=== PATIENT | female | born 1980 | race Caucasian/White ===

== ENCOUNTER 2020-10-29 11:16 | Inpatient (IN) | payer OTHER ==
[2020-10-29] MEDS ORDERED: NALOXONE 0.4 MG/ML 1 ML VIAL IV STA (11:35)
[2020-10-29] MEDS ORDERED: SODIUM CHLORIDE 0.9% 1,000 ML IV STA ×2 (11:35→11:36)
[2020-10-29 11:40] LABS: Glucose,Whole Blood 102 mg/dL (75-99)
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
[2020-10-29 12:02] LABS: Basophils % (A) 0 %; Eosinophils # (A) 0.2 k/uL (0-0.7); Eosinophils % (A) 2 %; HCT 47.3 % (34.0-46.0); HGB 16.2 gm/dL (11.4-16.0); Lymphocytes # (A) 1.9 k/uL (1.0-4.8); Lymphocytes % (A) 27 %; MCH 33.7 pg (25.0-35.0); MCHC 34.2 g/dL (31.0-37.0); MCV 98.6 fL (80.0-100.0); Mean Platelet Volume 8.4; Monocytes # (A) 0.3 k/uL (0-1.0); Monocytes % (A) 4 %; Neutrophils # (A) 4.8 k/uL (1.3-7.7); Neutrophils % (A) 66 %; Platelet Count 134 k/uL (150-450); RBC 4.79 m/uL (3.80-5.40); RDW 12.9 % (11.5-15.5); WBC 7.2 k/uL (3.8-10.6)
[2020-10-29 12:10] LABS: Amorphous Sediment,Urine Rare /hpf; Appearance,Urine Cloudy (Clear); Bacteria,Urine Few /hpf; Bilirubin,Urine Negative (Negative); Blood,Urine Negative (Negative); Color,Urine Yellow; Glucose,Urine (UA) Negative (Negative); Ketones,Urine Negative (Negative); Leukocyte Esterase,Urine Negative (Negative); Mucus,Urine Rare /hpf; Nitrite,Urine Negative (Negative); Protein,Urine Negative (Negative); Specific Gravity,Urine 1.017 (1.001-1.035); Squamous Epithelial Cell,Urine 5 /hpf (0-4); Urobilinogen,Urine <2.0 mg/dL (<2.0); WBC,Urine <1 /hpf (0-5)
[2020-10-29 12:14] LABS: ALT 16 U/L (4-34); AST 20 U/L (14-36); Acetaminophen <10.0 ug/mL; African American GFR (CKD) 59 (>60 ml/min/1.73 sqM); Albumin 4.2 g/dL (3.5-5.0); Alcohol <10 mg/dL; Alkaline Phosphatase 58 U/L (38-126); Anion Gap 7 mmol/L; Blood Urea Nitrogen 17 mg/dL (7-17); Calcium 9.3 mg/dL (8.4-10.2); Carbon Dioxide 23 mmol/L (22-30); Chloride 107 mmol/L (98-107); Creatine Kinase 42 U/L (30-135); Glucose 107 mg/dL (74-99); Lipase 240 U/L (23-300); Magnesium 2.1 mg/dL (1.6-2.3); Non-African American GFR(CKD) 51 (>60 ml/min/1.73 sqM); Potassium 4.3 mmol/L (3.5-5.1); Salicylate <1.0 mg/dL; Sodium 137 mmol/L (137-145); Total Bilirubin 0.6 mg/dL (0.2-1.3); Total Protein 7.2 g/dL (6.3-8.2)
[2020-10-29 12:16] LABS: Amphetamine Screen,Urine Detected (NotDetected); Barbiturate Screen,Urine Not Detected (NotDetected); Benzodiazepines Screen,Urine Detected (NotDetected); Cocaine Screen,Urine Not Detected (NotDetected); Methadone Screen, Urine Not Detected (NotDetected); Opiate Screen,Urine Not Detected (NotDetected); Oxycodone Screen, Urine Not Detected (NotDetected); Phencyclidine Screen,Urine Not Detected (NotDetected); Tricyclic Antidepressant,Urine Not Detected (NotDetected); Urn Cannabinoid Scrn Detected (NotDetected)
--- NOTE | 2020-10-29 12:45 | XR ---
EXAMINATION TYPE: XR chest 1V portable DATE OF EXAM: 10/29/2020 COMPARISON: Chest x-ray 07/17/2011 HISTORY: Altered mental status, unresponsive, drug overdose TECHNIQUE: Single frontal view of the chest is obtained. FINDINGS: There is no focal air space opacity, pleural effusion, or pneumothorax seen. The cardiac silhouette size is within normal limits. The osseous structures are intact. IMPRESSION: No acute process.
--- NOTE | 2020-10-29 13:08 | CT ---
EXAMINATION TYPE: CT brain an[place] wo con DATE OF EXAM: 10/29/2020 COMPARISON: CT 12/11/2009 HISTORY: overdose, altered mental status CT DLP: 1233.6 mGycm Automated exposure control for dose reduction was used. TECHNIQUE: CT scan of the head and cervical spine are performed without contrast. FINDINGS: There is no acute intracranial hemorrhage, mass effect, or midline shift identified. The ventricles and sulci are within normal limits in size. The globes are intact and the visualized sin uses are clear. Left frontal scalp shows some mild increased attenuation, correlate for ecchymosis, c ontusion Cervical spine is visualized in its entirety from C1 through upper thoracic levels and demonstrates s atisfactory alignment without evidence of acute fracture or dislocation. Prevertebral soft tissue ap pears within normal limits. The C1-C2 articulation is unremarkable. Air within the innominate vein, left jugular vein was likely introduced during intravenous administration IMPRESSION: 1. There is no acute fracture or dislocation evident in the cervical spine. 2. No acute intracranial hemorrhage, mass effect, or midline shift is seen.
[2020-10-29] MEDS ORDERED: NALOXONE 0.4 MG/ML 1 ML VIAL IV PRN (14:14)
--- NOTE | 2020-10-29 14:19 | ED ---
Medical Decision Making - Medical Decision Making The patient apparently is a patient Dr. Chen patient will be admitted to [facility] Dr. cohen - Lab Data Result diagrams: 10/29/20 11:53 10/29/20 11:53 Lab Results 10/29/20 10/29/20 10/29/20 Range/Units 11:39 11:53 11:53 WBC 7.2 (3.8-10.6) k/uL RBC 4.79 (3.80-5.40) m/uL Hgb 16.2 H (11.4-16.0) gm/dL Hct 47.3 H (34.0-46.0) % MCV 98.6 (80.0-100.0) fL MCH 33.7 (25.0-35.0) pg MCHC 34.2 (31.0-37.0) g/dL RDW 12.9 (11.5-15.5) % Plt Count 134 L (150-450) k/uL MPV 8.4 Neutrophils % 66 % Lymphocytes % 27 % Monocytes % 4 % Eosinophils % 2 % Basophils % 0 % Neutrophils # 4.8 (1.3-7.7) k/uL Lymphocytes # 1.9 (1.0-4.8) k/uL Monocytes # 0.3 (0-1.0) k/uL Eosinophils # 0.2 (0-0.7) k/uL Basophils # 0.0 (0-0.2) k/uL Sodium (137-145) mmol/L Potassium (3.5-5.1) mmol/L Chloride (98-107) mmol/L Carbon Dioxide (22-30) mmol/L Anion Gap mmol/L BUN (7-17) mg/dL Creatinine (0.52-1.04) mg/dL Est GFR (CKD-EPI)AfAm (>60 ml/min/1.73 sqM) Est GFR (CKD-EPI)NonAf (>60 ml/min/1.73 sqM) Glucose (74-99) mg/dL POC Glucose (mg/dL) 102 H (75-99) mg/dL POC Glu Boat Oar Maker ID Paul Goldstein Osmolality (280-301) mosm/kg Plasma Lactic Acid Boby (0.7-2.0) mmol/L Calcium (8.4-10.2) mg/dL Magnesium (1.6-2.3) mg/dL Total Bilirubin (0.2-1.3) mg/dL AST (14-36) U/L ALT (4-34) U/L Alkaline Phosphatase (38-126) U/L Creatine Kinase (30-135) U/L Troponin I (0.000-0.034) ng/mL Total Protein (6.3-8.2) g/dL Albumin (3.5-5.0) g/dL Lipase (23-300) U/L TSH (0.465-4.680) mIU/L Urine Color Yellow Urine Appearance Cloudy H (Clear) Urine pH 7.0 (5.0-8.0) Ur Specific [place] 1.017 (1.001-1.035) Urine Protein Negative (Negative) Urine Glucose (UA) Negative (Negative) Urine Ketones Negative (Negative) Urine Blood Negative (Negative) Urine Nitrite Negative (Negative) Urine Bilirubin Negative (Negative) Urine Urobilinogen <2.0 (<2.0) mg/dL Ur Leukocyte Esterase Negative (Negative) Urine WBC <1 (0-5) /hpf Ur Squamous Epith Cells 5 H (0-4) /hpf Amorphous Sediment Rare H (None) /hpf Urine Bacteria Few H (None) /hpf Urine Mucus Rare H (None) /hpf Urine HCG, Qual (Not Detectd) Salicylates mg/dL Urine Opiates Screen Not Detected (NotDetected) Ur Oxycodone Screen Not Detected (NotDetected) Urine Methadone Screen Not Detected (NotDetected) Ur Propoxyphene Screen Not Detected (NotDetected) Acetaminophen ug/mL Ur Barbiturates Screen Not Detected (NotDetected) U Tricyclic Antidepress Not Detected (NotDetected) Ur Phencyclidine Scrn Not Detected (NotDetected) Ur Amphetamines Screen Detected H (NotDetected) U Methamphetamines Scrn Detected H (NotDetected) U Benzodiazepines Scrn Detected H (NotDetected) Urine Cocaine Screen Not Detected (NotDetected) U Marijuana (THC) Screen Detected H (NotDetected) Serum Alcohol mg/dL Coronavirus (PCR) (Not Detectd) 10/29/20 10/29/20 10/29/20 Range/Units 11:53 11:53 11:53 WBC (3.8-10.6) k/uL RBC (3.80-5.40) m/uL Hgb (11.4-16.0) gm/dL Hct (34.0-46.0) % MCV (80.0-100.0) fL MCH (25.0-35.0) pg MCHC (31.0-37.0) g/dL RDW (11.5-15.5) % Plt Count (150-450) k/uL MPV Neutrophils % % Lymphocytes % % Monocytes % % Eosinophils % % Basophils % % Neutrophils # (1.3-7.7) k/uL Lymphocytes # (1.0-4.8) k/uL Monocytes # (0-1.0) k/uL Eosinophils # (0-0.7) k/uL Basophils # (0-0.2) k/uL Sodium 137 (137-145) mmol/L Potassium 4.3 (3.5-5.1) mmol/L Chloride 107 (98-107) mmol/L Carbon Dioxide 23 (22-30) mmol/L Anion Gap 7 mmol/L BUN 17 (7-17) mg/dL Creatinine 1.30 H (0.52-1.04) mg/dL Est GFR (CKD-EPI)AfAm 59 (>60 ml/min/1.73 sqM) Est GFR (CKD-EPI)NonAf 51 (>60 ml/min/1.73 sqM) Glucose 107 H (74-99) mg/dL POC Glucose (mg/dL) (75-99) mg/dL POC Glu Boat Oar Maker ID Osmolality 289 (280-301) mosm/kg Plasma Lactic Acid Boby 1.1 (0.7-2.0) mmol/L Calcium 9.3 (8.4-10.2) mg/dL Magnesium 2.1 (1.6-2.3) mg/dL Total Bilirubin 0.6 (0.2-1.3) mg/dL AST 20 (14-36) U/L ALT 16 (4-34) U/L Alkaline Phosphatase 58 (38-126) U/L Creatine Kinase 42 (30-135) U/L Troponin I (0.000-0.034) ng/mL Total Protein 7.2 (6.3-8.2) g/dL Albumin 4.2 (3.5-5.0) g/dL Lipase 240 (23-300) U/L TSH 1.270 (0.465-4.680) mIU/L Urine Color Urine Appearance (Clear) Urine pH (5.0-8.0) Ur Specific [place] (1.001-1.035) Urine Protein (Negative) Urine Glucose (UA) (Negative) Urine Ketones (Negative) Urine Blood (Negative) Urine Nitrite (Negative) Urine Bilirubin (Negative) Urine Urobilinogen (<2.0) mg/dL Ur Leukocyte Esterase (Negative) Urine WBC (0-5) /hpf Ur Squamous Epith Cells (0-4) /hpf Amorphous Sediment (None) /hpf Urine Bacteria (None) /hpf Urine Mucus (None) /hpf Urine HCG, Qual Not Detected (Not Detectd) Salicylates <1.0 mg/dL Urine Opiates Screen (NotDetected) Ur Oxycodone Screen (NotDetected) Urine Methadone Screen (NotDetected) Ur Propoxyphene Screen (NotDetected) Acetaminophen <10.0 ug/mL Ur Barbiturates Screen (NotDetected) U Tricyclic Antidepress (NotDetected) Ur Phencyclidine Scrn (NotDetected) Ur Amphetamines Screen (NotDetected) U Methamphetamines Scrn (NotDetected) U Benzodiazepines Scrn (NotDetected) Urine Cocaine Screen (NotDetected) U Marijuana (THC) Screen (NotDetected) Serum Alcohol <10 mg/dL Coronavirus (PCR) (Not Detectd) 10/29/20 10/29/20 Range/Units 11:53 11:56 WBC (3.8-10.6) k/uL RBC (3.80-5.40) m/uL Hgb (11.4-16.0) gm/dL Hct (34.0-46.0) % MCV (80.0-100.0) fL MCH (25.0-35.0) pg MCHC (31.0-37.0) g/dL RDW (11.5-15.5) % Plt Count (150-450) k/uL MPV Neutrophils % % Lymphocytes % % Monocytes % % Eosinophils % % Basophils % % Neutrophils # (1.3-7.7) k/uL Lymphocytes # (1.0-4.8) k/uL Monocytes # (0-1.0) k/uL Eosinophils # (0-0.7) k/uL Basophils # (0-0.2) k/uL Sodium (137-145) mmol/L Potassium (3.5-5.1) mmol/L Chloride (98-107) mmol/L Carbon Dioxide (22-30) mmol/L Anion Gap mmol/L BUN (7-17) mg/dL Creatinine (0.52-1.04) mg/dL Est GFR (CKD-EPI)AfAm (>60 ml/min/1.73 sqM) Est GFR (CKD-EPI)NonAf (>60 ml/min/1.73 sqM) Glucose (74-99) mg/dL POC Glucose (mg/dL) (75-99) mg/dL POC Glu Boat Oar Maker ID Osmolality (280-301) mosm/kg Plasma Lactic Acid Boby (0.7-2.0) mmol/L Calcium (8.4-10.2) mg/dL Magnesium (1.6-2.3) mg/dL Total Bilirubin (0.2-1.3) mg/dL AST (14-36) U/L ALT (4-34) U/L Alkaline Phosphatase (38-126) U/L Creatine Kinase (30-135) U/L Troponin I 0.169 H* (0.000-0.034) ng/mL Total Protein (6.3-8.2) g/dL Albumin (3.5-5.0) g/dL Lipase (23-300) U/L TSH (0.465-4.680) mIU/L Urine Color Urine Appearance (Clear) Urine pH (5.0-8.0) Ur Specific [place] (1.001-1.035) Urine Protein (Negative) Urine Glucose (UA) (Negative) Urine Ketones (Negative) Urine Blood (Negative) Urine Nitrite (Negative) Urine Bilirubin (Negative) Urine Urobilinogen (<2.0) mg/dL Ur Leukocyte Esterase (Negative) Urine WBC (0-5) /hpf Ur Squamous Epith Cells (0-4) /hpf Amorphous Sediment (None) /hpf Urine Bacteria (None) /hpf Urine Mucus (None) /hpf Urine HCG, Qual (Not Detectd) Salicylates mg/dL Urine Opiates Screen (NotDetected) Ur Oxycodone Screen (NotDetected) Urine Methadone Screen (NotDetected) Ur Propoxyphene Screen (NotDetected) Acetaminophen ug/mL Ur Barbiturates Screen (NotDetected) U Tricyclic Antidepress (NotDetected) Ur Phencyclidine Scrn (NotDetected) Ur Amphetamines Screen (NotDetected) U Methamphetamines Scrn (NotDetected) U Benzodiazepines Scrn (NotDetected) Urine Cocaine Screen (NotDetected) U Marijuana (THC) Screen (NotDetected) Serum Alcohol mg/dL Coronavirus (PCR) Detected A (Not Detectd) Disposition Clinical Impression: Drug overdose, Altered mental status, Bradycardia Disposition: ADMITTED IP TO THIS HOSP Condition: Fair Referrals: Dewayne George MD [Primary Care Provider] - 1-2 days
--- NOTE | 2020-10-29 14:47 | ED ---
Medical Decision Making - Lab Data Result diagrams: 10/29/20 11:53 10/29/20 11:53 Lab Results 10/29/20 10/29/20 10/29/20 Range/Units 11:39 11:53 11:53 WBC 7.2 (3.8-10.6) k/uL RBC 4.79 (3.80-5.40) m/uL Hgb 16.2 H (11.4-16.0) gm/dL Hct 47.3 H (34.0-46.0) % MCV 98.6 (80.0-100.0) fL MCH 33.7 (25.0-35.0) pg MCHC 34.2 (31.0-37.0) g/dL RDW 12.9 (11.5-15.5) % Plt Count 134 L (150-450) k/uL MPV 8.4 Neutrophils % 66 % Lymphocytes % 27 % Monocytes % 4 % Eosinophils % 2 % Basophils % 0 % Neutrophils # 4.8 (1.3-7.7) k/uL Lymphocytes # 1.9 (1.0-4.8) k/uL Monocytes # 0.3 (0-1.0) k/uL Eosinophils # 0.2 (0-0.7) k/uL Basophils # 0.0 (0-0.2) k/uL Sodium (137-145) mmol/L Potassium (3.5-5.1) mmol/L Chloride (98-107) mmol/L Carbon Dioxide (22-30) mmol/L Anion Gap mmol/L BUN (7-17) mg/dL Creatinine (0.52-1.04) mg/dL Est GFR (CKD-EPI)AfAm (>60 ml/min/1.73 sqM) Est GFR (CKD-EPI)NonAf (>60 ml/min/1.73 sqM) Glucose (74-99) mg/dL POC Glucose (mg/dL) 102 H (75-99) mg/dL POC Glu Exterior Interior Specialist ID Paul Goldstein Osmolality ([phone]) mosm/kg Plasma Lactic Acid Boby (0.7-2.0) mmol/L Calcium (8.4-10.2) mg/dL Magnesium (1.6-2.3) mg/dL Total Bilirubin (0.2-1.3) mg/dL AST (14-36) U/L ALT (4-34) U/L Alkaline Phosphatase (38-126) U/L Creatine Kinase (30-135) U/L Troponin I (0.000-0.034) ng/mL Total Protein (6.3-8.2) g/dL Albumin (3.5-5.0) g/dL Lipase (23-300) U/L TSH (0.465-4.680) mIU/L Urine Color Yellow Urine Appearance Cloudy H (Clear) Urine pH 7.0 (5.0-8.0) Ur Specific [place] 1.017 (1.001-1.035) Urine Protein Negative (Negative) Urine Glucose (UA) Negative (Negative) Urine Ketones Negative (Negative) Urine Blood Negative (Negative) Urine Nitrite Negative (Negative) Urine Bilirubin Negative (Negative) Urine Urobilinogen <2.0 (<2.0) mg/dL Ur Leukocyte Esterase Negative (Negative) Urine WBC <1 (0-5) /hpf Ur Squamous Epith Cells 5 H (0-4) /hpf Amorphous Sediment Rare H (None) /hpf Urine Bacteria Few H (None) /hpf Urine Mucus Rare H (None) /hpf Urine HCG, Qual (Not Detectd) Salicylates mg/dL Urine Opiates Screen Not Detected (NotDetected) Ur Oxycodone Screen Not Detected (NotDetected) Urine Methadone Screen Not Detected (NotDetected) Ur Propoxyphene Screen Not Detected (NotDetected) Acetaminophen ug/mL Ur Barbiturates Screen Not Detected (NotDetected) U Tricyclic Antidepress Not Detected (NotDetected) Ur Phencyclidine Scrn Not Detected (NotDetected) Ur Amphetamines Screen Detected H (NotDetected) U Methamphetamines Scrn Detected H (NotDetected) U Benzodiazepines Scrn Detected H (NotDetected) Urine Cocaine Screen Not Detected (NotDetected) U Marijuana (THC) Screen Detected H (NotDetected) Serum Alcohol mg/dL Coronavirus (PCR) (Not Detectd) 10/29/20 10/29/20 10/29/20 Range/Units 11:53 11:53 11:53 WBC (3.8-10.6) k/uL RBC (3.80-5.40) m/uL Hgb (11.4-16.0) gm/dL Hct (34.0-46.0) % MCV (80.0-100.0) fL MCH (25.0-35.0) pg MCHC (31.0-37.0) g/dL RDW (11.5-15.5) % Plt Count (150-450) k/uL MPV Neutrophils % % Lymphocytes % % Monocytes % % Eosinophils % % Basophils % % Neutrophils # (1.3-7.7) k/uL Lymphocytes # (1.0-4.8) k/uL Monocytes # (0-1.0) k/uL Eosinophils # (0-0.7) k/uL Basophils # (0-0.2) k/uL Sodium 137 (137-145) mmol/L Potassium 4.3 (3.5-5.1) mmol/L Chloride 107 (98-107) mmol/L Carbon Dioxide 23 (22-30) mmol/L Anion Gap 7 mmol/L BUN 17 (7-17) mg/dL Creatinine 1.30 H (0.52-1.04) mg/dL Est GFR (CKD-EPI)AfAm 59 (>60 ml/min/1.73 sqM) Est GFR (CKD-EPI)NonAf 51 (>60 ml/min/1.73 sqM) Glucose 107 H (74-99) mg/dL POC Glucose (mg/dL) (75-99) mg/dL POC Glu Exterior Interior Specialist ID Osmolality 289 (280-301) mosm/kg Plasma Lactic Acid Boby 1.1 (0.7-2.0) mmol/L Calcium 9.3 (8.4-10.2) mg/dL Magnesium 2.1 (1.6-2.3) mg/dL Total Bilirubin 0.6 (0.2-1.3) mg/dL AST 20 (14-36) U/L ALT 16 (4-34) U/L Alkaline Phosphatase 58 (38-126) U/L Creatine Kinase 42 (30-135) U/L Troponin I (0.000-0.034) ng/mL Total Protein 7.2 (6.3-8.2) g/dL Albumin 4.2 (3.5-5.0) g/dL Lipase 240 (23-300) U/L TSH 1.270 (0.465-4.680) mIU/L Urine Color Urine Appearance (Clear) Urine pH (5.0-8.0) Ur Specific [place] (1.001-1.035) Urine Protein (Negative) Urine Glucose (UA) (Negative) Urine Ketones (Negative) Urine Blood (Negative) Urine Nitrite (Negative) Urine Bilirubin (Negative) Urine Urobilinogen (<2.0) mg/dL Ur Leukocyte Esterase (Negative) Urine WBC (0-5) /hpf Ur Squamous Epith Cells (0-4) /hpf Amorphous Sediment (None) /hpf Urine Bacteria (None) /hpf Urine Mucus (None) /hpf Urine HCG, Qual Not Detected (Not Detectd) Salicylates <1.0 mg/dL Urine Opiates Screen (NotDetected) Ur Oxycodone Screen (NotDetected) Urine Methadone Screen (NotDetected) Ur Propoxyphene Screen (NotDetected) Acetaminophen <10.0 ug/mL Ur Barbiturates Screen (NotDetected) U Tricyclic Antidepress (NotDetected) Ur Phencyclidine Scrn (NotDetected) Ur Amphetamines Screen (NotDetected) U Methamphetamines Scrn (NotDetected) U Benzodiazepines Scrn (NotDetected) Urine Cocaine Screen (NotDetected) U Marijuana (THC) Screen (NotDetected) Serum Alcohol <10 mg/dL Coronavirus (PCR) (Not Detectd) 10/29/20 10/29/20 Range/Units 11:53 11:56 WBC (3.8-10.6) k/uL RBC (3.80-5.40) m/uL Hgb (11.4-16.0) gm/dL Hct (34.0-46.0) % MCV (80.0-100.0) fL MCH (25.0-35.0) pg MCHC (31.0-37.0) g/dL RDW (11.5-15.5) % Plt Count (150-450) k/uL MPV Neutrophils % % Lymphocytes % % Monocytes % % Eosinophils % % Basophils % % Neutrophils # (1.3-7.7) k/uL Lymphocytes # (1.0-4.8) k/uL Monocytes # (0-1.0) k/uL Eosinophils # (0-0.7) k/uL Basophils # (0-0.2) k/uL Sodium (137-145) mmol/L Potassium (3.5-5.1) mmol/L Chloride (98-107) mmol/L Carbon Dioxide (22-30) mmol/L Anion Gap mmol/L BUN (7-17) mg/dL Creatinine (0.52-1.04) mg/dL Est GFR (CKD-EPI)AfAm (>60 ml/min/1.73 sqM) Est GFR (CKD-EPI)NonAf (>60 ml/min/1.73 sqM) Glucose (74-99) mg/dL POC Glucose (mg/dL) (75-99) mg/dL POC Glu Exterior Interior Specialist ID Osmolality (280-301) mosm/kg Plasma Lactic Acid Boby (0.7-2.0) mmol/L Calcium (8.4-10.2) mg/dL Magnesium (1.6-2.3) mg/dL Total Bilirubin (0.2-1.3) mg/dL AST (14-36) U/L ALT (4-34) U/L Alkaline Phosphatase (38-126) U/L Creatine Kinase (30-135) U/L Troponin I 0.169 H* (0.000-0.034) ng/mL Total Protein (6.3-8.2) g/dL Albumin (3.5-5.0) g/dL Lipase (23-300) U/L TSH (0.465-4.680) mIU/L Urine Color Urine Appearance (Clear) Urine pH (5.0-8.0) Ur Specific [place] (1.001-1.035) Urine Protein (Negative) Urine Glucose (UA) (Negative) Urine Ketones (Negative) Urine Blood (Negative) Urine Nitrite (Negative) Urine Bilirubin (Negative) Urine Urobilinogen (<2.0) mg/dL Ur Leukocyte Esterase (Negative) Urine WBC (0-5) /hpf Ur Squamous Epith Cells (0-4) /hpf Amorphous Sediment (None) /hpf Urine Bacteria (None) /hpf Urine Mucus (None) /hpf Urine HCG, Qual (Not Detectd) Salicylates mg/dL Urine Opiates Screen (NotDetected) Ur Oxycodone Screen (NotDetected) Urine Methadone Screen (NotDetected) Ur Propoxyphene Screen (NotDetected) Acetaminophen ug/mL Ur Barbiturates Screen (NotDetected) U Tricyclic Antidepress (NotDetected) Ur Phencyclidine Scrn (NotDetected) Ur Amphetamines Screen (NotDetected) U Methamphetamines Scrn (NotDetected) U Benzodiazepines Scrn (NotDetected) Urine Cocaine Screen (NotDetected) U Marijuana (THC) Screen (NotDetected) Serum Alcohol mg/dL Coronavirus (PCR) Detected A (Not Detectd) Disposition Clinical Impression: Drug overdose, Altered mental status, Bradycardia, Elevated troponin Disposition: ADMITTED IP TO THIS [facility] Condition: Fair Referrals: Dewayne George MD [Primary Care Provider] - 1-2 days
[2020-10-29] MEDS ORDERED: bisacodyL 5 MG TABLET.DR PO PRN (16:07)
--- NOTE | 2020-10-29 16:20 | P.HPIM ---
History of Present Illness 40-year-old female was brought in unresponsive. I'm unable to get any history from the patient and patient probably overdosed on Klonopin and Lexapro. I do not have an EKG available EKG will be ordered. Patient's pupils are reactive and are in mid dilated position. A she has mild elevated troponin of 0.169. Patient's creatinine is 1.3. Baseline creatinine is not available. Is also bradycardic urine drug screen is positive for abdomens benzodiazepines and marijuana. Chest x-ray head and cervical spine CT did not show any significant abnormality. Review of Systems Unable to obtain due to her clinical condition Past Medical History Past Medical History: Unable to Obtain History of Any Multi-Drug Resistant Organisms: Unobtainable Past Surgical History: Unable to Obtain Smoking Status: Unknown if ever smoked Past Alcohol Use History: Unable to Obtain Past Drug Use History: Unable to Obtain Medications and Allergies Home Medications Medication Instructions Recorded Confirmed Type Albuterol Sulfate [Proventil Hfa] 1 puff INHALATION RT-Q4H PRN 10/29/20 10/29/20 History Bisacodyl 5 mg PO DAILY PRN 10/29/20 10/29/20 History Cholecalciferol [Vitamin D3 (25 25 mcg PO DAILY 10/29/20 10/29/20 History Mcg = 1000 Iu)] DULoxetine HCL [Cymbalta] 60 mg PO DAILY 10/29/20 10/29/20 History Fluticasone Propion/Salmeterol 1 puff INHALATION RT-BID 10/29/20 10/29/20 Hist ory [Wixela 100-50 Inhub] Gabapentin 600 mg PO BID 10/29/20 10/29/20 History Levothyroxine Sodium [Synthroid] 75 mcg PO DAILY 10/29/20 10/29/20 History QUEtiapine [SEROquel] 50 mg PO BID PRN 10/29/20 10/29/20 History QUEtiapine [SEROquel] 100 mg PO HS 10/29/20 10/29/20 History Topiramate [Topamax] 200 mg PO BID 10/29/20 10/29/20 History Vitamin B Complex 1 cap PO BID 10/29/20 10/29/20 History cloNIDine HCL [Catapres] 0.2 mg PO HS 10/29/20 10/29/20 History traZODone HCL 50 mg PO HS 10/29/20 10/29/20 History Allergies Allergy/AdvReac Type Severity Reaction Status Date / Time No Known Allergies Allergy Verified 10/29/20 12:22 Physical Exam Vitals: Vital Signs Temp Pulse Resp BP Pulse Ox 10/29/20 15:49 97.8 F 37 L 12 138/96 100 10/29/20 14:39 36 L 12 142/92 100 10/29/20 14:05 36 L 12 141/98 100 10/29/20 12:58 35 L 12 137/91 100 10/29/20 11:59 14 10/29/20 11:54 97.7 F 35 L 12 153/99 100 10/29/20 11:34 32 L 14 106/80 100 10/29/20 11:19 38 L 14 135/92 100 Intake and Output 10/29/20 10/29/20 10/29/20 06:59 14:59 22:59 Output Total 1000 Balance -1000 Output: Urine 1000 Other: Weight 54.431 kg PHYSICAL EXAMINATION: GENERAL: She does have a gag reflex patient can protect her airway but the nonresponsive events to the painful stimuli. HEENT: Pupils are round and equally reacting to light. EOMI. No scleral icterus. No conjunctival pallor. Normocephalic, atraumatic. No pharyngeal erythema. No thyromegaly. CARDIOVASCULAR: S1 and S2 present. No murmurs, rubs, or gallops. PULMONARY: Chest is clear to auscultation, no wheezing or crackles. ABDOMEN: Soft, nontender, nondistended, normoactive bowel sounds. No palpable organomegaly. MUSCULOSKELETAL: No joint swelling or deformity. EXTREMITIES: No cyanosis, clubbing, or pedal edema. NEUROLOGICAL: Unable to assess SKIN: No rashes. Results CBC & Chem 7: 10/29/20 11:53 10/29/20 11:53 Labs: Abnormal Lab Results - Last 24 Hours (Table) 10/29/20 10/29/20 10/29/20 Range/Units 11:39 11:53 11:53 Hgb 16.2 H (11.4-16.0) gm/dL Hct 47.3 H (34.0-46.0) % Plt Count 134 L (150-450) k/uL Creatinine (0.52-1.04) mg/dL Glucose (74-99) mg/dL POC Glucose (mg/dL) 102 H (75-99) mg/dL Troponin I (0.000-0.034) ng/mL Urine Appearance Cloudy H (Clear) Ur Squamous Epith Cells 5 H (0-4) /hpf Amorphous Sediment Rare H (None) /hpf Urine Bacteria Few H (None) /hpf Urine Mucus Rare H (None) /hpf Ur Amphetamines Screen Detected H (NotDetected) U Methamphetamines Scrn Detected H (NotDetected) U Benzodiazepines Scrn Detected H (NotDetected) U Marijuana (THC) Screen Detected H (NotDetected) Coronavirus (PCR) (Not Detectd) 10/29/20 10/29/20 10/29/20 Range/Units 11:53 11:53 11:56 Hgb (11.4-16.0) gm/dL Hct (34.0-46.0) % Plt Count (150-450) k/uL Creatinine 1.30 H (0.52-1.04) mg/dL Glucose 107 H (74-99) mg/dL POC Glucose (mg/dL) (75-99) mg/dL Troponin I 0.169 H* (0.000-0.034) ng/mL Urine Appearance (Clear) Ur Squamous Epith Cells (0-4) /hpf Amorphous Sediment (None) /hpf Urine Bacteria (None) /hpf Urine Mucus (None) /hpf Ur Amphetamines Screen (NotDetected) U Methamphetamines Scrn (NotDetected) U Benzodiazepines Scrn (NotDetected) U Marijuana (THC) Screen (NotDetected) Coronavirus (PCR) Detected A (Not Detectd) Assessment and Plan Plan: Toxic encephalopathy from overdose on medications possibly Klonopin and SSRI. We'll obtain EKG. Patient will be monitored on telemetry. And patient did urin e drug screen is positive for amphetamines benzodiazepines and marijuana as well. Patient can you done IV fluids hold off for antipsychotics and antidepressants temporarily. -Sinus bradycardia: Clinically appears to be sinus bradycardia will obtain EKG. -Mildly elevated troponin secondary to renal failure. We'll repeat 2 more sets of troponins -Mild acute renal failure secondary to renal azotemia from dehydration probably because of recent amphetamine use it repeat basic metabolic profile tomorrow continue with IV fluids -DVT prophylaxis with subcutaneous heparin GI prophylaxis Protonix IV
[2020-10-29] MEDS: SODIUM CHLORIDE 0.9% 1,000 ML IV SCH (18:13)
[2020-10-29] MEDS: PANTOPRAZOLE 40 MG/10 ML VIAL IVP SCH (18:13)
[2020-10-29] MEDS ORDERED: QUEtiapine 100 MG TAB PO SCH (21:00)
[2020-10-29] MEDS: SYMBICORT 80-4.5 MCG INHALER INHALATION SCH (21:40)
[2020-10-29] MEDS: MAGNESIUM SULFATE-D5W PMX 1 GM in DEXTROSE/WATER 1 100ML.BAG IVPB SCH (23:46)
[2020-10-29] MEDS: TOPIRAMATE 100 MG TAB PO SCH (23:47)
[2020-10-30 00:23] LABS: Basophils % (A) 0 %; Eosinophils # (A) 0.1 k/uL (0-0.7); Eosinophils % (A) 2 %; HCT 44.6 % (34.0-46.0); Lymphocytes # (A) 2.1 k/uL (1.0-4.8); Lymphocytes % (A) 31 %; MCH 33.3 pg (25.0-35.0); MCHC 33.6 g/dL (31.0-37.0); MCV 99.3 fL (80.0-100.0); Mean Platelet Volume 9.1; Monocytes # (A) 0.4 k/uL (0-1.0); Monocytes % (A) 5 %; Neutrophils # (A) 4.2 k/uL (1.3-7.7); Neutrophils % (A) 61 %; RBC 4.49 m/uL (3.80-5.40); WBC 6.8 k/uL (3.8-10.6)
[2020-10-30 00:46] LABS: Albumin 2.9 g/dL (3.5-5.0); Calcium 7.9 mg/dL (8.4-10.2); Potassium 4.4 mmol/L (3.5-5.1); Total Bilirubin 0.7 mg/dL (0.2-1.3); Total Protein 5.8 g/dL (6.3-8.2)
[2020-10-30] MEDS: MAGNESIUM SULFATE-D5W PMX 1 GM in DEXTROSE/WATER 1 100ML.BAG IVPB SCH (01:38)
[2020-10-30] MEDS: HEPARIN SODIUM,PORCINE/PF 5,000 UNIT/0.5 ML SYRINGE SQ SCH ×3 (01:39→18:12)
[2020-10-30 01:59] LABS: Platelet Count 86 k/uL (150-450)
[2020-10-30] MEDS: LEVOTHYROXINE 75 MCG TAB PO SCH (07:29)
[2020-10-30] MEDS: SYMBICORT 80-4.5 MCG INHALER INHALATION SCH ×2 (08:32→21:00)
[2020-10-30] MEDS ORDERED: DULoxetine HCL 60 MG CAPSULE.DR PO SCH (09:00)
[2020-10-30] MEDS: PANTOPRAZOLE 40 MG/10 ML VIAL IVP SCH (09:09)
[2020-10-30] MEDS: SODIUM CHLORIDE 0.9% 1,000 ML IV SCH ×2 (09:10→13:21)
[2020-10-30 09:16] LABS: Glucose,Whole Blood 71 mg/dL (75-99)
[2020-10-30] MEDS: CHOLECALCIFEROL 25 MCG (1000 IU) TABLET PO SCH (09:23)
[2020-10-30] MEDS: TOPIRAMATE 100 MG TAB PO SCH ×2 (09:23→20:49)
[2020-10-30 14:57] LABS: Glucose,Whole Blood 72 mg/dL (75-99)
--- NOTE | 2020-10-30 22:59 | P.PN ---
Subjective Progress Note Date: 10/30/20 She remains lethargic today, denies any chest pain, shortness of breath, headache, chills. Pt maintaining 100% SpO2 on RA. Objective - Vital Signs Vital signs: Vital Signs Temp 97.7 F 10/30/20 07:37 Pulse 45 L 10/30/20 20:00 Resp 16 10/30/20 20:00 BP 105/71 10/30/20 20:00 Pulse Ox 100 10/30/20 20:00 - Exam General: well nourished, well developed, NAD. Vitals reviewed Lungs: normal respiratory effort, no wheezes or rales CV: Regular rate and rhythm, no murmur. Peripheral pulses 2+ Abdomen: soft, nondistended, no organomegaly Skin: warm and dry. - Labs CBC & Chem 7: 10/30/20 00:10 10/30/20 00:10 Labs: Abnormal Lab Results - Last 24 Hours (Table) 10/30/20 10/30/20 10/30/20 Range/Units 00:10 00:10 00:10 Plt Count 86 L (150-450) k/uL Chloride 112 H (98-107) mmol/L Carbon Dioxide 18 L (22-30) mmol/L Creatinine 1.06 H (0.52-1.04) mg/dL POC Glucose (mg/dL) (75-99) mg/dL Calcium 7.9 L (8.4-10.2) mg/dL Troponin I 0.081 H* (0.000-0.034) ng/mL Total Protein 5.8 L (6.3-8.2) g/dL Albumin 2.9 L (3.5-5.0) g/dL 10/30/20 10/30/20 Range/Units 09:15 14:55 Plt Count (150-450) k/uL Chloride (98-107) mmol/L Carbon Dioxide (22-30) mmol/L Creatinine (0.52-1.04) mg/dL POC Glucose (mg/dL) 71 L 72 L (75-99) mg/dL Calcium (8.4-10.2) mg/dL Troponin I (0.000-0.034) ng/mL Total Protein (6.3-8.2) g/dL Albumin (3.5-5.0) g/dL Assessment and Plan Plan: Continue with IV fluids, cont topamax. Continue with heparin. Closely monitor
[2020-10-31] MEDS: SODIUM CHLORIDE 0.9% 1,000 ML IV SCH ×3 (00:31→22:49)
[2020-10-31] MEDS: HEPARIN SODIUM,PORCINE/PF 5,000 UNIT/0.5 ML SYRINGE SQ SCH ×4 (00:31→23:39)
[2020-10-31 04:07] LABS: Glucose,Whole Blood 63 mg/dL (75-99)
[2020-10-31 04:31] LABS: Glucose,Whole Blood 73 mg/dL (75-99)
[2020-10-31] MEDS: ALBUTEROL HFA INHALER INHALATION PRN ×2 (07:14→16:34)
[2020-10-31] MEDS: SYMBICORT 80-4.5 MCG INHALER INHALATION SCH ×2 (07:14→20:13)
[2020-10-31 08:42] LABS: Glucose,Whole Blood 84 mg/dL (75-99)
[2020-10-31] MEDS: PANTOPRAZOLE 40 MG/10 ML VIAL IVP SCH (09:15)
[2020-10-31] MEDS: CHOLECALCIFEROL 25 MCG (1000 IU) TABLET PO SCH (09:15)
[2020-10-31] MEDS: ZINC SULFATE 220 MG CAP PO SCH (10:56)
[2020-10-31] MEDS: TOPIRAMATE 100 MG TAB PO SCH ×2 (10:56→22:48)
[2020-10-31] MEDS: ASCORBIC ACID 500 MG TAB PO SCH ×2 (10:56→22:48)
[2020-10-31] MEDS: LEVOTHYROXINE 75 MCG TAB PO SCH (10:56)
[2020-10-31 10:59] VITALS: BMI 18.2
[2020-10-31 12:22] LABS: Glucose,Whole Blood 135 mg/dL (75-99)
--- NOTE | 2020-10-31 13:13 | P.CN ---
Psychiatric Consult - . Consult date: 10/31/20 Consult:: 10/31/20 12:54 IDENTIFYING DATA: This patient is a 40-year-old female who currently lives with her boyfriend in a house. REASON FOR REFERRAL: Psychiatry was consulted for the suicide attempt, overdose HISTORY OF PRESENT ILLNESS: The patient presented to the hospital on 10/29 after an overdose on her Klonopin and Lexapro. According to ER report patient was apparently found by family members and was unresponsive. Patient has been bradycardic since being in the hospital. She was noted to have a burn kamari on her shirt upon arrival to the ER. Patient's urinalysis was negative. Her UDS was positive for marijuana, and the diazepam to methamphetamine. Patient had an elevation in her troponins. Patient had cervical spine CT which was negative for any acute changes. Movie Star spoke with patient's nurse who claims that patient's blood pressure has been running fairly low however she has been fairly lethargic however has been eating. Nurse also claims that patient has been alert and oriented 3. Patient was seen at the bedside and due to patient testing positive for COVID, she was given a mask by mortgage or loan underwriter however patient appeared to be confused and had a difficult time putting on the mask. She was fairly concrete and appeared to be lethargic. She was alert and oriented 2 today and did not know what today's date is. She spoke vaguely about why she came to the hospital and states that she is homeless now and feels that she is "out of it". She was not able to respond to many questions and fell back asleep. She claims that she was having suicidal thoughts however no intent or plan. At this time patient denies any homical ideations, intent or plan. Patient denies any auditory, visual hallucinations and denies any paranoia or delusions. PAST PSYCHIATRIC HISTORY: Patient has a a history of psychiatric illness however has no documented diagnosis. Patient was previously on Cymbalta, Seroquel and trazodone. [Patient denies any previous psychiatric hospitalizations.] Patient was unable to give further psychiatric history due to her mental status. PAST MEDICAL HISTORY: Thyroid disorder, COPD ALLERGIES: as per EMR. CHEMICAL DEPENDENCY HISTORY: as per HPI. FAMILY PSYCHIATRIC/SUBSTANCE USE HISTORY: Unable to obtain SOCIAL HISTORY: Unable to obtain MENTAL STATUS EXAM: General Appearance: Patient appears to be stated age is lethargic, laying in bed, difficult to redirect. Patient appears to have poor hygiene and grooming wearing hospital gown with [poor] eye contact. Behavior: [Patient is calmly lying in bed without any agitated behavior.] Lethargic. Speech: mumbles, soft tone Mood/Affect: Patient reports their mood is "[depressed]", affect is congruent and constricted Suicidality/Homicidality: Patient denies having any homicidal ideation intent or plan. She admits to suicidal ideations, no intent or plan. Perceptions: Patient denies any visual hallucinations [and denies any auditory hallucinations] Though content/process: [place], poverty of content, vague/guarded Memory and concentration: AOX2, does not know what today's date is. Poor attention span. Judgment and insight: [poor] IMPRESSIONS: Delirium secondary to medications (overdose) Depressive disorder unspecified, rule out adjustment disorder vs. bipolar depression vs. major depressive disorder Methamphetamine abuse Cannabis use disorder Nicotine dependence. PLAN: -Delirium precautions recommended with patient including - avoiding use of narcotics and DIRECTOR OF SPEECH PATHOLOGY sedatives, limit anticholinergic medications when possible, frequent re-orientation, minimize use of restraints, open window shades during the day and close them at night -Would recommend the following medication changes/additions: Will hold off on psych meds at this time as patient is still fairly delirious and lethargic. -1:1 sitter for safety, I informed nurse that this should be started right away -Cannot leave AMA at this time. Patient will need a petition and certification if attempting to leave AMA. -Communicated plan to patient's nurse -Will continue to follow along, patient will likely need to be transferred to [facility] once she is medically stabilized. -Please contact with any questions.
--- NOTE | 2020-10-31 15:12 | P.PN ---
Subjective Progress Note Date: 10/31/20 This is a 40-year-old female admitted with drug overdose, suicidal and multiple other medical issues. More alert today, fatigued, reporting she recently became homeless, intentionally overdosed on Lexapro and Klonopin. Patient tested positive for coronavirus, asymptomatic. Denies cough, denies shortness of breath. Denies chest pain, palpitations or shortness of breath. Denies nausea, vomiting or diarrhea. Denies abdominal pain Objective - Vital Signs Vital signs: Vital Signs Temp 99 F 10/31/20 08:00 Pulse 57 L 10/31/20 08:00 Resp 15 10/31/20 08:00 BP 86/55 10/31/20 08:00 Pulse Ox 99 10/31/20 08:00 - Exam - Exam General: well nourished, alert and oriented 2 ,more alert today,fatigued, well developed, NAD. Vitals reviewed Lungs: normal respiratory effort, no wheezes or rales CV: Regular rate and rhythm, no murmur. Peripheral pulses 2+ Abdomen: soft, nondistended, no organomegaly Skin: warm and dry. - Labs CBC & Chem 7: 10/30/20 00:10 10/30/20 00:10 Labs: Abnormal Lab Results - Last 24 Hours (Table) 10/30/20 10/31/20 10/31/20 Range/Units 14:55 04:05 04:29 POC Glucose (mg/dL) 72 L 63 L 73 L (75-99) mg/dL Assessment and Plan Assessment: Toxic encephalopathy secondary to reported intentional overdose of Klonopin and Lexapro. Polysubstance abuse with Drug screen positive for amphetamines, methamphetamine, benzos ,THC. Sinus bradycardia secondary to the above Mild acute renal failure secondary to prerenal azotemia related to dehydration Mildly elevated troponins secondary to the above Depression Positive Covid-19, asymptomatic Nicotine dependence Plan: Continue on current medication regime ,monitoring and symptomatic treatment. Maintain continuous telemetry monitoring, suicide precautions with loss prevention/safety district manager. Psychiatry consulted as patient this morning reports intentional overdose. Currently denies being suicidal/homicidal-has no plan at this time. Continues on IV fluid hydration, Topamax, anticoagulated on heparin. Echo pending.Social work consulted as patient reports recently became homeless.Prognosis guarded given multiple complex medical issues. The impression and plan of care has been dictated as directed. : I performed a history and examination of this patient, discussed the same with the dictator. I agree with the dictator's note ,documented as a scribe. Any additional findings or plans will be noted.
[2020-10-31 16:41] LABS: Glucose,Whole Blood 98 mg/dL (75-99)
[2020-10-31 23:49] LABS: Glucose,Whole Blood 157 mg/dL (75-99)
[2020-11-01] MEDS: LEVOTHYROXINE 75 MCG TAB PO SCH (05:24)
[2020-11-01] MEDS: SODIUM CHLORIDE 0.9% 1,000 ML IV SCH ×2 (05:43→14:42)
[2020-11-01 07:09] LABS: African American GFR (CKD) 80 (>60 ml/min/1.73 sqM); Anion Gap 1 mmol/L; Blood Urea Nitrogen 18 mg/dL (7-17); Calcium 7.6 mg/dL (8.4-10.2); Carbon Dioxide 23 mmol/L (22-30); Chloride 114 mmol/L (98-107); Glucose 86 mg/dL (74-99); Non-African American GFR(CKD) 69 (>60 ml/min/1.73 sqM); Potassium 4.1 mmol/L (3.5-5.1); Sodium 138 mmol/L (137-145)
[2020-11-01 07:11] LABS: Glucose,Whole Blood 94 mg/dL (75-99)
[2020-11-01] MEDS: SYMBICORT 80-4.5 MCG INHALER INHALATION SCH ×2 (07:34→20:44)
[2020-11-01] MEDS: ZINC SULFATE 220 MG CAP PO SCH (08:09)
[2020-11-01] MEDS: ASCORBIC ACID 500 MG TAB PO SCH ×2 (08:09→19:48)
[2020-11-01] MEDS: PANTOPRAZOLE 40 MG TABLET PO SCH (08:09)
[2020-11-01] MEDS: CHOLECALCIFEROL 25 MCG (1000 IU) TABLET PO SCH (08:09)
[2020-11-01] MEDS: HEPARIN SODIUM,PORCINE/PF 5,000 UNIT/0.5 ML SYRINGE SQ SCH ×3 (08:09→23:14)
[2020-11-01] MEDS: TOPIRAMATE 100 MG TAB PO SCH ×2 (08:09→19:48)
[2020-11-01 11:20] LABS: Glucose,Whole Blood 98 mg/dL (75-99)
[2020-11-01 12:55] LABS: Basophils # (A) 0.02 X 10*3/uL (0.00-0.10); Basophils % (A) 0.5 %; Eosinophils # (A) 0.02 X 10*3/uL (0.04-0.35); Eosinophils % (A) 0.5 %; HCT 35.6 % (37.2-46.3); HGB 11.8 g/dL (12.0-15.0); Lymphocytes # (A) 1.98 X 10*3/uL (0.90-5.00); Lymphocytes % (A) 50.8 %; MCH 33.4 pg (27.0-32.0); MCHC 33.1 g/dL (32.0-37.0); MCV 100.8 fL (80.0-97.0); Mean Platelet Volume 11.8 fL (9.5-12.2); Monocytes % (A) 5.1 %; Neutrophils # (A) 1.68 X 10*3/uL (1.80-7.70); Neutrophils % (A) 43.1 %; Platelet Count 66 X 10*3/uL (140-440); RBC 3.53 X 10*6/uL (4.10-5.20); RDW 13.1 % (11.5-14.5)
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
[2020-11-01] MEDS: DULoxetine HCL 30 MG CAPSULE.DR PO SCH (14:41)
[2020-11-01 17:12] LABS: Glucose,Whole Blood 77 mg/dL (75-99)
--- NOTE | 2020-11-01 17:45 | P.PN ---
Subjective Progress Note Date: 11/01/20 This is a 40-year-old female admitted with drug overdose, suicidal and multiple other medical issues. More alert today, fatigued, reporting she recently became homeless, intentionally overdosed on Lexapro and Klonopin. Patient tested positive for coronavirus, asymptomatic. Denies cough, denies shortness of breath. Denies chest pain, palpitations or shortness of breath. Denies nausea, vomiting or diarrhea. Denies abdominal pain 11/01/2020, remains in suicide precautions with sitter at bedside. Denies chest pain, palpitations or shortness of breath. Hypotensive, blood pressures in the 80s, complains some mild "woozy" feelings. Remains on Cymbalta. Maintained on IV fluid hydration. Evaluated by psychiatry with recommendations noted and appreciated. Objective - Vital Signs Vital signs: Vital Signs Temp 97.9 F 11/01/20 14:00 Pulse 73 11/01/20 14:00 Resp 16 11/01/20 14:00 BP 103/63 11/01/20 14:00 Pulse Ox 99 11/01/20 14:00 Intake & Output 10/31/20 11/01/20 11/01/20 18:59 06:59 18:59 Output Total 1600 1500 Balance -1600 -1500 Weight 54.431 kg Output: Urine 1600 1500 Other: Voiding Method Indwelling Catheter Indwelling Catheter - Exam - Exam General: well nourished, alert and oriented 3 ,more alert today,NAD. Vitals reviewed Lungs: normal respiratory effort, no wheezes or rales CV: Regular rate and rhythm, no murmur. Peripheral pulses 2+ Abdomen: soft, nondistended, no organomegaly Skin: warm and dry. - Labs CBC & Chem 7: 11/01/20 06:34 11/01/20 06:34 Labs: Abnormal Lab Results - Last 24 Hours (Table) 10/31/20 11/01/20 11/01/20 Range/Units 23:44 06:34 06:34 WBC 3.90 L (4.50-10.00) X 10*3/uL RBC 3.53 L (4.10-5.20) X 10*6/uL Hgb 11.8 L (12.0-15.0) g/dL Hct 35.6 L (37.2-46.3) % MCV 100.8 H (80.0-97.0) fL MCH 33.4 H (27.0-32.0) pg Plt Count 66 L (140-440) X 10*3/uL Plt Count Comment DECREASED A Neutrophils # 1.68 L (1.80-7.70) X 10*3/uL Eosinophils # 0.02 L (0.04-0.35) X 10*3/uL Chloride 114 H (98-107) mmol/L BUN 18 H (7-17) mg/dL POC Glucose (mg/dL) 157 H (75-99) mg/dL Calcium 7.6 L (8.4-10.2) mg/dL Assessment and Plan Assessment: Toxic encephalopathy secondary to reported intentional overdose of Klonopin and Lexapro. Polysubstance abuse with Drug screen positive for amphetamines, methamphetamine, benzos ,THC. Sinus bradycardia secondary to the above Mild acute renal failure secondary to prerenal azotemia related to dehydration Mildly elevated troponins secondary to the above Depression Positive Covid-19, asymptomatic Nicotine dependence Plan: Continue on current medication regime ,monitoring and symptomatic treatment. IV fluid hydration .Maintain continuous telemetry monitoring, suicide precautions with water safety teacher. Currently denies being suicidal/homicidal-has no plan at this time. Echo completed, results pending.Discharge planning for a.m. to mental health unit .Prognosis guarded given multiple complex medical issues. The impression and plan of care has been dictated as directed. : I performed a history and examination of this patient, discussed the same with the dictator. I agree with the dictator's note ,documented as a scribe. Any additional findings or plans will be noted.
[2020-11-01] MEDS: ACETAMINOPHEN TAB 325 MG TAB PO PRN (19:48)
[2020-11-01] MEDS: MELATONIN 5 MG TABLET PO SCH (19:48)
[2020-11-01 20:29] LABS: Glucose,Whole Blood 111 mg/dL (75-99)
[2020-11-01] MEDS: IBUPROFEN 600 MG TAB PO PRN (22:06)
[2020-11-02 02:04] LABS: Glucose,Whole Blood 114 mg/dL (75-99)
[2020-11-02] MEDS: SODIUM CHLORIDE 0.9% 1,000 ML IV SCH ×3 (02:29→21:03)
[2020-11-02] MEDS: LEVOTHYROXINE 75 MCG TAB PO SCH (05:48)
[2020-11-02 07:23] LABS: Glucose,Whole Blood 109 mg/dL (75-99)
[2020-11-02] MEDS: CHOLECALCIFEROL 25 MCG (1000 IU) TABLET PO SCH (07:29)
[2020-11-02] MEDS: TOPIRAMATE 100 MG TAB PO SCH ×2 (07:29→21:09)
[2020-11-02] MEDS: PANTOPRAZOLE 40 MG TABLET PO SCH (07:29)
[2020-11-02] MEDS: DULoxetine HCL 30 MG CAPSULE.DR PO SCH (07:29)
[2020-11-02] MEDS: ASCORBIC ACID 500 MG TAB PO SCH ×2 (07:29→21:09)
[2020-11-02] MEDS: HEPARIN SODIUM,PORCINE/PF 5,000 UNIT/0.5 ML SYRINGE SQ SCH ×4 (07:29→21:13)
[2020-11-02] MEDS: NICOTINE 14MG/24HR PATCH TRANSDERM SCH ×2 (07:29→21:10)
[2020-11-02] MEDS: ZINC SULFATE 220 MG CAP PO SCH (07:29)
[2020-11-02] MEDS: SYMBICORT 80-4.5 MCG INHALER INHALATION SCH ×2 (09:14→20:22)
[2020-11-02] MEDS: ALBUTEROL HFA INHALER INHALATION PRN (09:14)
[2020-11-02 09:57] LABS: Amorphous Sediment,Urine Rare /hpf; Appearance,Urine Cloudy (Clear); Bacteria,Urine Many /hpf; Bilirubin,Urine Negative (Negative); Blood,Urine Negative (Negative); Color,Urine Light Yellow; Glucose,Urine (UA) Negative (Negative); Ketones,Urine Negative (Negative); Leukocyte Esterase,Urine Negative (Negative); Mucus,Urine Rare /hpf; Nitrite,Urine Negative (Negative); PH, Urine 7.5 (5.0-8.0); Protein,Urine Negative (Negative); RBC,Urine 1 /hpf (0-5); Specific Gravity,Urine 1.009 (1.001-1.035); Squamous Epithelial Cell,Urine 3 /hpf (0-4); Urobilinogen,Urine <2.0 mg/dL (<2.0); WBC,Urine 3 /hpf (0-5)
--- NOTE | 2020-11-02 10:07 | P.DS ---
<Shantelle Gould - Last Filed: 11/02/20 10:03> Providers Expected date of discharge: 11/02/20 Hospital Course: Final Diagnoses: Toxic encephalopathy secondary to reported intentional overdose of Klonopin and Lexapro. Polysubstance abuse with Drug screen positive for amphetamines, methamphetamine, benzos ,THC. Sinus bradycardia secondary to the above, resolved Mild acute renal failure secondary to prerenal azotemia related to dehydration Mildly elevated troponins secondary to the above Depression Positive Covid-19, asymptomatic Nicotine dependence Ruling out chlamydia, gonorrhea, labs pending Hospital course:This is a 40-year-old female admitted with drug overdose, suicidal and multiple other medical issues. More alert today, fatigued, reporting she recently became homeless, intentionally overdosed on Lexapro and Klonopin. Patient tested positive for coronavirus, asymptomatic. Denies cough, denies shortness of breath. Denies chest pain, palpitations or shortness of breath. Denies nausea, vomiting or diarrhea. Denies abdominal pain 11/01/2020, remains in suicide precautions with sitter at bedside. Denies chest pain, palpitations or shortness of breath. Hypotensive, blood pressures in the 80s, complains some mild "woozy" feelings. Remains on Cymbalta. Maintained on IV fluid hydration. Evaluated by psychiatry with recommendations noted and appreciated. Significant clinical improvement. Denies lightheadedness dizziness or focal deficits. Denies chest pain, palpitations or shortness of breath.Denies cough, denies sore throat . Reports positive sense of smell .Suicide precautions maintained.Patient will be discharged to inpatient mental health unit today as recommended per psychiatry. The impression and plan of care has been dictated as directed. : I performed a history and examination of this patient, discussed the same with the dictator. I agree with the dictator's note ,documented as a scribe. Any additional findings or plans will be noted. Patient Condition at Discharge: Stable Plan - Discharge Summary Discharge Rx Participant: No New Discharge Prescriptions: New DULoxetine HCL [Cymbalta] 30 mg PO DAILY capsule. Nicotine 14Mg/24Hr Patch [Habitrol] 1 patch TRANSDERM DAILY patch Melatonin 5 mg PO HS tablet Zinc Sulfate [Orazinc] 220 mg PO DAILY cap Pantoprazole [Protonix] 40 mg PO AC-BRKFST tablet. Ascorbic Acid [Vitamin C] 500 mg PO BID tab Cholecalciferol [Vitamin D3 (25 Mcg = 1000 Iu)] 50 mcg PO DAILY tablet Acetaminophen Tab [Tylenol] 650 mg PO Q4HR PRN tab PRN Reason: Fever And/ Or Pain Continue Topiramate [Topamax] 200 mg PO BID Albuterol Sulfate [Proventil Hfa] 1 puff INHALATION RT-Q4H PRN PRN Reason: Shortness Of Breath Bisacodyl 5 mg PO DAILY PRN PRN Reason: Constipation Fluticasone Propion/Salmeterol [Wixela 100-50 Inhub] 1 puff INHALATION RT-BID Levothyroxine Sodium [Synthroid] 75 mcg PO DAILY Discontinued cloNIDine HCL [Catapres] 0.2 mg PO HS QUEtiapine [SEROquel] 100 mg PO HS traZODone HCL 50 mg PO HS Cholecalciferol [Vitamin D3 (25 Mcg = 1000 Iu)] 25 mcg PO DAILY DULoxetine HCL [Cymbalta] 60 mg PO DAILY Gabapentin 600 mg PO BID QUEtiapine [SEROquel] 50 mg PO BID PRN PRN Reason: Agitation Vitamin B Complex 1 cap PO BID Discharge Medication List Albuterol Sulfate [Proventil Hfa] 1 puff INHALATION RT-Q4H PRN 10/29/20 [History] Bisacodyl 5 mg PO DAILY PRN 10/29/20 [History] Fluticasone Propion/Salmeterol [Wixela 100-50 Inhub] 1 puff INHALATION RT-BID 10/29/20 [History] Levothyroxine Sodium [Synthroid] 75 mcg PO DAILY 10/29/20 [History] Topiramate [Topamax] 200 mg PO BID 10/29/20 [History] Acetaminophen Tab [Tylenol] 650 mg PO Q4HR PRN tab 11/02/20 [Rx] Ascorbic Acid [Vitamin C] 500 mg PO BID tab 11/02/20 [Rx] Cholecalciferol [Vitamin D3 (25 Mcg = 1000 Iu)] 50 mcg PO DAILY tablet 11/02/20 [Rx] DULoxetine HCL [Cymbalta] 30 mg PO DAILY capsule. 11/02/20 [Rx] Melatonin 5 mg PO HS tablet 11/02/20 [Rx] Nicotine 14Mg/24Hr Patch [Habitrol] 1 patch TRANSDERM DAILY patch 11/02/20 [Rx] Pantoprazole [Protonix] 40 mg PO AC-BRKFST tablet. 11/02/20 [Rx] Zinc Sulfate [Orazinc] 220 mg PO DAILY cap 11/02/20 [Rx] Follow up Appointment(s)/Referral(s): Saqib Gutierrez MD [Medical Doctor] - 1-2 Days Dewayne George MD [Primary Care Provider] - 1 Week (After DC from [facility]) Activity/Diet/Wound Care/Special Instructions: Discharged to mental health unit Discharge Disposition: TRANSFER TO PSYCH HOSP/UNIT <Dewayne George - Last Filed: 11/02/20 15:17> Providers Date of admission: 10/29/20 14:14 Attending physician: Dewayne George MD Consults: 10/31/20 09:20 Consult Physician Routine Consulting Provider: Saqib Gutierrez Consult Reason/Comments: suicidal, OD Do you want consulting provider notified?: Yes Primary care physician: Dewayne George MD Hospital Course: Her repeat COVID test is negative and she is stable for transfer to MHU without quarantine. She is not considered contagious.
--- NOTE | 2020-11-02 11:02 | ECHOF ---
Referral Reason:LV fx MEASUREMENTS -------- HEIGHT: 172.7 cm WEIGHT: 54.4 kg BP: 88/52 RVIDd: 3.0 cm (< 3.3) IVSd: 1.0 cm (0.6 - 1.1) LVIDd: 3.6 cm (3.9 - 5.3) LVPWd: 1.1 cm (0.6 - 1.1) IVSs: 1.2 cm LVIDs: 2.7 cm LVPWs: 1.4 cm LAESV Index (A-L): 22.18 ml/m Ao Diam: 2.6 cm (2.0 - 3.7) AV Cusp: 1.4 cm (1.5 - 2.6) LA Diam: 2.4 cm (2.7 - 3.8) MV EXCURSION: 17.658 mm (> 18.000) MV EF SLOPE: 63 mm/s (70 - 150) EPSS: 0.2 cm MV E Beau: 1.07 m/s MV DecT: 187 ms MV A Beau: 0.57 m/s MV E/A Ratio: 1.88 RAP: 5.00 mmHg RVSP: 22.46 mmHg FINDINGS -------- Resting bradycardia (HR<60bpm). This was a technically adequate study. The left ventricular size is normal. There is borderline concentric left ventricular hypertrophy. Overall left ventricular systolic function is low-normal with, an EF between 50 - 55 %. The diasto lic filling pattern is normal for the age of the patient 11.03. The right ventricle is normal in size. Normal LA size by volume 22+/-6 ml/m2. The right atrial size is normal. Interatrial and interventricular septum intact. The aortic valve is trileaflet and appears structurally normal. There is no evidence of aortic regu rgitation. There is no evidence of aortic stenosis. There is trace mitral regurgitation. Mild tricuspid regurgitation present. There is no evidence of pulmonary hypertension. The right v entricular systolic pressure, as measured by Doppler, is 22.46mmHg. There is no pulmonic regurgitation present. The aortic root size is normal. Normal inferior vena cava with normal inspiratory collapse consistent with estimated right atrial pre ssure of 5 mmHg. There is no pericardial effusion. CONCLUSIONS -------- 1. The left ventricular size is normal. 2. There is borderline concentric left ventricular hypertrophy. 3. Overall left ventricular systolic function is low-normal with, an EF between 50 - 55 %. 4. The diastolic filling pattern is normal for the age of the patient 11.03 5. There is trace mitral regurgitation. 6. Mild tricuspid regurgitation present. [facility] SPECIALIST: Adia Terry RDCS
[2020-11-02 11:24] LABS: Glucose,Whole Blood 105 mg/dL (75-99)
[2020-11-02 16:36] LABS: Glucose,Whole Blood 88 mg/dL (75-99)
[2020-11-02] MEDS: GABAPENTIN 300 MG CAP PO SCH (21:09)
[2020-11-02] MEDS: IBUPROFEN 600 MG TAB PO PRN (21:10)
[2020-11-02] MEDS: MELATONIN 5 MG TABLET PO SCH (21:10)
[2020-11-03] MEDS: SODIUM CHLORIDE 0.9% 1,000 ML IV SCH ×2 (05:45→20:13)
[2020-11-03] MEDS: LEVOTHYROXINE 75 MCG TAB PO SCH (06:13)
[2020-11-03] MEDS: IBUPROFEN 600 MG TAB PO PRN ×2 (06:25→21:19)
[2020-11-03] MEDS: SYMBICORT 80-4.5 MCG INHALER INHALATION SCH ×2 (08:00→20:54)
[2020-11-03] MEDS: GABAPENTIN 300 MG CAP PO SCH ×2 (09:15→21:15)
[2020-11-03] MEDS: TOPIRAMATE 100 MG TAB PO SCH ×2 (09:15→21:15)
[2020-11-03] MEDS: DULoxetine HCL 30 MG CAPSULE.DR PO SCH (09:16)
[2020-11-03] MEDS: HEPARIN SODIUM,PORCINE/PF 5,000 UNIT/0.5 ML SYRINGE SQ SCH ×3 (09:16→21:59)
[2020-11-03] MEDS: CHOLECALCIFEROL 25 MCG (1000 IU) TABLET PO SCH (09:16)
[2020-11-03] MEDS: PANTOPRAZOLE 40 MG TABLET PO SCH (09:16)
[2020-11-03] MEDS: ZINC SULFATE 220 MG CAP PO SCH (09:16)
[2020-11-03] MEDS: ASCORBIC ACID 500 MG TAB PO SCH ×2 (09:16→21:15)
--- NOTE | 2020-11-03 15:49 | XR ---
EXAMINATION TYPE: XR chest 1V portable DATE OF EXAM: 11/03/2020 COMPARISON: NONE HISTORY: Short of breath TECHNIQUE: Single view FINDINGS: Heart and mediastinum are normal. Lungs are clear. Diaphragm is normal. Bony thorax is inta ct. IMPRESSION: Normal chest. Normal heart.
--- NOTE | 2020-11-03 15:55 | PN ---
PROGRESS NOTE DATE OF SERVICE: 11/03/2020 I am covering for Dr. George. This 40-year-old woman was admitted with overdose, is being scheduled to go to inpatient psych at this time but currently the COVID-19 test was positive on 10/29/2020. The initial test was positive the and patient had multiple contacts apparently COVID-19 positive also . The COVID-19 test was done yesterday, was found to be negative. No chest pain. No palpitations. No fever. No shortness of breath. No cough. PHYSICAL EXAMINATION: Alert and oriented x3. Pulse 76, blood pressure 111/75, respiration 18, temperature 98.4, pulse ox 97% on room air. HEENT: Conjunctivae normal. Oral mucosa moist. NECK: No jugular venous distention. No lymph node enlargement. CARDIOVASCULAR: S1, S2, muffled. No S3, no S4, RESPIRATORY: Diminished breath sounds at the bases. No rhonchi, no crackles. ABDOMEN: Soft. NERVOUS SYSTEM: No focal deficits. LABS: WBC 2.8, hemoglobin 11.8, platelets 66. Sodium 130, potassium 4.1. ASSESSMENT: 1. Status post overdose and acute metabolic toxic encephalopathy, status post overdose of Klonopin and Lexapro. 2. Polysubstance abuse with drug screen positive for amphetamine, methamphetamine and THC. 3. Sinus tachycardia. 4. Mild acute renal failure with prerenal azotemia and dehydration. 5. Mild elevated troponin secondary to above. 6. Depression. 7. COVID-19 positive, asymptomatic, currently test negative. 8. History of nicotine dependence. 9. Chlamydia and gonorrhea pending. RECOMMENDATIONS: In this 40-year-old woman who presented with multiple complex medical issues, at this time I recommend to continue current management and symptomatic treatment. As mentioned earlier, most recent COVID-19 is negative. At this time ( ) Psychiatry according to the followup protocol. Otherwise, I would recommend continue the current medications. DVT prophylaxis. I would also recommend repeat labs. Further recommendations to follow. MMODL / IJN: [id number] /
--- NOTE | 2020-11-03 16:24 | P.PN ---
Progress Note - Text Progress Note Date: 11/03/20 I met with this patient today on the medical floor. She was admitted to Hospital because of a massive overdose of medication. Her psychiatric consult was done and she was recommended to be on psychiatric unit. She has already been petitioned. Patient is insisting that she leaves the hospital. Patient had a positive for COVID-19 test on October 29 and she has to be in quarantine for 10 days. I tried explaining her however she is not willing to listen. This patient continues to have same risk factors that brought her to the hospital. My recommendation is that she should not to be discharged home and that she needs to be transferred to psychiatric unit. Patient threatened me that she p ersonally knows acute care physician Chevy and will talk to him personally herself.
[2020-11-03] MEDS ORDERED: HALOPERIDOL LACTATE 5 MG/ML 1 ML VIAL IM PRN (18:36)
[2020-11-03] MEDS ORDERED: LORazepam 2 MG/ML INJ IM PRN (18:42)
[2020-11-03] MEDS: LORazepam 1 MG TAB PO PRN (21:15)
[2020-11-03] MEDS: MELATONIN 5 MG TABLET PO SCH (21:15)
[2020-11-03] MEDS: NICOTINE 14MG/24HR PATCH TRANSDERM SCH (21:19)
[2020-11-04] MEDS: PANTOPRAZOLE 40 MG TABLET PO SCH (06:17)
[2020-11-04] MEDS: LEVOTHYROXINE 75 MCG TAB PO SCH (06:17)
[2020-11-04] MEDS: IBUPROFEN 600 MG TAB PO PRN ×2 (06:17→21:29)
[2020-11-04] MEDS: TOPIRAMATE 100 MG TAB PO SCH ×2 (07:28→21:30)
[2020-11-04] MEDS: ZINC SULFATE 220 MG CAP PO SCH (07:28)
[2020-11-04] MEDS: ASCORBIC ACID 500 MG TAB PO SCH ×2 (07:28→21:29)
[2020-11-04] MEDS: GABAPENTIN 300 MG CAP PO SCH ×2 (07:29→21:30)
[2020-11-04] MEDS: HEPARIN SODIUM,PORCINE/PF 5,000 UNIT/0.5 ML SYRINGE SQ SCH ×3 (07:29→22:29)
[2020-11-04] MEDS: CHOLECALCIFEROL 25 MCG (1000 IU) TABLET PO SCH (07:29)
[2020-11-04] MEDS: DULoxetine HCL 30 MG CAPSULE.DR PO SCH (07:29)
[2020-11-04] MEDS: ACETAMINOPHEN TAB 325 MG TAB PO PRN (07:35)
[2020-11-04] MEDS: SYMBICORT 80-4.5 MCG INHALER INHALATION SCH ×2 (08:30→21:08)
--- NOTE | 2020-11-04 11:59 | P.PN ---
Progress Note - Text Progress Note Date: 11/04/20 This patient was a again seen in her room today. This patient came to Hospital with a massive overdose of Klonopin and Lexapro. She does have severe symptoms of PTSD. She was in a usp in [place] for possession of cocaine and was incarcerated for 5 years. She has no insight into her problems. A petition was filed and a clinical certification was completed. She will be transferred to psychiatric unit whenever she is medically cleared. I have ordered Haldol and Ativan on a when necessary basis for agitation in the meantime.
[2020-11-04] MEDS: LORazepam 1 MG TAB PO PRN (12:33)
[2020-11-04 12:42] LABS: African American GFR (CKD) 80.5 (60.0-200.0); Anion Gap 5.6 mmol/L (4.00-12.00); Calcium 8.3 mg/dL (8.7-10.3); Carbon Dioxide 22.4 mmol/L (21.6-31.8); Non-African American GFR(CKD) 69.4 (60.0-200.0); Potassium 3.9 mmol/L (3.5-5.5)
[2020-11-04 13:31] LABS: Basophils # (A) 0.01 X 10*3/uL (0.00-0.10); Basophils % (A) 0.2 %; Eosinophils % (A) 2.4 %; HCT 40.3 % (37.2-46.3); HGB 12.8 g/dL (12.0-15.0); Lymphocytes # (A) 1.79 X 10*3/uL (0.90-5.00); Lymphocytes % (A) 42.1 %; MCH 32.5 pg (27.0-32.0); MCHC 31.8 g/dL (32.0-37.0); MCV 102.3 fL (80.0-97.0); Mean Platelet Volume 11.9 fL (9.5-12.2); Monocytes # (A) 0.36 X 10*3/uL (0.20-1.00); Monocytes % (A) 8.5 %; Neutrophils # (A) 1.99 X 10*3/uL (1.80-7.70); Neutrophils % (A) 46.8 %; Platelet Count 91 X 10*3/uL (140-440); RBC 3.94 X 10*6/uL (4.10-5.20); RDW 13.3 % (11.5-14.5); WBC 4.25 X 10*3/uL (4.50-10.00)
[2020-11-04] MEDS ORDERED: FLUCONAZOLE 150 MG TAB PO STA (14:18)
--- NOTE | 2020-11-04 18:49 | PN ---
PROGRESS NOTE DATE OF SERVICE: 11/04/2020 I am covering for Dr. George. This 40-year-old woman who was admitted after overdose and acute metabolic encephalopathy, also had COVID-19 testing positive on October 29. Apparently sick at least 10 days of quarantine. No chest pain. No palpitations. No fever. PHYSICAL EXAMINATION: Alert and oriented times three. Pulse 96, blood pressure 115/76, respiration 18, temperature 98.2, pulse ox 98 percent on room air. HEENT: Conjunctivae normal. NECK: No JVD. CARDIOVASCULAR: S1, S2. RESPIRATORY: Breath sounds diminished in the bases. No rhonchi. No crackles. ABDOMEN: Soft. Nervous system: No focal deficits. LABS: WBC 2.9, hemoglobin 7.8. The chest x-ray is normal. ASSESSMENT: 1. Acute metabolic toxic encephalopathy, status post overdose of Klonopin, Lexapro. 2. Polysubstance abuse with drug screen positive for amphetamine, methamphetamine and THC. 3. Sinus tachycardia. 4. Mild acute renal failure with prerenal azotemia and dehydration. 5. Mild elevated troponin secondary to above. 6. Depression. 7. Covid 19 positive, asymptomatic, currently test negative. 8. History of nicotine dependence. 9. Chlamydia gonorrhea testing pending. RECOMMENDATIONS AND DISCUSSION: Recommend to continue current medications, management and symptomatic treatment. Otherwise closely monitor. Once the psych accepts the patient, transfer the patient to psych floor for further treatment. Further recommendations to follow. MMODL / IJN: [id number] /
[2020-11-04] MEDS: NICOTINE 14MG/24HR PATCH TRANSDERM SCH (21:29)
[2020-11-04] MEDS: MELATONIN 5 MG TABLET PO SCH (21:30)
[2020-11-05] MEDS: LEVOTHYROXINE 75 MCG TAB PO SCH (07:31)
[2020-11-05] MEDS: ASCORBIC ACID 500 MG TAB PO SCH ×2 (07:31→20:41)
[2020-11-05] MEDS: ZINC SULFATE 220 MG CAP PO SCH (07:31)
[2020-11-05] MEDS: CHOLECALCIFEROL 25 MCG (1000 IU) TABLET PO SCH (07:32)
[2020-11-05] MEDS: PANTOPRAZOLE 40 MG TABLET PO SCH (07:32)
[2020-11-05] MEDS: TOPIRAMATE 100 MG TAB PO SCH ×2 (07:32→20:41)
[2020-11-05] MEDS: HEPARIN SODIUM,PORCINE/PF 5,000 UNIT/0.5 ML SYRINGE SQ SCH ×3 (07:32→22:31)
[2020-11-05] MEDS: GABAPENTIN 300 MG CAP PO SCH ×2 (07:32→22:31)
[2020-11-05] MEDS ORDERED: DULoxetine HCL 60 MG CAPSULE.DR PO SCH (09:00)
[2020-11-05] MEDS: SYMBICORT 80-4.5 MCG INHALER INHALATION SCH ×2 (09:43→20:53)
[2020-11-05] MEDS: LORATADINE 10 MG TAB PO SCH (13:00)
--- NOTE | 2020-11-05 13:52 | P.PN ---
Subjective Progress Note Date: 11/05/20 This is a 40-year-old female admitted with drug overdose, suicidal and multiple other medical issues. More alert today, fatigued, reporting she recently became homeless, intentionally overdosed on Lexapro and Klonopin. Patient tested positive for coronavirus, asymptomatic. Denies cough, denies shortness of breath. Denies chest pain, palpitations or shortness of breath. Denies nausea, vomiting or diarrhea. Denies abdominal pain 11/01/2020, remains in suicide precautions with sitter at bedside. Denies chest pain, palpitations or shortness of breath. Hypotensive, blood pressures in the 80s, complains some mild "woozy" feelings. Remains on Cymbalta. Maintained on IV fluid hydration. Evaluated by psychiatry with recommendations noted and appreciated. 11/15/2020 repeat covid test negative, asymptomatic. Denies chest pain, palpitations or shortness of breath. Complains of some mild right ear pressure. VSS, afebrile. Agitated. Suicide precautions maintained .Petitioned by psychiatry, completing quarantine with discharge planning in progress for Thursday. Objective - Vital Signs Vital signs: Vital Signs Temp 98.2 F 11/05/20 07:15 Pulse 76 11/05/20 07:15 Resp 16 11/05/20 07:40 BP 101/65 11/05/20 07:15 Pulse Ox 99 11/05/20 07:15 Intake & Output 11/04/20 11/05/20 11/05/20 18:59 06:59 18:59 Other: Voiding Method Indwelling Catheter Toilet # Voids 2 2 - Exam - Exam General: well nourished, alert and oriented 3 , no acute distress, agitated Lungs: normal respiratory effort, no wheezes or rales CV: Regular rate and rhythm, no murmur. Peripheral pulses 2+ Abdomen: soft, nondistended, no organomegaly Skin: warm and dry. - Labs CBC & Chem 7: 11/04/20 06:14 11/04/20 06:14 Labs: Abnormal Lab Results - Last 24 Hours (Table) 11/04/20 Range/Units 06:14 WBC 4.25 L (4.50-10.00) X 10*3/uL RBC 3.94 L (4.10-5.20) X 10*6/uL MCV 102.3 H (80.0-97.0) fL MCH 32.5 H (27.0-32.0) pg MCHC 31.8 L (32.0-37.0) g/dL Plt Count 91 L (140-440) X 10*3/uL Assessment and Plan Assessment: Acute Toxic, metabolic encephalopathy secondary to reported intentional overdose of Klonopin and Lexapro. Polysubstance abuse with Drug screen positive for amphetamines, methamphetamine, benzos ,THC. Sinus bradycardia secondary to the above, resolved. Mild acute renal failure secondary to prerenal azotemia related to dehydration, resolved Mildly elevated troponins secondary to the above Depression Positive Covid-19, asymptomatic, repeat COVID test negative. Nicotine dependence Chlamydia, gonorrhea testing pending. Plan: Continue on current medication regime ,monitoring and symptomatic treatment. Maintain suicide precautions with manager environmental health and safety. Zyrtec added to med regime. Patient is medically cleared for discharge to mental health unit .Discharge delayed till Thursday, pending completion of quarantine, to mental health unit .Prognosis guarded given multiple complex medical issues. The impression and plan of care has been dictated as directed. : I performed a history and examination of this patient, discussed the same with the dictator. I agree with the dictator's note ,documented as a scribe. Any additional findings or plans will be noted.
[2020-11-05 14:29] LABS: C. trachomatis,PCR Negative (Neg,Equiv); Chlamydia trachomatis Source Urine; N. gonorrhoeae,PCR Negative (Neg,Equiv); Neisseria Source Urine
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
[2020-11-05] MEDS: LORazepam 1 MG TAB PO PRN (18:24)
[2020-11-05] MEDS: MELATONIN 5 MG TABLET PO SCH (20:41)
[2020-11-05] MEDS: IBUPROFEN 600 MG TAB PO PRN (20:41)
[2020-11-05] MEDS: NICOTINE 14MG/24HR PATCH TRANSDERM SCH (20:43)
[2020-11-05] MEDS ORDERED: QUEtiapine 50 MG TAB PO ONE (22:00)
[2020-11-06] MEDS: LEVOTHYROXINE 75 MCG TAB PO SCH (06:24)
[2020-11-06] MEDS ORDERED: DULoxetine HCL 30 MG CAPSULE.DR PO SCH (09:00)
[2020-11-06] MEDS: SYMBICORT 80-4.5 MCG INHALER INHALATION SCH (09:11)
[2020-11-06] MEDS: CHOLECALCIFEROL 25 MCG (1000 IU) TABLET PO SCH (09:16)
[2020-11-06] MEDS: ZINC SULFATE 220 MG CAP PO SCH (09:16)
[2020-11-06] MEDS: TOPIRAMATE 100 MG TAB PO SCH (09:16)
[2020-11-06] MEDS: PANTOPRAZOLE 40 MG TABLET PO SCH (09:16)
[2020-11-06] MEDS: LORATADINE 10 MG TAB PO SCH (09:16)
[2020-11-06] MEDS: GABAPENTIN 300 MG CAP PO SCH (09:16)
[2020-11-06] MEDS: ASCORBIC ACID 500 MG TAB PO SCH (09:16)
[2020-11-06] MEDS: HEPARIN SODIUM,PORCINE/PF 5,000 UNIT/0.5 ML SYRINGE SQ SCH ×2 (09:18→15:18)
--- NOTE | 2020-11-06 14:35 | P.PN ---
Progress Note - Text Progress Note Date: 11/06/20 Interval History: Patient was seen resting in bed and was directable and agreeable to speak with song writer in her room. The patient is currently on one-to-one supervision. She is currently not reporting any suicidal or homicidal ideation, intention, and/or plan. She expresses regret for her overdose. She expressed that she does want to follow-up with an outpatient provider for management of her mental health. The patient is not reporting any issues with sleep or appetite. She is not reporting any racing thoughts, impulsivity, or mood swings. She does express that she is just "bored throughout the day." She does express future orientation and is excited to go home. She denies any access to firearms or other weapons. She has been Peggy the medications and is not reporting any significant side effects at this time. Patient was counseled at length on avoiding all substances including alcohol, marijuana, and methamphetamines. The patient was also informed to get her and with her medications and follow-up with outpatient appointments. Mental Status Exam: General Appearance: Patient appears to be stated age is alert, directable, and cooperative. Patient appears older than stated age. Dressed in a hospital gown. Behavior: Patient is calmly seated without any agitated behavior. Eye contact is appropriate. Speech: Patient's speech is fluent and nonpressured. Mood/Affect: Mood is Feeling okay, affect is Euthymic to bright. Suicidality/Homicidality: Patient denies having any suicidal or homicidal ideation intent or plan. Perceptions: Patient denies any visual hallucinations [and denies any auditory hallucinations Though content/process: There is no evidence of any delusional thought content and thought process is linear and goal-directed. Memory and concentration: AOX3, grossly intact for the purposes of this session Judgment and insight: Fair Vital Signs Temp 98.4 F 11/06/20 08:00 Pulse 66 11/06/20 08:00 Resp 16 11/06/20 08:00 BP 95/58 11/06/20 08:00 Pulse Ox 99 11/06/20 08:00 Intake & Output 11/05/20 11/06/20 11/06/20 18:59 06:59 18:59 Output Total 3 Balance -3 Weight 54.431 kg Output: Urine 3 Other: Voiding Method Toilet Toilet # Voids 1 2 # Bowel Movements 0 0 Assessment Depressive disorder unspecified, rule out adjustment disorder vs. major depressive disorder Methamphetamine abuse Cannabis use disorder Nicotine dependence. Plan: -At this time patient does NOT meet criteria for inpatient psychiatric hospitalization -Delirium precautions recommended with patient including - avoiding use of narcotics and [employer]ICER sedatives, limit anticholinergic medications when possible, frequent re-orientation, minimize use of restraints, open window shades during the day and close them at night -Would recommend the following medication changes/additions: Continue cymbalta 30 mg by mouth daily and 60 mg at bedtime for management of depression Continue melatonin for insomnia -Discontinue one-to-one sitter -Recommend social work to set up aftercare appointments for counseling / psychiatric follow-up. Patient is cleared psychiatrically for discharge.
[2020-11-06 15:36] VITALS: BP 102/63; PULSE 86; RESP 18; TEMP 98.2
[2020-11-06] MEDS ORDERED: DULoxetine HCL 60 MG CAPSULE.DR PO SCH (21:00)
--- NOTE | 2020-11-07 18:04 | P.DS ---
Providers Date of admission: 10/29/20 14:14 Expected date of discharge: 11/06/20 Attending physician: Dewayne George MD Consults: 10/31/20 09:20 Consult Physician Routine Consulting Provider: aSqib Gutierrez Consult Reason/Comments: suicidal, OD Do you want consulting provider notified?: Yes 11/02/20 16:58 Consult Physician Routine Consulting Provider: Saqib Gutierrez Consult Reason/Comments: suicidal patient. known to psych. awaiting bed on mental health. Do you want consulting provider notified?: Already Contacted Primary care physician: Dewayne George MD Hospital Course: Patient cleared for discharge by psychiatry and left AMA before discharge could be completed. The impression and plan of care has been dictated as directed. : I performed a history and examination of this patient, discussed the same with the dictator. I agree with the dictator's note ,documented as a scribe. Any additional findings or plans will be noted. Patient Condition at Discharge: Stable Plan - Discharge Summary Discharge Rx Participant: No New Discharge Prescriptions: New DULoxetine HCL [Cymbalta] 30 mg PO DAILY capsule. Nicotine 14Mg/24Hr Patch [Habitrol] 1 patch TRANSDERM DAILY patch Melatonin 5 mg PO HS tablet Zinc Sulfate [Orazinc] 220 mg PO DAILY cap Pantoprazole [Protonix] 40 mg PO AC-BRKFST tablet. Ascorbic Acid [Vitamin C] 500 mg PO BID tab Cholecalciferol [Vitamin D3 (25 Mcg = 1000 Iu)] 50 mcg PO DAILY tablet Loratadine [Claritin] 10 mg PO DAILY tab Acetaminophen Tab [Tylenol] 650 mg PO Q4HR PRN tab PRN Reason: Fever And/ Or Pain DULoxetine HCL [Cymbalta] 30 mg PO DAILY #5 capsule. DULoxetine HCL [Cymbalta] 60 mg PO HS #5 capsule. Continue Topiramate [Topamax] 200 mg PO BID Albuterol Sulfate [Proventil Hfa] 1 puff INHALATION RT-Q4H PRN PRN Reason: Shortness Of Breath Bisacodyl 5 mg PO DAILY PRN PRN Reason: Constipation Fluticasone Propion/Salmeterol [Wixela 100-50 Inhub] 1 puff INHALATION RT-BID Levothyroxine Sodium [Synthroid] 75 mcg PO DAILY Discontinued cloNIDine HCL [Catapres] 0.2 mg PO HS QUEtiapine [SEROquel] 100 mg PO HS traZODone HCL 50 mg PO HS Cholecalciferol [Vitamin D3 (25 Mcg = 1000 Iu)] 25 mcg PO DAILY DULoxetine HCL [Cymbalta] 60 mg PO DAILY Gabapentin 600 mg PO BID QUEtiapine [SEROquel] 50 mg PO BID PRN PRN Reason: Agitation Vitamin B Complex 1 cap PO BID Discharge Medication List Albuterol Sulfate [Proventil Hfa] 1 puff INHALATION RT-Q4H PRN 10/29/20 [History] Bisacodyl 5 mg PO DAILY PRN 10/29/20 [History] Fluticasone Propion/Salmeterol [Wixela 100-50 Inhub] 1 puff INHALATION RT-BID 10/29/20 [History] Levothyroxine Sodium [Synthroid] 75 mcg PO DAILY 10/29/20 [History] Topiramate [Topamax] 200 mg PO BID 10/29/20 [History] Acetaminophen Tab [Tylenol] 650 mg PO Q4HR PRN tab 11/02/20 [Rx] Ascorbic Acid [Vitamin C] 500 mg PO BID tab 11/02/20 [Rx] Cholecalciferol [Vitamin D3 (25 Mcg = 1000 Iu)] 50 mcg PO DAILY tablet 11/02/20 [Rx] DULoxetine HCL [Cymbalta] 30 mg PO DAILY capsule. 11/02/20 [Rx] Melatonin 5 mg PO HS tablet 11/02/20 [Rx] Nicotine 14Mg/24Hr Patch [Habitrol] 1 patch TRANSDERM DAILY patch 11/02/20 [Rx] Pantoprazole [Protonix] 40 mg PO AC-BRKFST tablet. 11/02/20 [Rx] Zinc Sulfate [Orazinc] 220 mg PO DAILY cap 11/02/20 [Rx] DULoxetine HCL [Cymbalta] 30 mg PO DAILY #5 capsule. 11/06/20 [Rx] DULoxetine HCL [Cymbalta] 60 mg PO HS #5 capsule. 11/06/20 [Rx] Loratadine [Claritin] 10 mg PO DAILY tab 11/06/20 [Rx] Follow up Appointment(s)/Referral(s): [facility], Psychiatry [Other] - 1 Week Dewayne George MD [Primary Care Provider] - 1 Week (After DC from MHU) Activity/Diet/Wound Care/Special Instructions: Patient was cleared by psychiatry for discharge. Before discharge could be completed, patient left AMA. Discharge Disposition: Left Against Medical Advice
== END 2020-11-06 15:55 | disposition left against medical advice (07) | DRG 917 ==
LOC: SUPCPDRO 11:16 → EC 11:16 → 2SICU 14:14 → 3SCARD 10-30 02:41 → 4SSUR 10-31 18:14
PROVIDERS: ADMIT Family Medicine; ATTEND Family Medicine
DX: T42.4X2A Poisoning by benzodiazepines, intentional self-harm, initial encounter (principal); G92 Toxic encephalopathy; N17.9 Acute kidney failure, unspecified; Z20.822 Contact with and (suspected) exposure to COVID-19; F32.9 Major depressive disorder, single episode, unspecified; F17.210 Nicotine dependence, cigarettes, uncomplicated; F15.10 Other stimulant abuse, uncomplicated; E86.0 Dehydration; F12.10 Cannabis abuse, uncomplicated; Z59.0 Homelessness; Z79.890 Hormone replacement therapy; Z79.899 Other long term (current) drug therapy; R00.1 Bradycardia, unspecified; R77.8 Other specified abnormalities of plasma proteins
CPT/HCPCS: 36415; 70450; 71045; 72125; 80048; 80053; 80143; 80179; 80201; 80306; 80320; 81001; 81025; 82550; 83605; 83690; 83735; 83930; 84443; 84484; 85025; 87491; 87591; 87635; 93005; 93306; 94640; 94760; 96361; 96374; 99291

== ENCOUNTER 2020-12-14 16:54 | Emergency (ER) | payer OTHER ==
[2020-12-14] MEDS ORDERED: ACET/COD 300 MG/30 MG STARTER PACK 6 TAB BTL PO STA (17:21)
[2020-12-14] MEDS ORDERED: DIPH,PERTUS(ACELL)TETVAC-LF 0.5 ML VIAL IM ONE (17:21)
[2020-12-14] MEDS ORDERED: LIDOCAINE 1% INJ 10MG/ML (20 ML MDV) SQ ONE (17:22)
[2020-12-14] MEDS ORDERED: BACITRACIN OINT 1 EACH PACKET TOPICAL ONE (17:22)
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
[2020-12-14 18:37] VITALS: RESP 18
[2020-12-14 19:46] VITALS: BP 118/67; PULSE 86; TEMP 98.4
== END 2020-12-14 19:41 | disposition home or self-care (01) ==
LOC: EC 16:54
DX: S01.112A Laceration without foreign body of left eyelid and periocular area, initial encounter (principal); S00.83XA Contusion of other part of head, initial encounter; S50.11XA Contusion of right forearm, initial encounter; S80.01XA Contusion of right knee, initial encounter; S10.91XA Abrasion of unspecified part of neck, initial encounter; S40.211A Abrasion of right shoulder, initial encounter; S20.412A Abrasion of left back wall of thorax, initial encounter; F17.200 Nicotine dependence, unspecified, uncomplicated; G40.909 Epilepsy, unspecified, not intractable, without status epilepticus; E03.9 Hypothyroidism, unspecified; Z86.16 Personal history of COVID-19; Z88.6 Allergy status to analgesic agent; Z88.0 Allergy status to penicillin; Z79.890 Hormone replacement therapy; Z79.899 Other long term (current) drug therapy; Y00.XXXA Assault by blunt object, initial encounter
CPT/HCPCS: 99284; 73090; 72125; 70486; 70450; J2001; 90471

== ENCOUNTER 2021-04-29 15:22 | Inpatient (IN) | payer OTHER ==
[2021-04-29] MEDS ORDERED: NALOXONE 0.4 MG/ML 1 ML VIAL IVP STA (15:43)
[2021-04-29 15:53] LABS: Glucose,Whole Blood 245 mg/dL (75-99)
[2021-04-29] MEDS ORDERED: ATROPINE SULFATE 0.1 MG/ML 10ML SYRINGE IV STA (16:06)
[2021-04-29] MEDS ORDERED: SUCCINYLCHOLINE CHLORIDE VIAL 200 MG/10 ML VIAL IV STA (16:10)
[2021-04-29] MEDS ORDERED: SODIUM CHLORIDE 0.9% 1,000 ML IV STA (16:18)
[2021-04-29] MEDS ORDERED: PROPOFOL 10 MG/ML 20 ML VIAL IV ONE (16:25)
[2021-04-29 16:42] LABS: Basophils % (A) 0 %; Eosinophils # (A) 0.1 k/uL (0-0.7); Eosinophils % (A) 2 %; HCT 52.7 % (34.0-46.0); HGB 17.9 gm/dL (11.4-16.0); Lymphocytes # (A) 1.4 k/uL (1.0-4.8); Lymphocytes % (A) 41 %; MCHC 33.9 g/dL (31.0-37.0); MCV 100.3 fL (80.0-100.0); Monocytes # (A) 0.1 k/uL (0-1.0); Monocytes % (A) 4 %; Neutrophils # (A) 1.8 k/uL (1.3-7.7); Neutrophils % (A) 51 %; Platelet Count 88 k/uL (150-450); RBC 5.25 m/uL (3.80-5.40); RDW 12.5 % (11.5-15.5); WBC 3.5 k/uL (3.8-10.6)
[2021-04-29 16:48] LABS: Partial Thromboplastin Time 27.7 sec (22.0-30.0); Prothrombin Time 10.7 sec (9.0-12.0)
[2021-04-29 16:50] LABS: ALT 12 U/L (4-34); AST 19 U/L (14-36); Acetaminophen <10.0 ug/mL; African American GFR (CKD) 84 (>60 ml/min/1.73 sqM); Albumin 3.6 g/dL (3.5-5.0); Alcohol <10 mg/dL; Alkaline Phosphatase 39 U/L (38-126); Anion Gap 8 mmol/L; Blood Urea Nitrogen 16 mg/dL (7-17); Calcium 8.6 mg/dL (8.4-10.2); Carbon Dioxide 21 mmol/L (22-30); Chloride 104 mmol/L (98-107); Creatine Kinase 36 U/L (30-135); Glucose 262 mg/dL (74-99); Lipase 116 U/L (23-300); Non-African American GFR(CKD) 73 (>60 ml/min/1.73 sqM); Salicylate <1.0 mg/dL; Sodium 133 mmol/L (137-145); Total Bilirubin 0.5 mg/dL (0.2-1.3); Total Protein 6.6 g/dL (6.3-8.2)
[2021-04-29 16:52] LABS: Potassium 3.9 mmol/L (3.5-5.1)
[2021-04-29 16:54] LABS: ABG Base Excess -2.3 mmol/L; ABG HCO3 24 mmol/L (21-25); ABG PCO2 44 mmHg (35-45); ABG PH 7.34 (7.35-7.45); ABG PO2 >400 mmHg (83-108); ABG TCO2 25 mmol/L (19-24); Allen Test Performed? Yes
--- NOTE | 2021-04-29 17:11 | XR ---
EXAMINATION TYPE: XR chest 1V portable DATE OF EXAM: 04/29/2021 COMPARISON: Radiographs 11/03/2020 HISTORY: Intubation TECHNIQUE: Single frontal view of the chest is obtained. FINDINGS: Endotracheal tube tip approximately 8 mm above the mendel. Gastric tube coursing below the diaphragm with the sidehole above the level of the gastroesophageal junction and the distal tip not i francisco. The mediastinal silhouette and pulmonary vasculature are within normal limits. And the opacities at t he right base. No large effusion or pneumothorax. IMPRESSION: 1. Right basilar airspace disease/atelectasis. 2. Lines and tubes as above. Recommend retraction of the endotracheal tube by 2 cm and advancement of gastric tube by 5cm.
[2021-04-29 17:19] LABS: Appearance,Urine Clear (Clear); Bacteria,Urine Moderate /hpf; Bilirubin,Urine Negative (Negative); Blood,Urine Negative (Negative); Color,Urine Yellow; Glucose,Urine (UA) Negative (Negative); Ketones,Urine Negative (Negative); Leukocyte Esterase,Urine Negative (Negative); Mucus,Urine Rare /hpf; Nitrite,Urine Positive (Negative); PH, Urine 6.5 (5.0-8.0); Protein,Urine Negative (Negative); RBC,Urine <1 /hpf (0-5); Specific Gravity,Urine 1.012 (1.001-1.035); Squamous Epithelial Cell,Urine 1 /hpf (0-4); Urobilinogen,Urine <2.0 mg/dL (<2.0); WBC,Urine 1 /hpf (0-5)
[2021-04-29 17:22] LABS: Amphetamine Screen,Urine Detected (NotDetected); Barbiturate Screen,Urine Not Detected (NotDetected); Benzodiazepines Screen,Urine Not Detected (NotDetected); Cocaine Screen,Urine Not Detected (NotDetected); Methadone Screen, Urine Not Detected (NotDetected); Opiate Screen,Urine Not Detected (NotDetected); Oxycodone Screen, Urine Not Detected (NotDetected); Phencyclidine Screen,Urine Not Detected (NotDetected); Tricyclic Antidepressant,Urine Not Detected (NotDetected); Urn Cannabinoid Scrn Detected (NotDetected)
--- NOTE | 2021-04-29 17:24 | ED ---
Overdose HPI - General Chief Complaint: Overdose Stated Complaint: overdose Source: family Mode of arrival: wheelchair Limitations: altered mental status - History of Present Illness Initial Comments: Patient is a 41-year-old female with past history of fibromyalgia, thyroid diso rder, seizure disorder who presents to the emergency department unresponsive. Friend dropped the patient off stating that she overdosed. Patient is brought into the trauma bay. I attempted to arouse the patient. Patient not arousable to verbal stimuli. Painful stimuli attempted for which the patient does open her eyes. I questioned the patient if she took any medication. Her response is "I took Klonopin your f b". Patient then has some incoherent speech and becomes unresponsive again. I did review the patient's chart. She was previously hospitalized earlier this year for drug overdose due to depression. The remainder of the HPI is limited - Related Data Home Medications Medication Instructions Recorded Confirmed Levothyroxine Sodium [Synthroid] 75 mcg PO DAILY 10/29/20 04/29/21 Topiramate [Topamax] 200 mg PO BID 10/29/20 04/29/21 DULoxetine HCL [Cymbalta] 60 mg PO DAILY 04/29/21 04/29/21 Gabapentin [Neurontin] 600 mg PO BID 04/29/21 04/29/21 cloNIDine HCL 0.2 mg PO HS 04/29/21 04/29/21 traZODone HCL [Desyrel] 50 mg PO HS 04/29/21 04/29/21 Allergies Allergy/AdvReac Type Severity Reaction Status Date / Time aspirin Allergy Unknown Verified 04/29/21 15:56 ibuprofen Allergy Unknown Verified 04/29/21 15:56 Penicillins Allergy Unknown Verified 04/29/21 15:56 Review of Systems ROS Statement: Those systems with pertinent positive or pertinent negative responses have been documented in the HPI. ROS Other: All systems not noted in ROS Statement are negative. Past Medical History Past Medical History: Cancer, Fibromyalgia, Osteoarthritis (OA), Seizure Disorder, Thyroid Disorder Additional Past Medical History / Comment(s): Pt tested covid + on 09/21/[address] George's office. Other hx: MIgraines, chronic back pain, last seizure about 6 months ago, occasional edema legs/feet, hypothyroid, cervical cancer with treatment. History of Any Multi-Drug Resistant Organisms: MRSA Date of last positivie culture/infection: 2007 MDRO Source:: L knee Past Surgical History: Adenoidectomy, Section, Tubal Ligation Additional Past Surgical History / Comment(s): Procedure for cervical cancer/pt cannot recall type of procedure, D&C, lumbar epidurals Past Anesthesia/Blood Transfusion Reactions: Postoperative Nausea & Vomiting (PONV) Additional Past Anesthesia/Blood Transfusion Reaction / Comment(s): Occasional PONV Past Psychological History: Anxiety, Depression Smoking Status: Current every day smoker Past Alcohol Use History: None Reported Past Drug Use History: None Reported - Past Family History Father History Unknown: Yes Additional Family Medical History / Comment(s): Father is . Mother Family Medical History: No Reported History Additional Family Medical History / Comment(s): Mother is healthy General Exam Limitations: altered mental status Course Vital Signs 04/29/21 04/29/21 04/29/21 15:26 15:44 15:45 Temperature Pulse Rate 49 L 44 L Respiratory 14 8 L 8 L Rate Blood Pressure 169/99 O2 Sat by Pulse 100 100 Oximetry 04/29/21 04/29/21 04/29/21 15:53 16:00 16:15 Temperature Pulse Rate 47 L 47 L 78 Respiratory 8 L 8 L 18 Rate Blood Pressure 141/109 138/99 169/125 O2 Sat by Pulse 100 100 100 Oximetry 04/29/21 04/29/21 04/29/21 16:30 16:47 17:00 Temperature Pulse Rate 55 L 50 L 51 L Respiratory 14 14 Rate Blood Pressure 158/105 159/124 157/106 O2 Sat by Pulse 100 100 Oximetry 04/29/21 04/29/21 04/29/21 17:15 17:30 18:00 Temperature 96.9 F L Pulse Rate 51 L 48 L 46 L Respiratory 14 14 14 Rate Blood Pressure 149/105 144/102 147/105 O2 Sat by Pulse 100 100 100 Oximetry 04/29/21 04/29/21 04/29/21 18:17 18:45 19:56 Temperature Pulse Rate 46 L 46 L 40 L Respiratory 14 14 14 Rate Blood Pressure 144/100 144/100 142/100 O2 Sat by Pulse 100 100 100 Oximetry 04/29/21 20:45 Temperature Pulse Rate 42 L Respiratory 14 Rate Blood Pressure 143/96 O2 Sat by Pulse 101 H Oximetry Medical Decision Making - Medical Decision Making Upon arrival patient is placed into trauma 3. She is hooked to continuous pulse ox and cardiac monitoring. 12-lead EKG obtained which demonstrates a marked sinus bradycardia. Patient's is minimally responsive. Medication list is reviewed. Patient is on Neurontin, clonidine, Cymbalta and Topamax. Benzodiazepine not listed. I did call and speak with poison control. They do recommend against flumazenil as it is unknown how much the patient abuses b enzodiazepines. The patient is also on gabapentin and has a questionable seizure disorder. I did provide the patient with 0.4 mg of Narcan for which the patient has no improvement in her symptoms. Patient does sustain respirations of 6 to 8. He is extremely difficult to arouse. Patient has no gag reflex. Because of this, patient is intubated for airway protection. She was given 100 mg of succinylcholine and 0.5 mg of atropine for her bradycardia.. I did place an 8 fr et tube which is 24 cm at the lip. X-rays performed which demonstrates that the ET tube is 8 mm from the hilum. Tube was retracted 2 cm. OG tube was advanced 5 cm. Laboratory studies are reviewed which demonstrates that the patient is positive for nitrates in her urine. Amphetamines, methamphetamines and marijuana are detected. I did send the patient over for a CT of her brain which demonstrates no acute process. Patient given a dose of Rocephin due to her nitrate positive urine. Spoke with Dr. Garcia who agreed to admit the patient. I also spoke with Dr. Brown present to the emergency department and evaluates the patient. I will place psychiatry on consult. Patient remained on the vent with propofol sedation stable condition and was transferred to the floor - Lab Data Result diagrams: 04/29/21 16:27 04/29/21 16:27 Lab Results 04/29/21 04/29/21 04/29/21 Range/Units 15:51 16:27 16:27 WBC 3.5 L (3.8-10.6) k/uL RBC 5.25 (3.80-5.40) m/uL Hgb 17.9 H (11.4-16.0) gm/dL Hct 52.7 H (34.0-46.0) % MCV 100.3 H (80.0-100.0) fL MCH 34.0 (25.0-35.0) pg MCHC 33.9 (31.0-37.0) g/dL RDW 12.5 (11.5-15.5) % Plt Count 88 L (150-450) k/uL MPV 8.0 Neutrophils % 51 % Lymphocytes % 41 % Monocytes % 4 % Eosinophils % 2 % Basophils % 0 % Neutrophils # 1.8 (1.3-7.7) k/uL Lymphocytes # 1.4 (1.0-4.8) k/uL Monocytes # 0.1 (0-1.0) k/uL Eosinophils # 0.1 (0-0.7) k/uL Basophils # 0.0 (0-0.2) k/uL PT 10.7 (9.0-12.0) sec INR 1.0 (<1.2) APTT 27.7 (22.0-30.0) sec Sample Site ABG pH (7.35-7.45) ABG pCO2 (35-45) mmHg ABG pO2 (83-108) mmHg ABG HCO3 (21-25) mmol/L ABG Total CO2 (19-24) mmol/L ABG O2 Saturation (94-97) % ABG Base Excess mmol/L Levi Test FiO2 % Sodium (137-145) mmol/L Potassium (3.5-5.1) mmol/L Chloride (98-107) mmol/L Carbon Dioxide (22-30) mmol/L Anion Gap mmol/L BUN (7-17) mg/dL Creatinine (0.52-1.04) mg/dL Est GFR (CKD-EPI)AfAm (>60 ml/min/1.73 sqM) Est GFR (CKD-EPI)NonAf (>60 ml/min/1.73 sqM) Glucose (74-99) mg/dL POC Glucose (mg/dL) 245 H (75-99) mg/dL POC Glu Mapping Supervisor ID Donell Uribe Plasma Lactic Acid Boby (0.7-2.0) mmol/L Calcium (8.4-10.2) mg/dL Total Bilirubin (0.2-1.3) mg/dL AST (14-36) U/L ALT (4-34) U/L Alkaline Phosphatase (38-126) U/L Creatine Kinase (30-135) U/L Troponin I (0.000-0.034) ng/mL Total Protein (6.3-8.2) g/dL Albumin (3.5-5.0) g/dL Lipase (23-300) U/L Urine Color Urine Appearance (Clear) Urine pH (5.0-8.0) Ur Specific [place] (1.001-1.035) Urine Protein (Negative) Urine Glucose (UA) (Negative) Urine Ketones (Negative) Urine Blood (Negative) Urine Nitrite (Negative) Urine Bilirubin (Negative) Urine Urobilinogen (<2.0) mg/dL Ur Leukocyte Esterase (Negative) Urine RBC (0-5) /hpf Urine WBC (0-5) /hpf Ur Squamous Epith Cells (0-4) /hpf Urine Bacteria (None) /hpf Urine Mucus (None) /hpf Urine HCG, Qual (Not Detectd) Salicylates mg/dL Urine Opiates Screen (NotDetected) Ur Oxycodone Screen (NotDetected) Urine Methadone Screen (NotDetected) Ur Propoxyphene Screen (NotDetected) Acetaminophen ug/mL Ur Barbiturates Screen (NotDetected) U Tricyclic Antidepress (NotDetected) Ur Phencyclidine Scrn (NotDetected) Ur Amphetamines Screen (NotDetected) U Methamphetamines Scrn (NotDetected) U Benzodiazepines Scrn (NotDetected) Urine Cocaine Screen (NotDetected) U Marijuana (THC) Screen (NotDetected) Serum Alcohol mg/dL Coronavirus (PCR) (Not Detectd) 04/29/21 04/29/21 04/29/21 Range/Units 16:27 16:27 16:27 WBC (3.8-10.6) k/uL RBC (3.80-5.40) m/uL Hgb (11.4-16.0) gm/dL Hct (34.0-46.0) % MCV (80.0-100.0) fL MCH (25.0-35.0) pg MCHC (31.0-37.0) g/dL RDW (11.5-15.5) % Plt Count (150-450) k/uL MPV Neutrophils % % Lymphocytes % % Monocytes % % Eosinophils % % Basophils % % Neutrophils # (1.3-7.7) k/uL Lymphocytes # (1.0-4.8) k/uL Monocytes # (0-1.0) k/uL Eosinophils # (0-0.7) k/uL Basophils # (0-0.2) k/uL PT (9.0-12.0) sec INR (<1.2) APTT (22.0-30.0) sec Sample Site ABG pH (7.35-7.45) ABG pCO2 (35-45) mmHg ABG pO2 (83-108) mmHg ABG HCO3 (21-25) mmol/L ABG Total CO2 (19-24) mmol/L ABG O2 Saturation (94-97) % ABG Base Excess mmol/L Levi Test FiO2 % Sodium 133 L (137-145) mmol/L Potassium 3.9 (3.5-5.1) mmol/L Chloride 104 (98-107) mmol/L Carbon Dioxide 21 L (22-30) mmol/L Anion Gap 8 mmol/L BUN 16 (7-17) mg/dL Creatinine 0.96 (0.52-1.04) mg/dL Est GFR (CKD-EPI)AfAm 84 (>60 ml/min/1.73 sqM) Est GFR (CKD-EPI)NonAf 73 (>60 ml/min/1.73 sqM) Glucose 262 H (74-99) mg/dL POC Glucose (mg/dL) (75-99) mg/dL POC Glu Mapping Supervisor ID Plasma Lactic Acid Boby 1.4 (0.7-2.0) mmol/L Calcium 8.6 (8.4-10.2) mg/dL Total Bilirubin 0.5 (0.2-1.3) mg/dL AST 19 (14-36) U/L ALT 12 (4-34) U/L Alkaline Phosphatase 39 (38-126) U/L Creatine Kinase 36 (30-135) U/L Troponin I 0.022 (0.000-0.034) ng/mL Total Protein 6.6 (6.3-8.2) g/dL Albumin 3.6 (3.5-5.0) g/dL Lipase 116 (23-300) U/L Urine Color Urine Appearance (Clear) Urine pH (5.0-8.0) Ur Specific [place] (1.001-1.035) Urine Protein (Negative) Urine Glucose (UA) (Negative) Urine Ketones (Negative) Urine Blood (Negative) Urine Nitrite (Negative) Urine Bilirubin (Negative) Urine Urobilinogen (<2.0) mg/dL Ur Leukocyte Esterase (Negative) Urine RBC (0-5) /hpf Urine WBC (0-5) /hpf Ur Squamous Epith Cells (0-4) /hpf Urine Bacteria (None) /hpf Urine Mucus (None) /hpf Urine HCG, Qual (Not Detectd) Salicylates <1.0 mg/dL Urine Opiates Screen (NotDetected) Ur Oxycodone Screen (NotDetected) Urine Methadone Screen (NotDetected) Ur Propoxyphene Screen (NotDetected) Acetaminophen <10.0 ug/mL Ur Barbiturates Screen (NotDetected) U Tricyclic Antidepress (NotDetected) Ur Phencyclidine Scrn (NotDetected) Ur Amphetamines Screen (NotDetected) U Methamphetamines Scrn (NotDetected) U Benzodiazepines Scrn (NotDetected) Urine Cocaine Screen (NotDetected) U Marijuana (THC) Screen (NotDetected) Serum Alcohol <10 mg/dL Coronavirus (PCR) (Not Detectd) 04/29/21 04/29/21 04/29/21 Range/Units 16:50 16:50 16:50 WBC (3.8-10.6) k/uL RBC (3.80-5.40) m/uL Hgb (11.4-16.0) gm/dL Hct (34.0-46.0) % MCV (80.0-100.0) fL MCH (25.0-35.0) pg MCHC (31.0-37.0) g/dL RDW (11.5-15.5) % Plt Count (150-450) k/uL MPV Neutrophils % % Lymphocytes % % Monocytes % % Eosinophils % % Basophils % % Neutrophils # (1.3-7.7) k/uL Lymphocytes # (1.0-4.8) k/uL Monocytes # (0-1.0) k/uL Eosinophils # (0-0.7) k/uL Basophils # (0-0.2) k/uL PT (9.0-12.0) sec INR (<1.2) APTT (22.0-30.0) sec Sample Site ABG pH (7.35-7.45) ABG pCO2 (35-45) mmHg ABG pO2 (83-108) mmHg ABG HCO3 (21-25) mmol/L ABG Total CO2 (19-24) mmol/L ABG O2 Saturation (94-97) % ABG Base Excess mmol/L Levi Test FiO2 % Sodium (137-145) mmol/L Potassium (3.5-5.1) mmol/L Chloride (98-107) mmol/L Carbon Dioxide (22-30) mmol/L Anion Gap mmol/L BUN (7-17) mg/dL Creatinine (0.52-1.04) mg/dL Est GFR (CKD-EPI)AfAm (>60 ml/min/1.73 sqM) Est GFR (CKD-EPI)NonAf (>60 ml/min/1.73 sqM) Glucose (74-99) mg/dL POC Glucose (mg/dL) (75-99) mg/dL POC Glu Mapping Supervisor ID Plasma Lactic Acid Boby (0.7-2.0) mmol/L Calcium (8.4-10.2) mg/dL Total Bilirubin (0.2-1.3) mg/dL AST (14-36) U/L ALT (4-34) U/L Alkaline Phosphatase (38-126) U/L Creatine Kinase (30-135) U/L Troponin I (0.000-0.034) ng/mL Total Protein (6.3-8.2) g/dL Albumin (3.5-5.0) g/dL Lipase (23-300) U/L Urine Color Yellow Urine Appearance Clear (Clear) Urine pH 6.5 (5.0-8.0) Ur Specific [place] 1.012 (1.001-1.035) Urine Protein Negative (Negative) Urine Glucose (UA) Negative (Negative) Urine Ketones Negative (Negative) Urine Blood Negative (Negative) Urine Nitrite Positive H (Negative) Urine Bilirubin Negative (Negative) Urine Urobilinogen <2.0 (<2.0) mg/dL Ur Leukocyte Esterase Negative (Negative) Urine RBC <1 (0-5) /hpf Urine WBC 1 (0-5) /hpf Ur Squamous Epith Cells 1 (0-4) /hpf Urine Bacteria Moderate H (None) /hpf Urine Mucus Rare H (None) /hpf Urine HCG, Qual Not Detected (Not Detectd) Salicylates mg/dL Urine Opiates Screen Not Detected (NotDetected) Ur Oxycodone Screen Not Detected (NotDetected) Urine Methadone Screen Not Detected (NotDetected) Ur Propoxyphene Screen Not Detected (NotDetected) Acetaminophen ug/mL Ur Barbiturates Screen Not Detected (NotDetected) U Tricyclic Antidepress Not Detected (NotDetected) Ur Phencyclidine Scrn Not Detected (NotDetected) Ur Amphetamines Screen Detected H (NotDetected) U Methamphetamines Scrn Detected H (NotDetected) U Benzodiazepines Scrn Not Detected (NotDetected) Urine Cocaine Screen Not Detected (NotDetected) U Marijuana (THC) Screen Detected H (NotDetected) Serum Alcohol mg/dL Coronavirus (PCR) (Not Detectd) 04/29/21 04/29/21 Range/Units 16:51 18:03 WBC (3.8-10.6) k/uL RBC (3.80-5.40) m/uL Hgb (11.4-16.0) gm/dL Hct (34.0-46.0) % MCV (80.0-100.0) fL MCH (25.0-35.0) pg MCHC (31.0-37.0) g/dL RDW (11.5-15.5) % Plt Count (150-450) k/uL MPV Neutrophils % % Lymphocytes % % Monocytes % % Eosinophils % % Basophils % % Neutrophils # (1.3-7.7) k/uL Lymphocytes # (1.0-4.8) k/uL Monocytes # (0-1.0) k/uL Eosinophils # (0-0.7) k/uL Basophils # (0-0.2) k/uL PT (9.0-12.0) sec INR (<1.2) APTT (22.0-30.0) sec Sample Site lbrac ABG pH 7.34 L (7.35-7.45) ABG pCO2 44 (35-45) mmHg ABG pO2 >400 H (83-108) mmHg ABG HCO3 24 (21-25) mmol/L ABG Total CO2 25 H (19-24) mmol/L ABG O2 Saturation 100.0 H (94-97) % ABG Base Excess -2.3 mmol/L Levi Test Yes FiO2 100 % Sodium (137-145) mmol/L Potassium (3.5-5.1) mmol/L Chloride (98-107) mmol/L Carbon Dioxide (22-30) mmol/L Anion Gap mmol/L BUN (7-17) mg/dL Creatinine (0.52-1.04) mg/dL Est GFR (CKD-EPI)AfAm (>60 ml/min/1.73 sqM) Est GFR (CKD-EPI)NonAf (>60 ml/min/1.73 sqM) Glucose (74-99) mg/dL POC Glucose (mg/dL) (75-99) mg/dL POC Glu Mapping Supervisor ID Plasma Lactic Acid Boby (0.7-2.0) mmol/L Calcium (8.4-10.2) mg/dL Total Bilirubin (0.2-1.3) mg/dL AST (14-36) U/L ALT (4-34) U/L Alkaline Phosphatase (38-126) U/L Creatine Kinase (30-135) U/L Troponin I (0.000-0.034) ng/mL Total Protein (6.3-8.2) g/dL Albumin (3.5-5.0) g/dL Lipase (23-300) U/L Urine Color Urine Appearance (Clear) Urine pH (5.0-8.0) Ur Specific [place] (1.001-1.035) Urine Protein (Negative) Urine Glucose (UA) (Negative) Urine Ketones (Negative) Urine Blood (Negative) Urine Nitrite (Negative) Urine Bilirubin (Negative) Urine Urobilinogen (<2.0) mg/dL Ur Leukocyte Esterase (Negative) Urine RBC (0-5) /hpf Urine WBC (0-5) /hpf Ur Squamous Epith Cells (0-4) /hpf Urine Bacteria (None) /hpf Urine Mucus (None) /hpf Urine HCG, Qual (Not Detectd) Salicylates mg/dL Urine Opiates Screen (NotDetected) Ur Oxycodone Screen (NotDetected) Urine Methadone Screen (NotDetected) Ur Propoxyphene Screen (NotDetected) Acetaminophen ug/mL Ur Barbiturates Screen (NotDetected) U Tricyclic Antidepress (NotDetected) Ur Phencyclidine Scrn (NotDetected) Ur Amphetamines Screen (NotDetected) U Methamphetamines Scrn (NotDetected) U Benzodiazepines Scrn (NotDetected) Urine Cocaine Screen (NotDetected) U Marijuana (THC) Screen (NotDetected) Serum Alcohol mg/dL Coronavirus (PCR) Not Detected (Not Detectd) - EKG Data EKG Comments: EKG demonstrates a sinus bradycardia with a ventricular rate of 45. VT interval 164. QRS 84. QTC of 415. No acute ST segment elevations or depressions. Disposition Clinical Impression: Drug overdose, Altered mental status, Bradycardia Disposition: ADMITTED IP TO THIS [facility] Condition: Serious Is patient prescribed a controlled substance at d/c from ED?: No Decision to Admit Reason: Admit from EC Decision Date: 04/29/21 Decision Time: 17:24
--- NOTE | 2021-04-29 18:22 | CT ---
EXAMINATION TYPE: CT brain wo con DATE OF EXAM: 04/29/2021 COMPARISON: CT 12/14/2020 HISTORY: Mental status changes. CT DLP: 1099.4 mGycm. Automated Exposure Control for Dose Reduction was Utilized. TECHNIQUE: CT scan of the head is performed without contrast. FINDINGS: There is no acute intracranial hemorrhage, mass effect, or midline shift identified. The ventricles and sulci are within normal limits in size. The globes are intact and the visualized sin uses are clear. IMPRESSION: No acute intracranial hemorrhage, mass effect, or midline shift is seen.
--- NOTE | 2021-04-29 18:52 | P.CNPUL ---
History of Present Illness Consult date: 04/29/21 Chief complaint: Drug overdose History of present illness: This is a 41-year-old female patient, who was brought into the emergency because of drug overdose. The patient was briefly responsive and she stated that she took clonidine and following that she became progressively more tender than lethargic and she had to be intubated and placed on a mechanical ventilator. At this time of my evaluation, the patient was already intubated on a respirator. She has a chronic psychiatric history with depression and she has also history of methamphetamine abuse and cannabis use disorder. She is a smoker. Urine toxin was positive for methamphetamines and cannabis/THC. She did encounter some sinus bradycardia and EKG confirmed that. This probably related to clonidine overdose. The exact timing and amount of drug ingestion is not known. She is also on a combination about the psychiatric medications include trazodone 50 mg at bedtime, Topamax 200 mg by mouth twice a day and gabapentin 600 mg by mouth twice a day and Cymbalta 60 mg by mouth daily. It is not clear to me at this point if the patient has taken any other drugs. As stated, and she EKG showing a sinus bradycardia probably related to clonidine effect. No significant hypotension pH is currently on IV fluids of normal saline at the rate of 100 is an hour. She is also sedated with propofol which is running at 25 mcg/kg per minute. She is intubated on a mechanical ventilator. That she was adjusted and the chest x-ray showing some limited right basal atelectasis/infiltration. The patient is an assist-control rate of 14, tidal volume of 300 that was brought up to 350, FiO2 of 40% and a PEEP of 5. Post intubation blood gases showed a pH of 7.34 with a pCO2 of 44 and pO2 more than 400. Electrolytes were all within normal limits. UA was within normal. Coli level was less than 10. Salicylates were negative, Tylenol was negative, COVID 19 testing was negative, LFTs were within normal limits, glucose was up to 62 and a white cell count was at 3.5 with hemoglobin 17.9. She has chronic thrombocytopenia with a platelet count of 88. Review of Systems ROS unobtainable: due to mental status Past Medical History Past Medical History: Cancer, Fibromyalgia, Osteoarthritis (OA), Seizure Disorder, Thyroid Disorder Additional Past Medical History / Comment(s): Pt tested covid + on 09/21/[address] George's office. Other hx: MIgraines, chronic back pain, last seizure about 6 months ago, occasional edema legs/feet, hypothyroid, cervical cancer with treatment. History of Any Multi-Drug Resistant Organisms: MRSA Date of last positivie culture/infection: 2007 MDRO Source:: L knee Past Surgical History: Adenoidectomy, Section, Tubal Ligation Additional Past Surgical History / Comment(s): Procedure for cervical cancer/pt cannot recall type of procedure, D&C, lumbar epidurals Past Anesthesia/Blood Transfusion Reactions: Postoperative Nausea & Vomiting (PONV) Additional Past Anesthesia/Blood Transfusion Reaction / Comment(s): Occasional PONV Past Psychological History: Anxiety, Depression Smoking Status: Current every day smoker Past Alcohol Use History: None Reported Past Drug Use History: None Reported - Past Family History Father History Unknown: Yes Additional Family Medical History / Comment(s): Father is . Mother Family Medical History: No Reported History Additional Family Medical History / Comment(s): Mother is healthy Medications and Allergies Home Medications Medication Instructions Recorded Confirmed Type Levothyroxine Sodium [Synthroid] 75 mcg PO DAILY 10/29/20 04/29/21 History Topiramate [Topamax] 200 mg PO BID 10/29/20 04/29/21 History DULoxetine HCL [Cymbalta] 60 mg PO DAILY 04/29/21 04/29/21 History Gabapentin [Neurontin] 600 mg PO BID 04/29/21 04/29/21 History cloNIDine HCL 0.2 mg PO HS 04/29/21 04/29/21 History traZODone HCL [Desyrel] 50 mg PO HS 04/29/21 04/29/21 History Allergies Allergy/AdvReac Type Severity Reaction Status Date / Time aspirin Allergy Unknown Verified 04/29/21 15:56 ibuprofen Allergy Unknown Verified 04/29/21 15:56 Penicillins Allergy Unknown Verified 04/29/21 15:56 Physical Exam Vitals: Vital Signs Temp Pulse Resp BP Pulse Ox 04/29/21 18:17 46 L 14 144/100 100 04/29/21 18:00 46 L 14 147/105 100 04/29/21 17:30 48 L 14 144/102 100 04/29/21 17:15 96.9 F L 51 L 14 149/105 100 04/29/21 17:00 51 L 14 157/106 100 04/29/21 16:47 50 L 14 159/124 100 04/29/21 16:30 55 L 158/105 04/29/21 16:15 78 18 169/125 100 04/29/21 16:00 47 L 8 L 138/99 100 04/29/21 15:53 47 L 8 L 141/109 100 04/29/21 15:45 44 L 8 L 169/99 100 04/29/21 15:44 8 L 04/29/21 15:26 49 L 14 100 Intake and Output 04/29/21 04/29/21 04/29/21 06:59 14:59 22:59 Intake Total 7.734 Balance 7.734 Intake: Intake, IV Titration 7.734 Amount propofoL 1,000 mg In 7.734 Empty Bag 1 bag @ 25 MCG/ KG/MIN 6.804 mls/hr IV . [id number] [facility] Rx#:[id number] Other: Weight 45.359 kg Gen. appearance the patient is calm and comfortable intubated on a mechanical ventilator, currently sedated with propofol and the patient is quite successive mechanical ventilator. Head exam was generally normal. There was no scleral icterus or corneal arcus. Mucous membranes were moist. Neck was supple and without jugular venous distension, thyromegaly, or carotid bruits. Carotids were easily palpable bilaterally. There was no adenopathy. The orogastric and orotracheal tube are both in place Lungs were clear to auscultation and percussion, and with normal diaphragmatic excursion. No wheezes or rales were noted. Cardiac exam revealed the PMI to be normally situated and sized. The rhythm was regular and no extrasystoles were noted during several minutes of auscultation. The first and second heart sounds were normal and physiologic splitting of the second heart sound was noted. There were no murmurs, rubs, clicks, or gallops. Abdominal exam revealed normal bowel sounds. The abdomen was soft, non-tender, and without masses, organomegaly, or appreciable enlargement of the abdominal aorta. Examination of the extremities revealed easily palpable radial, femoral and pedal pulses. There was no cyanosis, clubbing or edema. Examination of the skin revealed no evidence of significant rashes, suspicious appearing nevi or other concerning lesions. Neurologically, pupils are equal and reactive to light. The patient sedated with propofol. No focal neurological deficits. No facial asymmetry. Motor and sensory functions cannot be assessed at this point in time. Results - Laboratory Findings CBC and BMP: 04/29/21 16:27 04/29/21 16:27 ABG ABG pH 7.34 (7.35-7.45) L 04/29/21 16:51 ABG pCO2 44 mmHg (35-45) 04/29/21 16:51 ABG pO2 >400 mmHg (83-108) H 04/29/21 16:51 ABG O2 Saturation 100.0 % (94-97) H 04/29/21 16:51 PT/INR, D-dimer PT 10.7 sec (9.0-12.0) 04/29/21 16:27 INR 1.0 (<1.2) 04/29/21 16:27 Abnormal lab findings: Abnormal Labs 04/29/21 04/29/21 04/29/21 15:51 16:27 16:27 WBC 3.5 L Hgb 17.9 H Hct 52.7 H MCV 100.3 H Plt Count 88 L ABG pH ABG pO2 ABG Total CO2 ABG O2 Saturation Sodium 133 L Carbon Dioxide 21 L Glucose 262 H POC Glucose (mg/dL) 245 H Urine Nitrite Urine Bacteria Urine Mucus Ur Amphetamines Screen U Methamphetamines Scrn U Marijuana (THC) Screen 04/29/21 04/29/21 04/29/21 16:50 16:50 16:51 WBC Hgb Hct MCV Plt Count ABG pH 7.34 L ABG pO2 >400 H ABG Total CO2 25 H ABG O2 Saturation 100.0 H Sodium Carbon Dioxide Glucose POC Glucose (mg/dL) Urine Nitrite Positive H Urine Bacteria Moderate H Urine Mucus Rare H Ur Amphetamines Screen Detected H U Methamphetamines Scrn Detected H U Marijuana (THC) Screen Detected H - Diagnostic Findings Chest x-ray: image reviewed Assessment and Plan Plan: 1 acute drug overdose with diminished level of consciousness and the patient was considerably obtunded to the point where the patient was unable to protect her airways and the patient was intubated and placed on a mechanical ventilator in the emergency department. Urine drug screen is positive for THC, amphetamine and the patient has confessed for taken clonidine in overdose. She also has various other psychotropic medication including Cymbalta, Depakote, trazodone and gabapentin. 2 acute hypoxic/hypercapnic respiratory failure due to drug overdose, currently intubated on a mechanical ventilator 3 limited right basilar atelectasis 4 sinus bradycardia, rule out secondary to clonidine overdose 5 fibromyalgia 6 history of cervical cancer 7 hypothyroidism maintained on Synthroid on outpatient basis 8 history of major depression 9 history of seizure disorder 10 history of COVID 19 positive infection back in 09/21/2020 at her primary care physician's office Plan Admit this patient to the ICU Overnight keep the patient mechanical ventilator and wean down FiO2 to maintain saturation above 90% Overnight keep the patient on sedation and we'll given a sedation holiday tomorrow morning. Monitor hemodynamics Monitor sinus bradycardia Urine drug screen was noted Heparin subcu for DVT prophylaxis IV Protonix Psychiatric evaluation postextubation Hold trazodone and Cymbalta Hold Neurontin We'll continue to follow
[2021-04-29] MEDS: SODIUM CHLORIDE 0.9% 1,000 ML IV SCH ×2 (19:55→21:46)
[2021-04-29] MEDS: HEPARIN SODIUM,PORCINE/PF 5,000 UNIT/0.5 ML SYRINGE SQ SCH (19:55)
[2021-04-29] MEDS: PANTOPRAZOLE 40 MG/10 ML VIAL IVP SCH (19:55)
[2021-04-29 21:14] LABS: Glucose,Whole Blood 119 mg/dL (75-99)
[2021-04-29] MEDS ORDERED: cefTRIAXone IN SWFI 1,000 MG/10 ML SYRINGE IVP STA (21:27)
[2021-04-30 04:41] LABS: Basophils % (A) 0 %; Eosinophils # (A) 0.1 k/uL (0-0.7); Eosinophils % (A) 1 %; HCT 42.9 % (34.0-46.0); Lymphocytes # (A) 1.8 k/uL (1.0-4.8); Lymphocytes % (A) 22 %; MCV 103.3 fL (80.0-100.0); Macrocytosis Slight; Mean Platelet Volume 8.3; Monocytes # (A) 0.3 k/uL (0-1.0); Monocytes % (A) 4 %; Neutrophils % (A) 72 %; Platelet Count 112 k/uL (150-450); RBC 4.15 m/uL (3.80-5.40); RDW 12.5 % (11.5-15.5); WBC 8.4 k/uL (3.8-10.6)
[2021-04-30 04:51] LABS: HGB 14.1 gm/dL (11.4-16.0)
[2021-04-30 05:09] LABS: African American GFR (CKD) >90 (>60 ml/min/1.73 sqM); Anion Gap 5 mmol/L; Blood Urea Nitrogen 12 mg/dL (7-17); Calcium 8.7 mg/dL (8.4-10.2); Carbon Dioxide 19 mmol/L (22-30); Chloride 113 mmol/L (98-107); Glucose 110 mg/dL (74-99); Non-African American GFR(CKD) >90 (>60 ml/min/1.73 sqM); Potassium 3.9 mmol/L (3.5-5.1); Sodium 137 mmol/L (137-145)
[2021-04-30 05:27] LABS: ABG Base Excess -3.7 mmol/L; ABG HCO3 22 mmol/L (21-25); ABG Oxygen Saturation 96.3 % (94-97); ABG PCO2 40 mmHg (35-45); ABG PH 7.35 (7.35-7.45); ABG PO2 86 mmHg (83-108); ABG TCO2 23 mmol/L (19-24); Allen Test Performed? Yes
--- NOTE | 2021-04-30 08:00 | XR ---
EXAMINATION TYPE: XR chest 1V DATE OF EXAM: 04/30/2021 COMPARISON: 04/29/2020 HISTORY: ET tube placement TECHNIQUE: Single frontal view of the chest is obtained. FINDINGS: ET and NG tubes stable. Subsegmental changes bilateral lung bases. No pneumothorax. Heart size normal. No overt failure. IMPRESSION: Stable basilar atelectasis or early infiltrate.
[2021-04-30 08:16] LABS: HGB 13.7 gm/dL (11.4-16.0); MCH 34.2 pg (25.0-35.0); MCHC 34.3 g/dL (31.0-37.0); MCV 99.8 fL (80.0-100.0); Mean Platelet Volume 8.9; Platelet Count 104 k/uL (150-450); RBC 4.01 m/uL (3.80-5.40); RDW 12.1 % (11.5-15.5); WBC 9.4 k/uL (3.8-10.6)
[2021-04-30 08:38] LABS: African American GFR (CKD) >90 (>60 ml/min/1.73 sqM); Anion Gap 7 mmol/L; Blood Urea Nitrogen 12 mg/dL (7-17); Calcium 8.6 mg/dL (8.4-10.2); Carbon Dioxide 21 mmol/L (22-30); Chloride 111 mmol/L (98-107); Glucose 113 mg/dL (74-99); Non-African American GFR(CKD) 82 (>60 ml/min/1.73 sqM); Potassium 3.9 mmol/L (3.5-5.1); Sodium 139 mmol/L (137-145)
--- NOTE | 2021-04-30 08:43 | P.PN ---
Subjective Progress Note Date: 04/30/21 This is a 41-year-old female patient, who was brought into the emergency because of drug overdose. The patient was briefly responsive and she stated that she took clonidine and following that she became progressively more tender than lethargic and she had to be intubated and placed on a mechanical ventilator. At this time of my evaluation, the patient was already intubated on a respirator. She has a chronic psychiatric history with depression and she has also history of methamphetamine abuse and cannabis use disorder. She is a smoker. Urine toxin was positive for methamphetamines and cannabis/THC. She did encounter some sinus bradycardia and EKG confirmed that. This probably related to cloni dine overdose. The exact timing and amount of drug ingestion is not known. She is also on a combination about the psychiatric medications include trazodone 50 mg at bedtime, Topamax 200 mg by mouth twice a day and gabapentin 600 mg by mouth twice a day and Cymbalta 60 mg by mouth daily. It is not clear to me at this point if the patient has taken any other drugs. As stated, and she EKG showing a sinus bradycardia probably related to clonidine effect. No significant hypotension pH is currently on IV fluids of normal saline at the rate of 100 is an hour. She is also sedated with propofol which is running at 25 mcg/kg per minute. She is intubated on a mechanical ventilator. That she was adjusted and the chest x-ray showing some limited right basal atelectasis/infiltration. The patient is an assist-control rate of 14, tidal volume of 300 that was brought up to 350, FiO2 of 40% and a PEEP of 5. Post intubation blood gases showed a pH of 7.34 with a pCO2 of 44 and pO2 more than 400. Electrolytes were all within normal limits. UA was within normal. Coli level was less than 10. Salicylates were negative, Tylenol was negative, COVID 19 testing was negative, LFTs were within normal limits, glucose was up to 62 and a white cell count was at 3.5 with hemoglobin 17.9. She has chronic thrombocytopenia with a platelet count of 88. On 04/30/2021 patient seen in follow-up in the intensive care unit, she was intubated yesterday in the emergency department for respiratory depression related to overdose. Patient apparently told the ED physician that she took clonidine, however. Urine drug screen was positive for amphetamines, methamphetamines and marijuana. Serum alcohol level was less than 10, was delayed level was less than 1.0. However patient takes other psychiatric medications including trazodone, Topamax, Cymbalta and gabapentin. Patient has a previous history of drug overdose. This morning patient is intubated, sedated on assist control mode of ventilation with a rate of 14, tidal volume 350, FiO2 of 40% and PEEP of 5, this morning's blood gas shows pO2 of 86, pCO2 of 40, and pH of 7.35, this was done on the above mentioned vent settings. CBC was revie thu showing normal white count of 9.4, hemoglobin of 13.7, sodium of 137, potassium is 3.9, chloride is 113, CO2 is 19, B1 is 12 creatinine 0.73. Patient was also tested for COVID-19 per PCR and that was negative. Chest x-ray this morning showing stable basilar atelectasis. Vital signs have been stable overnight, hemodynamically patient has been stable, she is in sinus mechanism with a rate of 52 BPM. Output has been adequate and the order of 30 ML per hour overnight. Patient is on light sedation with Diprivan at 30 mics per kilo per minute, and 0.9 normal saline at a rate of 100 ML per hour. Patient quickly became awake to voice, became very agitated, and was attempting self-extubation. He was successfully extubated, she is still very agitated, she does follow commands, she is talking very fast, and talking about needing to file a police report about people trying to videotape her while having sex. Otherwise in no acute distress, breathing comfortably, does have a effective productive cough, has brought up some thick phlegm. Objective - Vital Signs Vital signs: Vital Signs Temp 95 F L 04/30/21 00:00 Pulse 52 L 04/30/21 07:00 Resp 18 04/30/21 07:00 BP 131/95 04/30/21 07:00 Pulse Ox 100 04/30/21 07:00 Intake & Output 04/29/21 04/30/21 04/30/21 18:59 06:59 18:59 Intake Total 7.734 1059.248 123.134 Output Total 1475 30 Balance 7.734 -415.752 93.134 Weight 56.5 kg Intake: IV 950 100 Sodium Chloride 0.9% 1, 900 100 000 ml @ 100 mls/hr IV . Q10H [facility] Rx#:[id number] cefTRIAXone 1 gm In 50 Sodium Chloride 0.9% 50 ml @ 100 mls/hr IVPB [facility]CE [facility] Rx#:[id number] Intake, IV Titration 7.734 109.248 23.134 Amount propofoL 1,000 mg In 7.734 109.248 23.134 Empty Bag 1 bag @ 25 MCG/ KG/MIN 6.804 mls/hr IV . [id number] [facility] Rx#:[id number] Output: Urine 1475 30 Other: Voiding Method Indwelling Catheter - Exam GENERAL EXAM: Alert, agitated, 41-year-old thin built female, intubated on [facility] ventilator comfortable in no apparent distress. HEAD: Normocephalic/atraumatic. EYES: Normal reaction of pupils, equal size. Conjunctiva pink, sclera white. NOSE: Clear with pink turbinates. THROAT: No erythema or exudates. NECK: No masses, no JVD, no thyroid enlargement, no adenopathy. CHEST: No chest wall deformity. Symmetrical expansion. LUNGS: Equal air entry with no crackles, wheeze, rhonchi or dullness. CVS: Regular rate and rhythm, normal S1 and S2, no gallops, no murmurs, no rubs ABDOMEN: Soft, nontender. No hepatosplenomegaly, normal bowel sounds, no guarding or rigidity. EXTREMITIES: No clubbing, no edema, no cyanosis, 2+ pulses and upper and lower extremities. MUSCULOSKELETAL: Muscle strength and tone normal. SPINE: No scoliosis or deformity SKIN: No rashes CENTRAL NERVOUS SYSTEM: Alert and oriented -3. No focal deficits, tone is normal in all 4 extremities. PSYCHIATRIC: Alert and oriented -3. Appropriate affect. Intact judgment and insight. - Labs CBC & Chem 7: 04/30/21 07:20 04/30/21 03:25 Labs: Abnormal Lab Results - Last 24 Hours (Table) 04/29/21 04/29/21 04/29/21 Range/Units 15:51 16:27 16:27 WBC 3.5 L (3.8-10.6) k/uL Hgb 17.9 H (11.4-16.0) gm/dL Hct 52.7 H (34.0-46.0) % MCV 100.3 H (80.0-100.0) fL Plt Count 88 L (150-450) k/uL ABG pH (7.35-7.45) ABG pO2 (83-108) mmHg ABG Total CO2 (19-24) mmol/L ABG O2 Saturation (94-97) % Sodium 133 L (137-145) mmol/L Chloride (98-107) mmol/L Carbon Dioxide 21 L (22-30) mmol/L Glucose 262 H (74-99) mg/dL POC Glucose (mg/dL) 245 H (75-99) mg/dL Urine Nitrite (Negative) Urine Bacteria (None) /hpf Urine Mucus (None) /hpf Ur Amphetamines Screen (NotDetected) U Methamphetamines Scrn (NotDetected) U Marijuana (THC) Screen (NotDetected) 04/29/21 04/29/21 04/29/21 Range/Units 16:50 16:50 16:51 WBC (3.8-10.6) k/uL Hgb (11.4-16.0) gm/dL Hct (34.0-46.0) % MCV (80.0-100.0) fL Plt Count (150-450) k/uL ABG pH 7.34 L (7.35-7.45) ABG pO2 >400 H (83-108) mmHg ABG Total CO2 25 H (19-24) mmol/L ABG O2 Saturation 100.0 H (94-97) % Sodium (137-145) mmol/L Chloride (98-107) mmol/L Carbon Dioxide (22-30) mmol/L Glucose (74-99) mg/dL POC Glucose (mg/dL) (75-99) mg/dL Urine Nitrite Positive H (Negative) Urine Bacteria Moderate H (None) /hpf Urine Mucus Rare H (None) /hpf Ur Amphetamines Screen Detected H (NotDetected) U Methamphetamines Scrn Detected H (NotDetected) U Marijuana (THC) Screen Detected H (NotDetected) 04/29/21 04/30/21 04/30/21 Range/Units 21:12 03:25 03:25 WBC (3.8-10.6) k/uL Hgb (11.4-16.0) gm/dL Hct (34.0-46.0) % MCV 103.3 H (80.0-100.0) fL Plt Count 112 L (150-450) k/uL ABG pH (7.35-7.45) ABG pO2 (83-108) mmHg ABG Total CO2 (19-24) mmol/L ABG O2 Saturation (94-97) % Sodium (137-145) mmol/L Chloride 113 H (98-107) mmol/L Carbon Dioxide 19 L (22-30) mmol/L Glucose 110 H (74-99) mg/dL POC Glucose (mg/dL) 119 H (75-99) mg/dL Urine Nitrite (Negative) Urine Bacteria (None) /hpf Urine Mucus (None) /hpf Ur Amphetamines Screen (NotDetected) U Methamphetamines Scrn (NotDetected) U Marijuana (THC) Screen (NotDetected) 04/30/21 Range/Units 07:20 WBC (3.8-10.6) k/uL Hgb (11.4-16.0) gm/dL Hct (34.0-46.0) % MCV (80.0-100.0) fL Plt Count 104 L (150-450) k/uL ABG pH (7.35-7.45) ABG pO2 (83-108) mmHg ABG Total CO2 (19-24) mmol/L ABG O2 Saturation (94-97) % Sodium (137-145) mmol/L Chloride (98-107) mmol/L Carbon Dioxide (22-30) mmol/L Glucose (74-99) mg/dL POC Glucose (mg/dL) (75-99) mg/dL Urine Nitrite (Negative) Urine Bacteria (None) /hpf Urine Mucus (None) /hpf Ur Amphetamines Screen (NotDetected) U Methamphetamines Scrn (NotDetected) U Marijuana (THC) Screen (NotDetected) Assessment and Plan Plan: Assessment: #1. acute drug overdose with diminished level of consciousness and the patient was considerably obtunded to the point where the patient was unable to protect her airways and the patient was intubated and placed on a mechanical ventilator in the emergency department. Urine drug screen is positive for THC, amphetamine and the patient has confessed for taken clonidine in overdose. She also has various other psychotropic medication including Cymbalta, Depakote, trazodone and gabapentin. #2. Acute hypoxic/hypercapnic respiratory failure due to drug overdose, currently intubated on a mechanical ventilator, extubated on 04/30/2021. #3. Limited right basilar atelectasis #4. sinus bradycardia, rule out secondary to clonidine overdose #5. fibromyalgia #6. history of cervical cancer #7. hypothyroidism maintained on Synthroid on outpatient basis #8. history of major depression #9. history of seizure disorder #10. history of COVID 19 positive infection back in 09/21/2020 at her primary care physician's office Plan: She was extubated this morning tolerating extubation well so far Deep breathing and coughing, Hemodynamically she stable Today's chest x-ray reviewed showing bibasilar atelectasis Today's labs have been reviewed, CBC and CMP are for the most part unremarkable Safety precautions, provided a drug safety coordinator We'll restart patient's medications Nothing by mouth for 4 hours post extubation Then may start with sips of clear liquids and advance diet as tolerated We'll restart patient's home medications Consult psychiatry Transfer to [facility] with drug safety coordinator in 4 hours I performed a history & physical examination of the patient and discussed their management with my nurse practitioner, Elaine Titus. I reviewed the nurse practitioner's note and agree with the documented findings and plan of care. Lung sounds are positive fordimin breath sounds throughout the lung baez. The findings and the impression was discussed with the patient. I attest to the documentation by the nurse practitioner. Time with Patient: Greater than 30
[2021-04-30] MEDS ORDERED: LEVOTHYROXINE 75 MCG TAB PO SCH (09:00)
[2021-04-30] MEDS ORDERED: INSULIN ASPART (NovoLOG) 100 UNIT/ML VIAL SQ SCH (12:00)
[2021-04-30] MEDS ORDERED: HALOPERIDOL LACTATE 5 MG/ML 1 ML VIAL IM PRN (12:03)
[2021-04-30] MEDS ORDERED: haloperidoL 5 MG TAB PO PRN (12:03)
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
[2021-04-30] MEDS: HEPARIN SODIUM,PORCINE/PF 5,000 UNIT/0.5 ML SYRINGE SQ SCH ×2 (12:35→20:31)
[2021-04-30] MEDS: PANTOPRAZOLE 40 MG/10 ML VIAL IVP SCH (12:36)
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
[2021-04-30 19:39] VITALS: BP 120/73; PULSE 58; RESP 18; TEMP 98.5
== END 2021-04-30 20:30 | DRG 917 ==
LOC: EC 15:22 → 2SICU 18:22
PROVIDERS: ADMIT Family Medicine; ATTEND Family Medicine
PROC: 5A1935Z Respiratory Ventilation, Less than 24 Consecutive Hours (ICD-10-PCS; principal; 2021-04-29)
PROC: 0BH17EZ Insertion of Endotracheal Airway into Trachea, Via Natural or Artificial Opening (ICD-10-PCS; 2021-04-29)
DX: T46.5X1A Poisoning by other antihypertensive drugs, accidental (unintentional), initial encounter (principal); J96.01 Acute respiratory failure with hypoxia; J96.02 Acute respiratory failure with hypercapnia; J98.11 Atelectasis; Z99.11 Dependence on respirator [ventilator] status; R00.1 Bradycardia, unspecified; F12.90 Cannabis use, unspecified, uncomplicated; F15.90 Other stimulant use, unspecified, uncomplicated; Z20.822 Contact with and (suspected) exposure to COVID-19; D69.6 Thrombocytopenia, unspecified; E03.9 Hypothyroidism, unspecified; G40.909 Epilepsy, unspecified, not intractable, without status epilepticus; F17.210 Nicotine dependence, cigarettes, uncomplicated; F31.9 Bipolar disorder, unspecified; F41.9 Anxiety disorder, unspecified; M19.90 Unspecified osteoarthritis, unspecified site; G89.29 Other chronic pain; M54.9 Dorsalgia, unspecified; M79.7 Fibromyalgia; Z79.890 Hormone replacement therapy; Z79.899 Other long term (current) drug therapy; Z85.41 Personal history of malignant neoplasm of cervix uteri; Z86.16 Personal history of COVID-19; Z88.0 Allergy status to penicillin; Z88.6 Allergy status to analgesic agent; Z98.51 Tubal ligation status
CPT/HCPCS: 36415; 36600; 70450; 71045; 80048; 80053; 80143; 80179; 80306; 80320; 81001; 81025; 82550; 82805; 83036; 83605; 83690; 84484; 85025; 85027; 85610; 85730; 87040; 87070; 87205; 87635; 93005; 94002; 94003; 96361; 96374; 96375; 99285

== ENCOUNTER 2021-04-30 20:20 | Inpatient (IN) | payer MEDICAID ==
[2021-04-30] MEDS ORDERED: MAGNESIUM HYDROXIDE 2,400 MG/10 ML CUP PO PRN (21:21)
[2021-04-30] MEDS ORDERED: MAG HYDROX/AL HYDROX/SIMETH 30 ML CUP PO PRN (21:21)
[2021-04-30] MEDS ORDERED: ACETAMINOPHEN TAB 325 MG TAB PO PRN (21:21)
[2021-04-30] MEDS ORDERED: LORazepam 1 MG TAB PO PRN (21:21)
[2021-04-30] MEDS ORDERED: LORazepam 2 MG/ML INJ IM PRN (21:37)
[2021-04-30] MEDS ORDERED: HALOPERIDOL LACTATE 5 MG/ML 1 ML VIAL IM PRN (21:38)
[2021-04-30] MEDS ORDERED: haloperidoL 5 MG TAB PO PRN (21:38)
[2021-04-30] MEDS: TOPIRAMATE 100 MG TAB PO SCH (23:31)
[2021-04-30] MEDS: traZODone HCL 50 MG TAB PO SCH (23:32)
[2021-04-30] MEDS: cloNIDine HCL 0.2 MG TAB PO SCH (23:32)
[2021-04-30] MEDS: GABAPENTIN 300 MG CAP PO SCH (23:32)
[2021-05-01] MEDS: LEVOTHYROXINE 75 MCG TAB PO SCH (06:51)
[2021-05-01] MEDS: DULoxetine HCL 60 MG CAPSULE.DR PO SCH ×2 (09:29→20:33)
[2021-05-01] MEDS: GABAPENTIN 300 MG CAP PO SCH ×2 (09:30→20:43)
[2021-05-01] MEDS: TOPIRAMATE 100 MG TAB PO SCH ×2 (09:30→20:43)
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
[2021-05-01] MEDS: cloNIDine HCL 0.2 MG TAB PO SCH (20:42)
[2021-05-01] MEDS: traZODone HCL 50 MG TAB PO SCH (20:43)
[2021-05-02] MEDS: LEVOTHYROXINE 75 MCG TAB PO SCH (06:01)
[2021-05-02] MEDS: TOPIRAMATE 100 MG TAB PO SCH ×2 (08:56→20:56)
[2021-05-02] MEDS: NICOTINE 14MG/24HR PATCH TRANSDERM SCH (08:56)
[2021-05-02] MEDS: GABAPENTIN 300 MG CAP PO SCH ×2 (08:57→20:55)
--- NOTE | 2021-05-02 11:20 | P.PN ---
Progress Note - Text Progress Note Date: 05/02/21 Interval History: Patient was seen resting in bed and wished to speak with the tag writer in her room despite 2 other patients present. The patient states that she would like to speak here regardless of the 2 other patients are present. The patient is currently not reporting any suicidal or homicidal ideation, intention, and/or plan. She is currently denying any auditory or visual hallucinations. She is not reporting any paranoia or other delusions at this time. The patient does acknowledge that a huge problem for her is her methamphetamine use. The patient however does tell this provider that, "I'm not going to tell you that I'm going to quit methamphetamines or that I want to quit methamphetamines. It is very hard for me because my whole entire family is filled with addicts and this is the way I cope with the relationships with my family." The patient expresses no desire at this time to quit her substance use despite the drugs taking a toll on her mental and physical health. She reports she regrets overdosing however states that she felt that it was the only way to cope at the time. Mental Status Exam: General Appearance: Patient appears to be stated age is alert, directable, and cooperative. Improved hygiene and grooming. Thin build with poor dentition. Behavior: Patient is calmly seated without any agitated behavior. Speech: Patient's speech is fluent and nonpressured. Mood/Affect: Mood is improving mildly, affect is congruent and constricted. Suicidality/Homicidality: Patient denies having any suicidal or homicidal ideation intent or plan. Perceptions: Patient denies any visual hallucinations and denies any auditory hallucinations Though content/process: There is no evidence of any delusional thought content and thought process is linear and goal-directed. Memory and concentration: AOX3, grossly intact for the purposes of this session Judgment and insight: Improving mildly Vital Signs Temp 97.2 F L 05/02/21 06:47 Pulse 49 L 05/02/21 06:47 Resp 12 05/02/21 06:47 BP 103/55 05/02/21 06:47 Pulse Ox 100 05/01/21 20:30 Assessment Acute Psychosis Methamphetamine use disorder Cannabis use disorder Nicotine dependence Major depressive disorder by history Seizure disorder by history Plan: -Patient continues to meet criteria for inpatient psychiatric admission for symptom stabilization and safety. Patient has signed adult voluntary form and medication consent and was placed in patient's chart. Patient signed a 72 hour notice for discharge yesterday at noon. -Medications: Continue Cymbalta 60 mg by mouth at bedtime for depression/neuropathy Continue gabapentin 600 mg by mouth twice a day for off label use for anxiety as well as for neuropathy Continue Topamax 200 mg by mouth twice a day for off label use for mood stabilization as well as seizure disorder Continue trazodone 50 mg daily at bedtime for insomnia Start Abilify 5 mg by mouth daily at bedtime for augmentation of antidepressant and mood stabilization Discontinue Catapres due to hypotension -When necessary Ativan and Haldol for agitation/aggression. -NRT - nicotine patch -SW on board for discharge planning. Encouraged the patient to participate in milieu.
[2021-05-02] MEDS: NICOTINE GUM (POLACRILEX) 2 MG GUM BUCCAL PRN (16:02)
[2021-05-02] MEDS: traZODone HCL 50 MG TAB PO SCH (20:56)
[2021-05-02] MEDS ORDERED: DULoxetine HCL 60 MG CAPSULE.DR PO SCH (21:00)
[2021-05-02] MEDS ORDERED: ARIPiprazole 5 MG TAB PO SCH (21:00)
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
[2021-05-03] MEDS: LEVOTHYROXINE 75 MCG TAB PO SCH (06:43)
[2021-05-03 06:56] VITALS: RESP 16; TEMP 97.6
[2021-05-03] MEDS: TOPIRAMATE 100 MG TAB PO SCH (08:21)
[2021-05-03] MEDS: GABAPENTIN 300 MG CAP PO SCH (08:21)
[2021-05-03] MEDS: NICOTINE 14MG/24HR PATCH TRANSDERM SCH (08:21)
[2021-05-03] MEDS: NICOTINE GUM (POLACRILEX) 2 MG GUM BUCCAL PRN ×2 (08:23→11:17)
[2021-05-03 10:21] VITALS: BP 75/43; PULSE 73
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
== END 2021-05-03 12:02 | disposition home or self-care (01) | DRG 885 ==
LOC: 3MHU 20:37
PROVIDERS: ADMIT Psychiatry & Neurology Psychiatry; ATTEND Psychiatry & Neurology Psychiatry
PROC: 5A1935Z Respiratory Ventilation, Less than 24 Consecutive Hours (ICD-10-PCS; principal; 2021-04-30)
PROC: 0BH17EZ Insertion of Endotracheal Airway into Trachea, Via Natural or Artificial Opening (ICD-10-PCS; 2021-04-30)
DX: F23 Brief psychotic disorder (principal); E03.9 Hypothyroidism, unspecified; R41.81 Age-related cognitive decline; R00.1 Bradycardia, unspecified; T46.5X2A Poisoning by other antihypertensive drugs, intentional self-harm, initial encounter; Z20.822 Contact with and (suspected) exposure to COVID-19; F12.10 Cannabis abuse, uncomplicated; G43.909 Migraine, unspecified, not intractable, without status migrainosus; F15.10 Other stimulant abuse, uncomplicated; F32.9 Major depressive disorder, single episode, unspecified; F17.210 Nicotine dependence, cigarettes, uncomplicated; F43.10 Post-traumatic stress disorder, unspecified; G40.909 Epilepsy, unspecified, not intractable, without status epilepticus; G47.00 Insomnia, unspecified; G62.9 Polyneuropathy, unspecified; M79.7 Fibromyalgia; Z79.890 Hormone replacement therapy; Z79.899 Other long term (current) drug therapy; Z85.41 Personal history of malignant neoplasm of cervix uteri; Z86.16 Personal history of COVID-19; Z91.51 Personal history of suicidal behavior; Z71.51 Drug abuse counseling and surveillance of drug abuser; Z88.6 Allergy status to analgesic agent; Z88.0 Allergy status to penicillin

== ENCOUNTER 2021-06-26 17:15 | Emergency (ER) | payer OTHER ==
[2021-06-26 17:30] VITALS: RESP 18; TEMP 97.8
--- NOTE | 2021-06-26 17:45 | ED ---
General Adult HPI - General Chief complaint: Fall Stated complaint: FALL, CHEST PAIN Time Seen by Provider: 06/26/21 17:16 Source: patient Mode of arrival: EMS Limitations: no limitations - History of Present Illness Initial comments: Dictation was produced using [employer] dictation software. please excuse any grammatical, word or spelling errors. Chief Complaint: 41-year-old female with alleged seizure disorder, fibromyalgia and psychiatric disease presents to the emergency department for chest pain after syncopal event History of Present Illness: Is a 41-year-old female she states she has multiple comorbidities. She states she was sitting on the single looking at her face again all the breakouts when she syncopized and fell on her chest. She has chest pain. Patient states that she has multiple syncopal events recently. She states she gets at least 20 syncopal events every month. Patient has left anterior chest pain. She states she fell landing on her left chest patient called EMS is brought to the emergency department. The ROS documented in this emergency department record has been reviewed and confirmed by me. Those systems with pertinent positive or negative responses have been documented in the HPI. All other systems are other negative and/or noncontributory. PHYSICAL EXAM: General Impression: Alert and oriented x3, not in acute distress HEENT: Normocephalic atraumatic, extra-ocular movements intact, pupils equal and reactive to light bilaterally, mucous membranes moist. Cardiovascular: Heart regular rate and rhythm Chest: Able to complete full sentences, no retractions, no tachypnea Abdomen: abdomen soft, non-tender, non-distended, no organomegaly Musculoskeletal: Pulses present and equal in all extremities, no peripheral edema Motor: no focal deficits noted Neurological: CN II-XII grossly intact, no focal motor or sensory deficits noted Skin: Intact with no visualized rashes Psych: Tearful, depressed ED course: 41-year-old female presents to the emergency department for chest pain after syncopal event. She says that she has 20 episodes of syncope throughout the month. Vital signs upon arrival are within acceptable limits. EKG is benign. There is no EKG abnormalities to cause syncope. Laboratory evaluation obtained. CBC and metabolic panel is unremarkable. Chest x-ray is unremarkable. Patient observed in emergency department for approximately 2 hours. Patient clinical stable. Patient be discharged. Patient denies any cardiac disease. No concerns for cardiac cause of syncope. Patient did not have a syncopal event Emergency department. Patient does have findings of chest condition. Patient be discharged. EKG interpretation: Ventricular rate 87, normal sinus rhythm,. Interval 144, QRS 80, QTC 471. No NM prolongation, no QTC prolongation, no ST or T-wave ch anges noted. Overall, this EKG is unremarkable - Related Data Home Medications Medication Instructions Recorded Confirmed Topiramate [Topamax] 200 mg PO BID 06/26/21 06/26/21 valACYclovir HCL [Valtrex] 1,000 mg PO DAILY 06/26/21 06/26/21 Previous Rx's Medication Instructions Recorded DULoxetine HCL [Cymbalta] 60 mg PO HS 30 Days capsule 05/03/21 Gabapentin [Neurontin] 600 mg PO BID 30 Days cap 05/03/21 Levothyroxine Sodium [Synthroid] 75 mcg PO DAILY 30 Days tab 05/03/21 Allergies Allergy/AdvReac Type Severity Reaction Status Date / Time aspirin Allergy Unknown Verified 06/26/21 18:23 ibuprofen Allergy Unknown Verified 06/26/21 18:23 Penicillins Allergy Unknown Verified 06/26/21 18:23 Review of Systems ROS Statement: Those systems with pertinent positive or pertinent negative responses have been documented in the HPI. ROS Other: All systems not noted in ROS Statement are negative. Past Medical History Past Medical History: Cancer, Fibromyalgia, Osteoarthritis (OA), Seizure Disorder, Thyroid Disorder Additional Past Medical History / Comment(s): Pt tested covid + on 09/21/[address] George's office. Other hx: MIgraines, chronic back pain, last seizure about 6 months ago, occasional edema legs/feet, hypothyroid, cervical cancer with treatment. History of Any Multi-Drug Resistant Organisms: MRSA Date of last positivie culture/infection: 2007 MDRO Source:: L knee Past Surgical History: Adenoidectomy, Section, Tubal Ligation Additional Past Surgical History / Comment(s): Procedure for cervical cancer/pt cannot recall type of procedure, D&C, lumbar epidurals Past Anesthesia/Blood Transfusion Reactions: Postoperative Nausea & Vomiting (PONV) Additional Past Anesthesia/Blood Transfusion Reaction / Comment(s): Occasional PONV Past Psychological History: Anxiety, Depression Smoking Status: Current some day smoker Past Alcohol Use History: None Reported Past Drug Use History: None Reported - Past Family History Father History Unknown: Yes Additional Family Medical History / Comment(s): Father is . Mother Family Medical History: No Reported History Additional Family Medical History / Comment(s): Mother is healthy General Exam Limitations: no limitations Course Vital Signs 06/26/21 17:17 Temperature 97.8 F Pulse Rate 89 Respiratory 18 Rate Blood Pressure 118/92 O2 Sat by Pulse 99 Oximetry Medical Decision Making - Lab Data Result diagrams: 06/26/21 18:36 06/26/21 18:36 Lab Results 06/26/21 06/26/21 Range/Units 18:36 18:36 WBC 7.7 (3.8-10.6) k/uL RBC 4.00 (3.80-5.40) m/uL Hgb 13.5 (11.4-16.0) gm/dL Hct 40.9 (34.0-46.0) % MCV 102.3 H (80.0-100.0) fL MCH 33.9 (25.0-35.0) pg MCHC 33.1 (31.0-37.0) g/dL RDW 13.0 (11.5-15.5) % Plt Count 146 L (150-450) k/uL MPV 7.6 Neutrophils % 65 % Lymphocytes % 26 % Monocytes % 5 % Eosinophils % 2 % Basophils % 0 % Neutrophils # 5.0 (1.3-7.7) k/uL Lymphocytes # 2.0 (1.0-4.8) k/uL Monocytes # 0.4 (0-1.0) k/uL Eosinophils # 0.1 (0-0.7) k/uL Basophils # 0.0 (0-0.2) k/uL Macrocytosis Slight Sodium 138 (137-145) mmol/L Potassium 4.6 (3.5-5.1) mmol/L Chloride 106 (98-107) mmol/L Carbon Dioxide 25 (22-30) mmol/L Anion Gap 7 mmol/L BUN 13 (7-17) mg/dL Creatinine 0.94 (0.52-1.04) mg/dL Est GFR (CKD-EPI)AfAm 86 (>60 ml/min/1.73 sqM) Est GFR (CKD-EPI)NonAf 75 (>60 ml/min/1.73 sqM) Glucose 90 (74-99) mg/dL Calcium 8.8 (8.4-10.2) mg/dL Disposition Clinical Impression: Chest wall contusion, Syncope Disposition: HOME SELF-CARE Condition: Good Instructions (If sedation given, give patient instructions): Syncope (ED), Costochondritis (ED) Is patient prescribed a controlled substance at d/c from ED?: No Referrals: Dewayne George MD [Primary Care Provider] - 1-2 days
[2021-06-26 18:57] LABS: Basophils % (A) 0 %; Calcium 8.8 mg/dL (8.4-10.2); Eosinophils # (A) 0.1 k/uL (0-0.7); Eosinophils % (A) 2 %; HCT 40.9 % (34.0-46.0); HGB 13.5 gm/dL (11.4-16.0); Lymphocytes % (A) 26 %; MCH 33.9 pg (25.0-35.0); MCHC 33.1 g/dL (31.0-37.0); MCV 102.3 fL (80.0-100.0); Macrocytosis Slight; Mean Platelet Volume 7.6; Monocytes # (A) 0.4 k/uL (0-1.0); Monocytes % (A) 5 %; Neutrophils % (A) 65 %; Platelet Count 146 k/uL (150-450); WBC 7.7 k/uL (3.8-10.6)
[2021-06-26 19:02] LABS: Potassium 4.6 mmol/L (3.5-5.1)
[2021-06-26] MEDS ORDERED: LIDOCAINE 5% PATCH TOPICAL STA (19:30)
[2021-06-26] MEDS ORDERED: ACETAMINOPHEN TAB 500 MG TAB PO STA (19:31)
--- NOTE | 2021-06-26 19:49 | XR ---
EXAMINATION TYPE: XR chest 2V DATE OF EXAM: 06/26/2021 COMPARISON: 04/30/2021 HISTORY: 41 years Female. STUDY INDICATION GIVEN: pain after fall . TECHNIQUE: PA and lateral chest radiographs IMPRESSION: No focal airspace disease, pneumothorax or pleural effusion. The cardiomediastinal silhouette is normal in appearance. No acute osseous abnormalities seen. Rightward curvature of the thoracolumbar spine was not seen on t he prior.
[2021-06-26 20:43] VITALS: BP 117/95; PULSE 71
== END 2021-06-26 20:05 | disposition home or self-care (01) ==
LOC: EC 17:15
DX: S20.212A Contusion of left front wall of thorax, initial encounter (principal); R55 Syncope and collapse; F17.200 Nicotine dependence, unspecified, uncomplicated; G43.909 Migraine, unspecified, not intractable, without status migrainosus; M79.7 Fibromyalgia; Z86.16 Personal history of COVID-19; M19.90 Unspecified osteoarthritis, unspecified site; Z88.5 Allergy status to narcotic agent; Z88.6 Allergy status to analgesic agent; Z88.0 Allergy status to penicillin; W01.198A Fall on same level from slipping, tripping and stumbling with subsequent striking against other object, initial encounter; Y92.002 Bathroom of unspecified non-institutional (private) residence as the place of occurrence of the external cause
CPT/HCPCS: 36415; 71046; 80048; 85025; 93005; 99284

== ENCOUNTER 2021-06-28 18:26 | Emergency (ER) | payer OTHER ==
[2021-06-28 18:41] VITALS: TEMP 98.9
[2021-06-28] MEDS ORDERED: SODIUM CHLORIDE 0.9% 1,000 ML IV STA (19:08)
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
[2021-06-28 20:06] LABS: Basophils % (A) 0 %; Eosinophils # (A) 0.2 k/uL (0-0.7); Eosinophils % (A) 3 %; HCT 37.1 % (34.0-46.0); HGB 12.5 gm/dL (11.4-16.0); Lymphocytes # (A) 1.9 k/uL (1.0-4.8); Lymphocytes % (A) 24 %; MCH 34.8 pg (25.0-35.0); MCHC 33.8 g/dL (31.0-37.0); MCV 102.8 fL (80.0-100.0); Macrocytosis Slight; Mean Platelet Volume 7.8; Monocytes # (A) 0.3 k/uL (0-1.0); Monocytes % (A) 3 %; Neutrophils # (A) 5.4 k/uL (1.3-7.7); Neutrophils % (A) 68 %; Platelet Count 124 k/uL (150-450); RBC 3.61 m/uL (3.80-5.40); RDW 12.5 % (11.5-15.5)
[2021-06-28 20:15] LABS: ALT 20 U/L (4-34); AST 23 U/L (14-36); African American GFR (CKD) >90 (>60 ml/min/1.73 sqM); Albumin 3.3 g/dL (3.5-5.0); Alkaline Phosphatase 45 U/L (38-126); Anion Gap 8 mmol/L; Blood Urea Nitrogen 16 mg/dL (7-17); Calcium 8.6 mg/dL (8.4-10.2); Carbon Dioxide 21 mmol/L (22-30); Chloride 111 mmol/L (98-107); Glucose 96 mg/dL (74-99); Lipase 135 U/L (23-300); Non-African American GFR(CKD) >90 (>60 ml/min/1.73 sqM); Potassium 3.7 mmol/L (3.5-5.1); Sodium 140 mmol/L (137-145); Total Bilirubin 0.5 mg/dL (0.2-1.3); Total Protein 6.2 g/dL (6.3-8.2)
[2021-06-28 20:27] LABS: INR 0.9 (<1.2); Partial Thromboplastin Time 25.4 sec (22.0-30.0); Prothrombin Time 10.2 sec (9.0-12.0)
[2021-06-28] MEDS ORDERED: LORazepam 2 MG/ML INJ IV STA (20:50)
--- NOTE | 2021-06-28 20:51 | XR ---
EXAMINATION TYPE: XR chest 2V DATE OF EXAM: 06/28/2021 8:29 PM COMPARISON:Multiple radiographs, with the most recent on 06/26/2021 TECHNIQUE: Frontal and lateral views of the chest. CLINICAL INDICATION:Female, 41 years old with history of Chest Pain; FINDINGS: Lungs/Pleura: There is no evidence of pleural effusion, focal consolidation, or pneumothorax. Pulmonary vascularity: Unremarkable. Heart/mediastinum: Cardiomediastinal silhouette is unremarkable. Musculoskeletal:No acute osseous pathology. IMPRESSION: No acute cardiopulmonary disease/process.
--- NOTE | 2021-06-28 22:26 | CT ---
EXAMINATION TYPE: CT brain wo con DATE OF EXAM: 06/28/2021 COMPARISON: 04/29/2021 HISTORY: Fall. Altered mental status. CT DLP: 1108.6 mGycm Automated exposure control for dose reduction was used. Images obtained of the brain without contrast. Ventricles and sulci appear normal. There is no mass effect or midline shift. There is no evidence of intracranial hemorrhage. Calvarium is intact. The skull base is intact. There is normal aeration of the mastoid sinuses. IMPRESSION: Negative unenhanced head CT scan.
--- NOTE | 2021-06-28 22:30 | CT ---
EXAMINATION TYPE: CT chest angio for PE DATE OF EXAM: 06/28/2021 COMPARISON: None HISTORY: Elevated d-dimer and chest pain. CT DLP: 283.4 mGycm Automated exposure control for dose reduction was used. CONTRAST: Performed with IV Contrast, patient injected with 100ml mL of Isovue 370. Images obtained from the thoracic inlet to the diaphragm with IV contrast. There are 3-D postprocess images. There is no mediastinal adenopathy. There are no hilar masses. Thoracic aorta is intact. There is no aneurysm or dissection. There is normal contrast opacification of the pulmonary arteries. There are no filling defects. Heart size is normal. There is no pericardial effusion. The lungs are clear of infiltrate. There is n o evidence of a pulmonary mass. There is no pleural effusion. Thoracic spine is intact. There is no c ompression fracture. Sternum is intact. IMPRESSION: Negative CT angiogram of the chest. No evidence of pulmonary embolism.
[2021-06-28 23:19] VITALS: BP 111/76; PULSE 67; RESP 13
== END 2021-06-29 04:46 | disposition home or self-care (01) ==
LOC: EC 18:26
DX: M94.0 Chondrocostal junction syndrome [Tietze] (principal); Z88.6 Allergy status to analgesic agent; Z88.0 Allergy status to penicillin
CPT/HCPCS: 36415; 93005; 85379; 80053; 83690; 83735; 84484; 85025; 85610; 85730; 71046; 70450; 71275; 99285; 96374; J2060; Q9967

== ENCOUNTER 2021-07-03 14:02 | Emergency (ER) | payer OTHER ==
[2021-07-03 14:11] VITALS: RESP 18; TEMP 98.2
[2021-07-03] MEDS ORDERED: KETOROLAC 30 MG/ML 1 ML VIAL IVP STA (14:40)
--- NOTE | 2021-07-03 14:45 | ED ---
General Adult HPI - General Chief complaint: Chest Pain Stated complaint: chest & rib pain Time Seen by Provider: 07/03/21 14:05 Source: patient, EMS, RN notes reviewed, old records reviewed Mode of arrival: EMS Limitations: no limitations - History of Present Illness Initial comments: This is a 41-year-old female who presents emergency Department complaining of left-sided rib pain after she had fallen a few days ago. Patient states she's been to the ER twice before. Patient denies any drug use for 21 years. Patient denies getting a CAT scan while she was here. In both cases patient lied she was here for overdose in April and she did get a CAT scan on her last visit here. Patient is requesting pain meds and she states she can take opiates. Patient denies any new injury since her last visit. - Related Data Home Medications Medication Instructions Recorded Confirmed Topiramate [Topamax] 200 mg PO BID 06/26/21 07/03/21 Gabapentin 600 mg PO BID 06/28/21 07/03/21 cloNIDine HCL 0.2 mg PO DAILY PRN 07/03/21 07/03/21 traZODone HCL 50 mg PO HS 07/03/21 07/03/21 Previous Rx's Medication Instructions Recorded DULoxetine HCL [Cymbalta] 60 mg PO HS 30 Days capsule 05/03/21 Levothyroxine Sodium [Synthroid] 75 mcg PO DAILY 30 Days tab 05/03/21 Allergies Allergy/AdvReac Type Severity Reaction Status Date / Time aspirin Allergy Unknown Verified 07/03/21 15:14 ibuprofen Allergy Unknown Verified 07/03/21 15:14 Penicillins Allergy Unknown Verified 07/03/21 15:14 Review of Systems ROS Statement: Those systems with pertinent positive or pertinent negative responses have been documented in the HPI. ROS Other: All systems not noted in ROS Statement are negative. Past Medical History Past Medical History: Cancer, Fibromyalgia, Osteoarthritis (OA), Seizure Disorder, Thyroid Disorder Additional Past Medical History / Comment(s): Pt tested covid + on 09/21/[address] George's office. Other hx: MIgraines, chronic back pain, last seizure about 6 months ago, occasional edema legs/feet, hypothyroid, cervical cancer with treatment. History of Any Multi-Drug Resistant Organisms: MRSA Date of last positivie culture/infection: 2007 MDRO Source:: L knee Past Surgical History: Adenoidectomy, Section, Tubal Ligation Additional Past Surgical History / Comment(s): Procedure for cervical cancer/pt cannot recall type of procedure, D&C, lumbar epidurals Past Anesthesia/Blood Transfusion Reactions: Postoperative Nausea & Vomiting (PONV) Additional Past Anesthesia/Blood Transfusion Reaction / Comment(s): Occasional PONV Past Psychological History: Anxiety, Depression Smoking Status: Current some day smoker Past Alcohol Use History: None Reported Past Drug Use History: None Reported - Past Family History Father History Unknown: Yes Additional Family Medical History / Comment(s): Father is . Mother Family Medical History: No Reported History Additional Family Medical History / Comment(s): Mother is healthy General Exam - General Exam Comments Initial Comments: GENERAL: Patient is well-developed and well-nourished. Patient is nontoxic and well- hydrated and is in mild distress. ENT: Neck is soft and supple. No significant lymphadenopathy is noted. Oropharynx is clear. Moist mucous membranes. Neck has full range of motion without eliciting any pain. EYES: The sclera were anicteric and conjunctiva were pink and moist. Extraocular movements were intact and pupils were equal round and reactive to light. Eyelids were unremarkable. PULMONARY: Unlabored respirations. Good breath sounds bilaterally. No audible rales rhonchi or wheezing was noted. CARDIOVASCULAR: There is a regular rate and rhythm without any murmurs gallops or rubs. Patient has some rib pain on the left lateral upper ribs there is no marked bruising in the area. There is no swelling. ABDOMEN: Soft and nontender with normal bowel sounds. SKIN: Skin is clear with no lesions or rashes and otherwise unremarkable. NEUROLOGIC: Patient is alert and oriented x3. Cranial nerves II through XII are grossly intact. Motor and sensory are also intact. Normal speech, volume and content. Symmetrical smile. MUSCULOSKELETAL: Normal extremities with adequate strength and full range of motion. LYMPHATICS: No significant lymphadenopathy is noted PSYCHIATRIC: Normal psychiatric evaluation. Limitations: no limitations Course Vital Signs 07/03/21 14:03 Temperature 98.2 F Pulse Rate 86 Respiratory 18 Rate Blood Pressure 127/80 O2 Sat by Pulse 96 Oximetry Medical Decision Making - Medical Decision Making EKG shows normal sinus rhythm at 86 bpm MD interval 140 QRS is 72 QT interval 360 QTC is 430 Chest x-ray shows no acute abnormality. Patient received Toradol because she stated that she normally can take ibuprofen but she thinks it may dehydrated her. When I went back into the room to reevaluate her after the Toradol and she was sleeping soundly. When I woke the patient up she continued to ask for pain medications and specifically narcotics. Disposition Clinical Impression: Chest wall contusion, Drug-seeking behavior Disposition: HOME SELF-CARE Instructions (If sedation given, give patient instructions): Contusion in Adults (ED) Is patient prescribed a controlled substance at d/c from ED?: No Referrals: Dewayne George MD [Primary Care Provider] - 1-2 days Time of Disposition: 15:35
--- NOTE | 2021-07-03 15:14 | XR ---
EXAMINATION TYPE: XR chest 2V DATE OF EXAM: 07/03/2021 COMPARISON: Chest x-ray 06/28/2021 HISTORY: Chest x-ray 06/28/2021 TECHNIQUE: Frontal and lateral views of the chest are obtained. FINDINGS: There is no focal air space opacity, pleural effusion, or pneumothorax seen. The cardiac silhouette size is within normal limits. The osseous structures are intact. There are overlying maryjo ds. IMPRESSION: No acute cardiopulmonary process.
[2021-07-03 16:06] VITALS: BP 121/70; PULSE 78
== END 2021-07-03 16:06 | disposition home or self-care (01) ==
LOC: EC 14:02
DX: S20.212A Contusion of left front wall of thorax, initial encounter (principal); F17.200 Nicotine dependence, unspecified, uncomplicated; Z86.16 Personal history of COVID-19; M19.90 Unspecified osteoarthritis, unspecified site; M79.7 Fibromyalgia; Z79.899 Other long term (current) drug therapy; Z88.6 Allergy status to analgesic agent; Z88.0 Allergy status to penicillin; W19.XXXA Unspecified fall, initial encounter
CPT/HCPCS: 93005; 71046; 96374; 99284; J1885

== ENCOUNTER 2022-01-18 22:08 | Emergency (ER) | payer OTHER ==
[2022-01-18 22:31] VITALS: BP 127/78; PULSE 84; RESP 16; TEMP 98.7
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
== END 2022-01-19 02:36 | disposition home or self-care (01) ==
LOC: EC 22:08
DX: F39 Unspecified mood [affective] disorder (principal); F17.200 Nicotine dependence, unspecified, uncomplicated; Z88.6 Allergy status to analgesic agent; Z88.0 Allergy status to penicillin
CPT/HCPCS: 82075

== ENCOUNTER 2022-01-28 18:55 | Inpatient (IN) | payer MEDICAID, OTHER ==
--- NOTE | 2022-01-28 20:26 | ED ---
General Adult HPI - General Source: patient Mode of arrival: ambulatory Limitations: no limitations <Pollo Jordan - Last Filed: 01/28/22 20:26> <Lamine Torres - Last Filed: 01/29/22 03:26> - General Chief complaint: Psychiatric Symptoms Stated complaint: petition Time Seen by Provider: 01/28/22 20:00 - History of Present Illness Initial comments: Dictation was produced using Divided dictation software. please excuse any grammatical, word or spelling errors. Chief Complaint: Patient is a 41-year-old female brought in by police for psychiatric evaluation History of Present Illness: 41-year-old female she was brought in by law enforcement. Patient was brought from home. There is a addition documented on behalf of the patient stating that patient is having symptoms of psychiatric illness. According to the petition patient has not been sleeping having manic episodes and not care for self. Patient does not know why she is here in the emergency room today. She states repeatedly that she does not want her family members as her conservator. Patient denies any suicidal or homicidal ideation. Denies any auditory hallucinations. The ROS documented in this emergency department record has been reviewed and confirmed by me. Those systems with pertinent positive or negative responses have been documented in the HPI. All other systems are other negative and/or noncontributory. PHYSICAL EXAM: General Impression: Alert and oriented x3, not in acute distress HEENT: Normocephalic atraumatic, extra-ocular movements intact, pupils equal and reactive to light bilaterally, mucous membranes moist. Cardiovascular: Heart regular rate and rhythm Chest: Able to complete full sentences, no retractions, no tachypnea Musculoskeletal: Pulses present and equal in all extremities, no peripheral edema Motor: no focal deficits noted Neurological: CN II-XII grossly intact, no focal motor or sensory deficits noted Skin: Intact with no visualized rashes Psych: Aggressive posturing ED course: 41-year-old female brought in to the emergency Department for EPS evaluation and upon arrival are within acceptable limits. (Pollo Jordan) - Related Data Home Medications Medication Instructions Recorded Confirmed Topiramate [Topamax] 200 mg PO BID 06/26/21 01/28/22 Gabapentin 600 mg PO BID 06/28/21 01/28/22 cloNIDine HCL 0.2 mg PO HS 07/03/21 01/28/22 traZODone HCL 50 mg PO HS 07/03/21 01/28/22 QUEtiapine [SEROquel] 50 mg PO HS 01/28/22 01/28/22 Previous Rx's Medication Instructions Recorded DULoxetine HCL [Cymbalta] 60 mg PO HS 30 Days capsule 05/03/21 Levothyroxine Sodium [Synthroid] 75 mcg PO DAILY 30 Days tab 05/03/21 Allergies Allergy/AdvReac Type Severity Reaction Status Date / Time aspirin Allergy Unknown Verified 01/28/22 22:29 ibuprofen Allergy Unknown Verified 01/28/22 22:29 Penicillins Allergy Unknown Verified 01/28/22 22:29 Review of Systems ROS Other: All systems not noted in ROS Statement are negative. <Pollo Jordan - Last Filed: 01/28/22 20:26> ROS Other: All systems not noted in ROS Statement are negative. <Lamine Torres - Last Filed: 01/29/22 03:26> ROS Statement: Those systems with pertinent positive or pertinent negative responses have been documented in the HPI. Past Medical History Past Medical History: Cancer, Fibromyalgia, Osteoarthritis (OA), Seizure Disorder, Thyroid Disorder Additional Past Medical History / Comment(s): Pt tested covid + on 09/21/[address] George's office. Other hx: MIgraines, chronic back pain, last seizure about 6 months ago, occasional edema legs/feet, hypothyroid, cervical cancer with treatment. History of Any Multi-Drug Resistant Organisms: MRSA Date of last positivie culture/infection: 2007 MDRO Source:: L knee Past Surgical History: Adenoidectomy, Section, Tubal Ligation Additional Past Surgical History / Comment(s): Procedure for cervical cancer/pt cannot recall type of procedure, D&C, lumbar epidurals Past Anesthesia/Blood Transfusion Reactions: Postoperative Nausea & Vomiting (PONV) Additional Past Anesthesia/Blood Transfusion Reaction / Comment(s): Occasional PONV Past Psychological History: Anxiety, Depression Smoking Status: Current some day smoker Past Alcohol Use History: None Reported Past Drug Use History: None Reported - Past Family History Father History Unknown: Yes Additional Family Medical History / Comment(s): Father is . Mother Family Medical History: No Reported History Additional Family Medical History / Comment(s): Mother is healthy <Pollo Jordan - Last Filed: 01/28/22 20:26> General Exam Limitations: no limitations <Pollo Jordan - Last Filed: 01/28/22 20:26> Limitations: altered mental status General appearance: alert, in no apparent distress Head exam: Present: atraumatic, normocephalic, normal inspection Eye exam: Present: normal appearance, PERRL, EOMI. Absent: scleral icterus, conjunctival injection, periorbital swelling ENT exam: Present: normal exam, mucous membranes moist Neck exam: Present: normal inspection. Absent: tenderness, meningismus, lymphadenopathy Respiratory exam: Present: normal lung sounds bilaterally. Absent: respiratory distress, wheezes, rales, rhonchi, stridor Cardiovascular Exam: Present: regular rate, normal rhythm, normal heart sounds. Absent: systolic murmur, diastolic murmur, rubs, gallop, clicks GI/Abdominal exam: Present: soft, normal bowel sounds. Absent: distended, tenderness, guarding, rebound, rigid Extremities exam: Present: normal inspection, full ROM, normal capillary refill. Absent: tenderness, pedal edema, joint swelling, calf tenderness Back exam: Present: normal inspection Neurological exam: Present: alert, oriented X3, CN II-XII intact Psychiatric exam: Present: normal affect, normal mood Skin exam: Present: warm, dry, intact, normal color. Absent: rash <Lamine Torres - Last Filed: 01/29/22 03:26> Course <Lamine Torres - Last Filed: 01/29/22 03:26> Vital Signs 01/28/22 01/28/22 19:48 20:51 Temperature 98.1 F Pulse Rate 107 H 102 H Respiratory 16 Rate Blood Pressure 128/83 117/68 O2 Sat by Pulse 98 Oximetry - Reevaluation(s) Reevaluation #1: 01/29/22 03:25 Medical record is reviewed (Lamine Torres) Reevaluation #2: 01/29/22 03:25 Medical clear for psychiatric evaluation (Lamine Torres) Medical Decision Making <Lamine Torres - Last Filed: 01/29/22 03:26> - Medical Decision Making 41 female to the ER today for evaluation, patient having yola with psychosis, patient will be admitted for psychiatric evaluation and treatment (Lamine Torres) Disposition <Pollo Jordan - Last Filed: 01/28/22 20:26> Is patient prescribed a controlled substance at d/c from ED?: No <Lamine Torres - Last Filed: 01/29/22 03:26> Clinical Impression: Acute psychosis, Mood disorder, Major depressive disorder, PTSD (post-traumatic stress disorder), Drug-induced psychotic disorder Disposition: TRANSFER TO PSYCH HOSP/UNIT Condition: Fair Referrals: Dewayne George MD [Primary Care Provider] - 1-2 days
[2022-01-28] MEDS ORDERED: ACETAMINOPHEN TAB 500 MG TAB PO STA (21:06)
[2022-01-29] MEDS ORDERED: MAG HYDROX/AL HYDROX/SIMETH 30 ML CUP PO PRN (05:02)
[2022-01-29] MEDS ORDERED: MAGNESIUM HYDROXIDE 2,400 MG/10 ML CUP PO PRN (05:02)
[2022-01-29] MEDS ORDERED: LORazepam 1 MG TAB PO PRN (05:08)
[2022-01-29] MEDS ORDERED: LORazepam 2 MG/ML INJ IM PRN (05:08)
[2022-01-29] MEDS ORDERED: haloperidoL 5 MG TAB PO PRN (05:09)
[2022-01-29] MEDS ORDERED: HALOPERIDOL LACTATE 5 MG/ML 1 ML VIAL IM PRN (05:09)
[2022-01-29] MEDS ORDERED: GABAPENTIN 300 MG CAP PO SCH (09:00)
[2022-01-29] MEDS: LEVOTHYROXINE 75 MCG TAB PO SCH (09:24)
[2022-01-29] MEDS: NICOTINE 14MG/24HR PATCH TRANSDERM SCH (09:25)
[2022-01-29] MEDS: ACETAMINOPHEN TAB 325 MG TAB PO PRN (10:45)
--- NOTE | 2022-01-29 13:49 | P.HP ---
Psychiatric H&P - . H&P Date: 01/29/22 History & Physical: Allergies Allergy/AdvReac Type Severity Reaction Status Date / Time aspirin Allergy Unknown Verified 01/28/22 22:29 ibuprofen Allergy Unknown Verified 01/28/22 22:29 Penicillins Allergy Unknown Verified 01/28/22 22:29 Vital Signs Temp 97.2 F L 01/29/22 06:00 Pulse 80 01/29/22 06:00 Resp 15 01/29/22 06:00 BP 127/84 01/29/22 06:00 Pulse Ox 100 01/29/22 06:00 FiO2 Intake & Output 01/28/22 01/29/22 01/29/22 18:59 06:59 18:59 Weight 57.153 kg Laboratory Last Values Coronavirus (PCR) Not Detected (Not Detectd) 01/29/22 03:25 01/29/22 13:49 IDENTIFYING DATA: Patient is a , unemployed, 40-year-old female with significant history of methamphetamine use disorder, thyroid disorder, and seizure disorder who presents to the hospital on 01/28/2022 HPI: Patient presented to the hospital on 01/29/2022, brought into the hospital under petition and certification for yola and acute psychosis. The petition was filled out by the patient's sister who wrote that "the patient believes that people are hiding her phone, stealing her social security, breaking in and raping her. She also reports that everyone is out to get her and accuses people of doing and being things. She is also noted to have extreme weight loss, not bathing, and not attending to her physical needs. She is not sleeping. Fu hersuzan, the [place] police responded to a call at the [facility] where she vandalized the room by ripping off the wallpaper. She wrote all over the stark and also stick herself with syringes. She reported concerns that people were coming out of the pictures." Upon admission into the psychiatric unit, the patient is vehemently denying any of these events. She reports that it is her family that is mentally ill and needs to be assessed. She does admit to recent methamphetamine use approximate 5 days prior to this admission. However, the patient does not believe that methamphetamine use is related to her psychiatric presentation. She has very poor insight and judgment. The patient is currently denying any suicidal or homicidal ideation, intention, and/or plan. She denies any auditory or visual hallucinations. She does admit to paranoid thoughts. She states that her family has been stealing her social security and that is the reason why they want her admitted into the psychiatric unit. She also states that Brandon Reece is good friends with her mother and that is why she is here against her will on a court pickup order. The patient reports that she uses methamphetamines in order to address her back pain. She does not find any issue with her methamphetamine use. She reports that she sometimes uses methamphetamines in order to stay awake as she is currently homeless and needs to protect herself. Furthermore, the patient states that the methamphetamines "aren't so bad because Cymbalta and caffeine make me feel like I'm on methamphetamines anyway." The patient is demanding discharge. A second clinical certificate has been filled out for mental health treatment. PAST PSYCHIATRIC HISTORY: Patient has a history of depression, methamphetamine abuse, and cannabis abuse. She has had previous trials of Seroquel, Cymbalta, trazodone, Topamax, and Catapres. The patient was last hospitalized on our psychiatric unit for 3 days in May 2021. The patient has reportedly not followed up in the outpatient setting. Patient denies any prior attempts at suicide. PMH: Past Medical History: Cancer, Fibromyalgia, Osteoarthritis (OA), Seizure Disorder, Thyroid Disorder Additional Past Medical History / Comment(s): Pt tested covid + on 09/21/[address] George's office. Other hx: MIgraines, chronic back pain, last seizure about 6 months ago, occasional edema legs/feet, hypothyroid, cervical cancer with treatment. History of Any Multi-Drug Resistant Organisms: MRSA Date of last positivie culture/infection: 2007 MDRO Source:: L knee Past Surgical History: Adenoidectomy, Section, Tubal Ligation Additional Past Surgical History / Comment(s): Procedure for cervical cancer/pt cannot recall type of procedure, D&C, lumbar epidurals Past Anesthesia/Blood Transfusion Reactions: Postoperative Nausea & Vomiting (PONV) Additional Past Anesthesia/Blood Transfusion Reaction / Comment(s): Occasional PONV Past Psychological History: Anxiety, Depression Smoking Status: Current some day smoker Past Alcohol Use History: None Reported Past Drug Use History: None Reported ALLERGIES: Aspirin, ibuprofen, penicillin CHEMICAL DEPENDENCY HISTORY: The patient engages in methamphetamine abuse and cannabis abuse. She reports that she last used methamphetamines 5 days prior to this admission. She reports that she uses marijuana on occasion. She denies any other drug use at this time. However, the patient is fixated on pain management and is requesting stronger narcotic medications. FAMILY PSYCHIATRIC/SUBSTANCE USE HISTORY: The patient insists that her sister and mother are "bipolar schizophrenics." SOCIAL HISTORY:The patient has undergone significant trauma. In 2002, the patient experienced a stillbirth of her child. Furthermore, her in 2004.'s in between 2002 and 2004 she has had numerous grandparents as well. The patient is now . She is currently unemployed. The patient has spent some time living in [place] prior to returning to [place]. MENTAL STATUS EXAM: General Appearance: Patient appears to be stated age is alert, difficult to direct, but attempts to cooperate. Patient appears to have very poor hygiene and grooming. Thin build. Behavior: Patient displays psychomotor agitation. Speech: Patient's speech is incoherent at times, nonsensical, repetitive. Mood/Affect: Patient reports their mood is "upset," affect is congruent and t earful. Suicidality/Homicidality: Patient denies any suicidal or homicidal ideation. Perceptions: Patient denies any visual hallucinations and denies any auditory hallucinations Though content/process: Patient does endorse some paranoia. Memory and concentration: AOX3, grossly intact for the purposes of this session. Concentration is grossly poor. Judgment and insight: Very poor. STRENGTHS/WEAKNESSES: Strength is that the patient's family appears to be supportive. Weakness is that the patient engages in polysubstance abuse and is pre-contemplative regarding her use. INTELLECT: Below average to average IMPRESSIONS: Bipolar disorder, unspecified Methamphetamine use disorder Cannabis use disorder Nicotine dependence PLAN: -Patient is admitted under involuntary status to MHU for stabilization of psychiatric symptoms and safety. A second certification was completed and along with petition will be filed for court. -Medications : Will start patient on Cymbalta 60 mg by mouth twice a day for depression Abilify 10 mg by mouth daily with plans to transition her to Abilify maintena due to psychosis Gabapentin 600 mg by mouth 3 times a day for off label use for anxiety and for neuropathic pain -Ativan and Haldol PRN for agitation/aggression -Patient was counselled on substance abuse however is pre-contemplative -Patient was informed of the risks, benefits and side effects of the medication and patient verbally consented to taking the medications. Patient signed med consent form and was placed in chart. -Internal Medicine consult to perform medical evaluation and physical. -NRT - nicotine patch -SW on board for discharge planning. Encourage patient to participate in groups to work on coping skills. 01/29/22 13:49
[2022-01-29] MEDS: GABAPENTIN 300 MG CAP PO SCH ×2 (16:05→21:46)
[2022-01-29] MEDS ORDERED: DULoxetine HCL 30 MG CAPSULE.DR PO SCH (21:00)
[2022-01-29] MEDS: DULoxetine HCL 60 MG CAPSULE.DR PO SCH (21:46)
[2022-01-30] MEDS: LEVOTHYROXINE 75 MCG TAB PO SCH (06:28)
[2022-01-30] MEDS ORDERED: ARIPiprazole 10 MG TAB PO SCH (09:00)
--- NOTE | 2022-01-30 09:40 | P.CONS ---
History of Present Illness - Reason for Consult Consult date: 01/30/22 medical eval - History of Present Illness Cordelia Reid is a 41 yo F with PMH of bipolar disorder, polysubstance use, current methamphetamine abuse, currently homeless, hypothyroidism. She was brought to the hospital by police on a petition as her family was concerned that she had been exhibiting bizarre behavior and thought people were breaking into her house. She states she has barely slept in the past week and has been using methamphetamine recently. She had apparently vandalized a hotel room as well prior to her admission. She denies any problems today, states she feels fine and is demanding discharge. No chest pain, shortness of breath, headache, fever, chills. Review of Systems All systems: negative Constitutional: Reports malaise, Denies chills, Denies fever Eyes: denies blurred vision, denies pain Ears, nose, mouth and throat: Denies headache, Denies sore throat Cardiovascular: Denies chest pain, Denies shortness of breath Respiratory: Denies cough Gastrointestinal: Denies abdominal pain, Denies diarrhea, Denies nausea, Denies vomiting Genitourinary: Denies dysuria, Denies hematuria Musculoskeletal: Denies myalgias Integumentary: Denies pruritus, Denies rash Neurological: Denies numbness, Denies weakness Psychiatric: Reports as per HPI, Reports difficulty concentrating, Denies anxiety, Denies depression Endocrine: Denies fatigue, Denies weight change Past Medical History Past Medical History: Cancer, Fibromyalgia, Osteoarthritis (OA), Seizure Disorder, Thyroid Disorder Additional Past Medical History / Comment(s): Pt tested covid + on 09/21/[address] George's office. Other hx: MIgraines, chronic back pain, occasional edema legs/feet, hypothyroid, cervical cancer with treatment. History of Any Multi-Drug Resistant Organisms: MRSA Year Discovered:: 2007 MDRO Source:: L knee Past Surgical History: Adenoidectomy, Section, Tubal Ligation Additional Past Surgical History / Comment(s): Procedure for cervical cancer/pt cannot recall type of procedure, D&C, lumbar epidurals Past Anesthesia/Blood Transfusion Reactions: Postoperative Nausea & Vomiting (PONV) Additional Past Anesthesia/Blood Transfusion Reaction / Comm: Occasional PONV Smoking Status: Current some day smoker - Past Family History Father History Unknown: Yes Additional Family Medical History / Comment(s): Father is . Mother Family Medical History: No Reported History Additional Family Medical History / Comment(s): Mother is healthy Medications and Allergies Home Medications Medication Instructions Recorded Confirmed Type DULoxetine HCL [Cymbalta] 60 mg PO HS 30 Days capsule 05/03/21 01/29/22 Rx Levothyroxine Sodium [Synthroid] 75 mcg PO DAILY 30 Days tab 05/03/21 01/29/22 Rx Topiramate [Topamax] 200 mg PO BID 06/26/21 01/29/22 History Gabapentin 600 mg PO BID 06/28/21 01/29/22 History cloNIDine HCL 0.2 mg PO HS 07/03/21 01/29/22 History traZODone HCL 50 mg PO HS 07/03/21 01/29/22 History QUEtiapine [SEROquel] 50 mg PO HS 01/28/22 01/29/22 History Allergies Allergy/AdvReac Type Severity Reaction Status Date / Time aspirin Allergy Unknown Verified 01/28/22 22:29 ibuprofen Allergy Unknown Verified 01/28/22 22:29 Penicillins Allergy Unknown Verified 01/28/22 22:29 Physical Exam Vitals: Vital Signs Temp Pulse Resp BP Pulse Ox 01/30/22 06:48 97.4 F L 65 16 114/73 99 General: well developed, well nourished female in NAD HEENT: NC/AT, mmm Neck: supple, no JVD or thyromegaly CV: RRR, no murmur Lungs: Normal effort, clear throughout Abd: soft, nontender, non distended Neuro: alert and oriented x3, no focal deficit Psych: impaired insight and judgement, affect agitated Assessment and Plan Plan: 1. Bipolar disorder with moderate yola. Management per psychiatry 2. Polysubstance abuse. Cessation counseling today 3. Hypothyroidism. Continue synthroid
[2022-01-30] MEDS: DULoxetine HCL 60 MG CAPSULE.DR PO SCH ×2 (10:58→21:01)
[2022-01-30] MEDS: NICOTINE 14MG/24HR PATCH TRANSDERM SCH (10:58)
[2022-01-30] MEDS: GABAPENTIN 300 MG CAP PO SCH ×3 (10:59→21:02)
[2022-01-30] MEDS: ACETAMINOPHEN TAB 325 MG TAB PO PRN (11:01)
[2022-01-30] MEDS ORDERED: LIDOCAINE 2% GEL 30 ML TUBE TOPICAL PRN (11:53)
[2022-01-30 12:21] VITALS: BMI 21.6
--- NOTE | 2022-01-30 12:35 | P.PN ---
Progress Note - Text Progress Note Date: 01/30/22 Interval History: Patient was seen resting in bed and was directable and refused to get out of bed to speak with advertising writer. The patient with her primary concern at this time is her back pain. She is requesting stronger medication to address this. Furthermore, the patient has requested that she be discharged so that she may go to the emergency department in order to have her back pain appropriately addressed. Despite this, the patient has been able to ambulate and has been seeing out of her room. She makes primarily athletic to herself in her room. She is currently denying any suicidal or homicidal ideation, intention, and/or plan. She is denying any auditory or visual hallucinations. She has been adherent with her medications and is not reporting any significant side effects at this time. Mental Status Exam: General Appearance: Patient appears to be stated age is alert, not directable, and mostly uncooperative.. Behavior: Patient is lying down in bed with poor eye contact. Speech: Patient's speech is minimal in conversation. Mood/Affect: Mood is I'm in pain." Affect is somnolent and oppositional. Suicidality/Homicidality: Patient denies having any suicidal or homicidal ideation intent or plan. Perceptions: Patient denies any visual hallucinations and denies any auditory hallucinations Though content/process: There is no evidence of any delusional thought content and thought process is linear and goal-directed. Strong fixation on pain reji gement. Memory and concentration: AOX3, grossly intact for the purposes of this session Judgment and insight: Poor Vital Signs Temp 97.4 F L 01/30/22 06:48 Pulse 65 01/30/22 06:48 Resp 16 01/30/22 06:48 BP 114/73 01/30/22 06:48 Pulse Ox 99 01/30/22 06:48 FiO2 Intake & Output 01/29/22 01/30/22 01/30/22 18:59 06:59 18:59 Weight 57.153 kg Assessment Bipolar disorder, unspecified Methamphetamine use disorder Cannabis use disorder Nicotine dependence Plan: -Patient continues to meet criteria for inpatient psychiatric admission for symptom stabilization and safety. The patient has been petitioned and certified. -Medications: Increase Abilify to 15 mg by mouth daily for mood stabilization/psychosis. Plan to transition to Abilify maintena due to history of nonadherence with treatment. Continue Cymbalta 60 mg by mouth twice a day for depression/neuropathic pain Continue gabapentin 600 mg by mouth 3 times a day for off label use for anxiety and for neuropathic pain We'll start lidocaine topical gel when necessary for pain -When necessary Ativan and Haldol for agitation/aggression. -NRT - nicotine patch -SW on board for discharge planning. Encouraged the patient to participate in milieu.
[2022-01-31] MEDS: LEVOTHYROXINE 75 MCG TAB PO SCH (06:06)
[2022-01-31] MEDS: NICOTINE 14MG/24HR PATCH TRANSDERM SCH (08:52)
[2022-01-31] MEDS: DULoxetine HCL 60 MG CAPSULE.DR PO SCH ×2 (08:52→20:42)
[2022-01-31] MEDS: GABAPENTIN 300 MG CAP PO SCH ×3 (08:56→20:42)
[2022-01-31] MEDS: ACETAMINOPHEN TAB 325 MG TAB PO PRN (08:59)
[2022-01-31] MEDS ORDERED: ARIPiprazole 15 MG TAB PO SCH (09:00)
--- NOTE | 2022-01-31 11:44 | P.PN ---
Progress Note - Text Progress Note Date: 01/31/22 Interval History: Patient was seen resting in bed and was directable to speak with advertising copywriter. Currently, patient is reporting some "kidney pain." She reports that when she does urinate. She is not reporting any suicidal or homicidal ideation, intention, and/or plan at this time. She is not reporting any auditory or visual hallucinations. She does report some baseline paranoia however is denying any overt delusions. She has been adherent with her medications and is not reporting any significant side effects at this time. She denies any issues regarding her appetite. She continues to report poor sleep. She is agreeable however to transition to the long-acting injectable Abilify maintena. Mental Status Exam: General Appearance: Patient appears to be stated age is alert, directable, and cooperative. Behavior: Patient is lying down in bed with poor eye contact. Speech: Patient's speech is minimal in conversation. Mood/Affect: Mood is "still in pain." Affect is malaised. Suicidality/Homicidality: Patient denies having any suicidal or homicidal ideation intent or plan. Perceptions: Patient denies any visual hallucinations and denies any auditory hallucinations Though content/process: There is no evidence of any delusional thought content and thought process is linear and goal-directed. Continued fixation on pain management. Memory and concentration: AOX3, grossly intact for the purposes of this session Judgment and insight: Mildly improving Vital Signs Temp 97.4 F L 01/30/22 06:48 Pulse 65 01/30/22 06:48 Resp 16 01/30/22 06:48 BP 114/73 01/30/22 06:48 Pulse Ox 99 01/30/22 06:48 FiO2 Intake & Output 01/30/22 01/31/22 01/31/22 18:59 06:59 18:59 Weight 57.153 kg Assessment Bipolar disorder, unspecified Methamphetamine use disorder Cannabis use disorder Nicotine dependence Plan: -Patient continues to meet criteria for inpatient psychiatric admission for symptom stabilization and safety. The patient has been petitioned and certified. -Medications: Increase Abilify to 20 mg by mouth daily for mood stabilization/psychosis. Plan to transition to Abilify maintena over the weekend due to history of nonadherence with treatment. Continue Cymbalta 60 mg by mouth twice a day for depression/neuropathic pain Continue gabapentin 600 mg by mouth 3 times a day for off label use for anxiety and for neuropathic pain -When necessary Ativan and Haldol for agitation/aggression. -NRT - nicotine patch -SW on board for discharge planning. Encouraged the patient to participate in milieu.
[2022-01-31 16:16] LABS: Appearance,Urine Cloudy (Clear); Bacteria,Urine Rare /hpf; Bilirubin,Urine Negative (Negative); Blood,Urine Negative (Negative); Color,Urine Light Yellow; Glucose,Urine (UA) Negative (Negative); Hyaline Casts,Urine 1 /lpf (0-2); Ketones,Urine Negative (Negative); Leukocyte Esterase,Urine Small (Negative); Mucus,Urine Rare /hpf; Nitrite,Urine Negative (Negative); Protein,Urine Negative (Negative); RBC,Urine 1 /hpf (0-5); Specific Gravity,Urine 1.009 (1.001-1.035); Squamous Epithelial Cell,Urine 17 /hpf (0-4); Urobilinogen,Urine <2.0 mg/dL (<2.0); WBC,Urine 3 /hpf (0-5)
[2022-01-31 16:24] LABS: Amphetamine Screen,Urine Not Detected (NotDetected); Barbiturate Screen,Urine Not Detected (NotDetected); Benzodiazepines Screen,Urine Not Detected (NotDetected); Cocaine Screen,Urine Not Detected (NotDetected); Methadone Screen, Urine Not Detected (NotDetected); Opiate Screen,Urine Not Detected (NotDetected); Oxycodone Screen, Urine Not Detected (NotDetected); Phencyclidine Screen,Urine Not Detected (NotDetected); Tricyclic Antidepressant,Urine Not Detected (NotDetected); Urn Cannabinoid Scrn Detected (NotDetected)
[2022-02-01] MEDS: NICOTINE 14MG/24HR PATCH TRANSDERM SCH (09:21)
[2022-02-01] MEDS: LEVOTHYROXINE 75 MCG TAB PO SCH (09:21)
[2022-02-01] MEDS: DULoxetine HCL 60 MG CAPSULE.DR PO SCH ×2 (09:21→21:43)
[2022-02-01] MEDS: GABAPENTIN 300 MG CAP PO SCH ×3 (09:22→21:43)
[2022-02-01] MEDS ORDERED: ARIPiprazole IM SYRINGE 400 MG (NO CHARGE) PHARMACY STOCK IM ONE (10:00)
[2022-02-01] MEDS: ACETAMINOPHEN TAB 325 MG TAB PO PRN (13:49)
--- NOTE | 2022-02-01 16:27 | P.PN ---
Progress Note - Text Progress Note Date: 02/01/22 Interval history: Patient was seen resting in her bed and was directable and agreeable to speak with telegraphic typewriter repairer. She reports feeling "tired", but otherwise mood is "fine", appears somewhat depressed and withdrawn. At this time patient denies any suicidal or homicidal ideations, intent or plan. She denies any auditory or visual hallucinations. Patient denies any side effects from the medications and has been compliant with meds. She received her Abilify Maintena 400 mg IM this morning and tolerated it well. She reports sleep and appetite are good. Mental status exam: General Appearance: Patient appears to be stated age, hair buzzed short, laying in bed with covers on. Behavior: No agitated behavior. Patient is calm and directable.. Speech: Patient's speech is fluent and non-pressured. Mood/Affect: Mood is improving mildly, affect is congruent and constricted. Suicidality/Homicidality: Patient denies having any suicidal or homicidal ideation intent or plan. Perceptions: Patient denies any auditory or visual hallucinations. Though content/process: There is no evidence of any delusional thought content and thought process is linear and goal-directed. Memory and concentration: AOX3, grossly intact for the purposes of this session Judgment and insight: improving mildly Assessment/Plan: Continue with current diagnosis. Patient continues to meet criteria for inpatient psychiatric admission for symptom stabilization and safety. Patient will be maintained on current psychotropic medication regimen. She received her Abilify Maintena 400 mg IM this morning and tolerated it well. She will need to continue Abilify 20 mg po for 14 days to bridge to [facility]. Monitor for medication compliance and for any psychotropic medication side effects. Will continue to monitor ongoing response to treatment. Encouraged participation in milieu.
[2022-02-02] MEDS: LEVOTHYROXINE 75 MCG TAB PO SCH (06:56)
[2022-02-02] MEDS: NICOTINE 14MG/24HR PATCH TRANSDERM SCH (09:07)
[2022-02-02] MEDS: DULoxetine HCL 60 MG CAPSULE.DR PO SCH ×2 (09:07→20:34)
[2022-02-02] MEDS: GABAPENTIN 300 MG CAP PO SCH ×3 (09:08→20:35)
--- NOTE | 2022-02-02 18:44 | P.PN ---
Progress Note - Text Progress Note Date: 02/02/22 Interval history: Patient was seen resting in her bed and was directable and agreeable to speak with play writer. She reports feeling "tired" again today, has been mostly isolating to her room. She reports feeling lightheaded and dizzy since she received the Abilify Maintena injection yesterday. Last night her BP was low at 87/52 and nurse held her Cymbalta and Gabapentin. Today she appears somewhat depressed and withdrawn. She states she has been drinking water, but staff reports patient has been mostly isolating to her room and missing some meals. At this time patient denies any suicidal or homicidal ideations, intent or plan. She denies any auditory or visual hallucinations. She has been compliant with meds, and reports feeling "tired". Mental status exam: General Appearance: Patient appears to be stated age, hair buzzed short, laying in bed. Behavior: No agitated behavior. Patient is calm and directable. Speech: Patient's speech is fluent and non-pressured. Mood/Affect: Mood is improving mildly, affect is congruent and constricted. Suicidality/Homicidality: Patient denies having any suicidal or homicidal ideation intent or plan. Perceptions: Patient denies any auditory or visual hallucinations. Though content/process: There is no evidence of any delusional thought content and thought process is linear and goal-directed. Memory and concentration: AOX3, grossly intact for the purposes of this session Judgment and insight: improving mildly Assessment/Plan: Continue with current diagnosis. Patient continues to meet criteria for inpatient psychiatric admission for symptom stabilization and safety. Decrease oral Abilify to 10 mg daily starting tomorrow AM due to feeling tired, lightheaded, dizzy. She received her Abilify Maintena 400 mg IM yesterday. Encourage fluids intake. Nurse to give her Gatorade now. Monitor vitals. Monitor for medication compliance and for any psychotropic medication side effects. Will continue to monitor ongoing response to treatment. Encouraged participation in milieu.
[2022-02-03] MEDS: LEVOTHYROXINE 75 MCG TAB PO SCH (06:48)
[2022-02-03] MEDS: DULoxetine HCL 60 MG CAPSULE.DR PO SCH ×2 (09:57→16:52)
[2022-02-03] MEDS: GABAPENTIN 300 MG CAP PO SCH ×3 (09:57→21:10)
[2022-02-03] MEDS: ARIPiprazole 10 MG TAB PO SCH ×2 (09:57→09:59)
[2022-02-03] MEDS: NICOTINE 14MG/24HR PATCH TRANSDERM SCH ×2 (09:58→21:11)
--- NOTE | 2022-02-03 13:22 | P.PN ---
Progress Note - Text Progress Note Date: 02/03/22 Interval History: Patient was seen resting in bed and was directable to speak with telegraphic typewriter repairer. Currently, the patient is not reporting any suicidal or homicidal ideation, intention, and/or plan. She is not reporting any auditory or visual hallucinations. She denies any paranoia or other delusions. The patient has been adherent with her medications not reporting any significant side effects. She does report that she receive the Abilify maintena and is tolerating it well. She does continue to report generalized back pain. Mental Status Exam: General Appearance: Patient appears to be stated age is alert, directable, and cooperative. Behavior: Patient is lying down in bed with poor eye contact. Speech: Patient's speech is minimal in conversation. Mood/Affect: Mood is "My back hurts" Affect is constricted. Suicidality/Homicidality: Patient denies having any suicidal or homicidal ideation intent or plan. Perceptions: Patient denies any visual hallucinations and denies any auditory hallucinations Though content/process: There is no evidence of any delusional thought content and thought process is linear and goal-directed. Continued fixation on pain management. Memory and concentration: AOX3, grossly intact for the purposes of this session Judgment and insight: Mildly improving Vital Signs Temp 98.6 F 02/02/22 06:53 Pulse 61 02/02/22 06:53 Resp 16 02/02/22 06:53 BP 118/62 02/02/22 06:53 Pulse Ox 99 01/30/22 06:48 FiO2 Intake & Output 02/02/22 02/03/22 02/03/22 18:59 06:59 18:59 Weight 48.8 kg Assessment Bipolar disorder, unspecified Methamphetamine use disorder Cannabis use disorder Nicotine dependence Plan: -Patient continues to meet criteria for inpatient psychiatric admission for symptom stabilization and safety. The patient has been petitioned and certified. -Medications: Continue Abilify 10 mg by mouth at bedtime for mood stabilization/psychosis. Patient received Abilify maintena on 02/01/2022. -When necessary Ativan and Haldol for agitation/aggression. -NRT - nicotine patch -SW on board for discharge planning. Encouraged the patient to participate in milieu.
[2022-02-04] MEDS: LEVOTHYROXINE 75 MCG TAB PO SCH (05:59)
[2022-02-04 06:43] VITALS: BP 106/69; PULSE 81; RESP 18; TEMP 97.9
[2022-02-04] MEDS: ARIPiprazole 10 MG TAB PO SCH (09:05)
[2022-02-04] MEDS: DULoxetine HCL 60 MG CAPSULE.DR PO SCH (09:06)
[2022-02-04] MEDS: NICOTINE 14MG/24HR PATCH TRANSDERM SCH (09:07)
[2022-02-04] MEDS: GABAPENTIN 300 MG CAP PO SCH (09:08)
--- NOTE | 2022-02-04 12:48 | P.DS ---
Providers Date of admission: 01/29/22 04:49 Expected date of discharge: 02/04/22 Attending physician: Wiliam Perkins MD Consults: 01/29/22 05:02 Consult Physician Routine Consulting Provider: Dewayne George Consult Reason/Comments: For H & P for Medical Follow Up Do you want consulting provider notified?: Yes, Notify in am Primary care physician: Dewayne George MD - Discharge Diagnosis(es) (1) Bipolar 2 disorder Current Visit: Yes Status: Acute Priority: High (2) Methamphetamine use disorder, severe, dependence Current Visit: Yes Status: Acute Priority: High (3) Cannabis use disorder Current Visit: Yes Status: Chronic Priority: Medium (4) Nicotine dependence Current Visit: Yes Status: Chronic Priority: Medium Hospital Course: Admission HPI: Patient is a , unemployed, 40-year-old female with significant history of methamphetamine use disorder, thyroid disorder, and seizure disorder who presents to the hospital on 01/28/2022 Patient presented to the hospital on 01/29/2022, brought into the hospital under petition and certification for [place]ola and acute psychosis. The petition was filled out by the patient's sister who wrote that "the patient believes that people are hiding her phone, stealing her social security, breaking in and raping her. She also reports that everyone is out to get her and accuses people of doing and being things. She is also noted to have extreme weight loss, not bathing, and not attending to her physical needs. She is not sleeping. Furthermore, the [place] police responded to a call at the [facility] where she vandalized the room by ripping off the wallpaper. She wrote all over the stark and also stick herself with syringes. She reported concerns that people were coming out of the pictures." Upon admission into the psychiatric unit, the patient is vehemently denying any of these events. She reports that it is her family that is mentally ill and needs to be assessed. She does admit to recent methamphetamine use approximate 5 days prior to this admission. However, the patient does not believe that methamphetamine use is related to her psychiatric presentation. She has very poor insight and judgment. The patient is currently denying any suicidal or homicidal ideation, intention, and/or plan. She denies any auditory or visual hallucinations. She does admit to paranoid thoughts. She states that her family has been stealing her social security and that is the reason why they want her admitted into the psychiatric unit. She also states that Brandon Reece is good friends with her mother and that is why she is here against her will on a court pickup order. The patient reports that she uses methamphetamines in order to address her back pain. She does not find any issue with her methamphetamine use. She reports that she sometimes uses methamphetamines in order to stay awake as she is currently homeless and needs to protect herself. Furthermore, the patient states that the methamphetamines "aren't so bad because Cymbalta and caffeine make me feel like I'm on methamphetamines anyway." The patient is demanding discharge. A second clinical certificate has been filled out for mental health treatment. Patient has a history of depression, methamphetamine abuse, and cannabis abuse. She has had previous trials of Seroquel, Cymbalta, trazodone, Topamax, and Catapres. The patient was last hospitalized on our psychiatric unit for 3 days in May 2021. The patient has reportedly not followed up in the outpatient setting. Patient denies any prior attempts at suicide. Hospital course: Upon admission to the unit patient was initially uncooperative with the psychiatric evaluation and preferred to isolate herself in her room. She was started on a regimen of Cymbalta, gabapentin, and Abilify with plans to transition her to [facility] due to her history of nonadherence with treatment and psychotic symptoms. The patient did defer mental health court. The patient also tested positive for methamphetamine use admitted to recent methamphetamine use to this provider. Over the course the hospital physician, the patient was adherent with her medications and displayed gradual but significant improvement in regards her target symptoms of depression, suicidal ideation, and psychosis. She became more cooperative with staff and peers and began attending both individual and milieu therapies. [facility]. On the day of discharge, the patient is not reporting any suicidal or homicidal ideation, intention, and/or plan. She is not reporting any auditory or visual hallucinations. She denies any paranoia or other delusions. She denies any access to firearms or other weapons. The patient does have a significant history of substance abuse and was counseled regarding [place] abstaining from all substances including alcohol, marijuana, and especially methamphetamines. She remains pre-contemplative at this time. She does not wish to go to rehab. The patient was counseled on her medications and the need for regular adherence and appropriate outpatient follow-up. Prior to discharge, family meeting was arranged by the social service technician has any questions and ensure safety. Mental status exam: General Appearance: Patient appears to be stated age is alert, pleasant, and cooperative. Patient is in no acute distress and has fair hygiene and grooming. Poor dentition. Bald. Behavior: Patient is calmly seated without any agitated behavior. Speech: Patient's speech is fluent and nonpressured. Mood/Affect: Patient reports their mood is "much better", affect is congruent and euthymic. Suicidality/Homicidality: Patient denies having any suicidal or homicidal ideation intent or plan. Perceptions: Patient denies any auditory or visual hallucinations. Though content/process: There is no evidence of any delusional thought content and thought process is linear and goal-directed. Patient is future oriented. Memory and concentration: AOX3, grossly intact for the purposes of this session. Can spell "WORLD" backwards correctly. Judgment and insight: Improved with guarded prognosis Impression: Bipolar 2 disorder Methamphetamine use disorder Cannabis use disorder Nicotine dependence Plan: -Continue with discharge today as patient has improved and stabilized psychiatrically and is not currently an imminent threat to herself and/or others. Patient will remain at chronically elevated risk for harm to self and/or others due to her heavy substance abuse. -Continue medications: Abilify 10 mg by mouth at bedtime for 15 days Abilify maintena 400 mg IM was administered on 02/01/2022. Next dose due on 03/01/2022. Cymbalta 60 mg by mouth twice a day Gabapentin 600 mg by mouth 3 times a day -Patient was counseled on the need for medication compliance and appropriate follow-up at mental health and also primary care for medical issues. Patient verbalized understanding and agreed. -Social work to arrange for and conduct family meeting to ensure safety upon discharge and answer any questions/concerns. Social work also to arrange for patients follow up appointments with [facility] for psychiatric care along with follow up with primary care provider. -Patient counseled on abstaining from recreational drugs and marijuana and alcohol. Was informed/educated on the adverse effects on their physical and mental health. Patient verbally agreed and understood. Patient was offered substance abuse treatment however declined at this time. -Patient was instructed to return to the hospital or seek immediate medical care if their psychiatric or medical symptoms do worsen or reoccur. -Psychoeducation and supportive therapy provided to patient. Risks and benefits of pharmacological treatment versus the risks and benefits of nontreatment weight and discussed. Informed consent discussion held. Common side effects of psychotropics discussed such as, but not limited to headache, GI disturbance, sexual dysfunction, movement disorders, sedation, and orthostatic hypotension. Life threatening and blackbox warnings of prescribed medications also discussed. Potential risks of operating a vehicle or heavy machinery discussed with patient at length. Advised on importance of compliance and a reliable and responsible manner. Patient advised to review FDA consumer labeling of all medications prior to taking. Patient verbalized understanding of potential risks, and agrees with current treatment plan. Patient advised to medically contact physician/emergency personnel if any acute changes in condition occur. Allergies Allergy/AdvReac Type Severity Reaction Status Date / Time aspirin Allergy Unknown Verified 01/28/22 22:29 ibuprofen Allergy Unknown Verified 01/28/22 22:29 Penicillins Allergy Unknown Verified 01/28/22 22:29 Laboratory Results Urine Color Light Yellow 01/31/22 Unknown Urine Appearance Cloudy (Clear) H 01/31/22 Unknown Urine pH 7.0 (5.0-8.0) 01/31/22 Unknown Ur Specific [place] 1.009 (1.001-1.035) 01/31/22 Unknown Urine Protein Negative (Negative) 01/31/22 Unknown Urine Glucose (UA) Negative (Negative) 01/31/22 Unknown Urine Ketones Negative (Negative) 01/31/22 Unknown Urine Blood Negative (Negative) 01/31/22 Unknown Urine Nitrite Negative (Negative) 01/31/22 Unknown Urine Bilirubin Negative (Negative) 01/31/22 Unknown Urine Urobilinogen <2.0 mg/dL (<2.0) 01/31/22 Unknown Ur Leukocyte Esterase Small (Negative) H 01/31/22 Unknown Urine RBC 1 /hpf (0-5) 01/31/22 Unknown Urine WBC 3 /hpf (0-5) 01/31/22 Unknown Ur Squamous Epith Cells 17 /hpf (0-4) H 01/31/22 Unknown Urine Bacteria Rare /hpf (None) H 01/31/22 Unknown Hyaline Casts 1 /lpf (0-2) 01/31/22 Unknown Urine Mucus Rare /hpf (None) H 01/31/22 Unknown Urine HCG, Qual Not Detected (Not Detectd) 01/31/22 Unknown Urine Opiates Screen Not Detected (NotDetected) 01/31/22 16:10 Ur Oxycodone Screen Not Detected (NotDetected) 01/31/22 16:10 Urine Methadone Screen Not Detected (NotDetected) 01/31/22 16:10 Ur Propoxyphene Screen Not Detected (NotDetected) 01/31/22 16:10 Ur Barbiturates Screen Not Detected (NotDetected) 01/31/22 16:10 U Tricyclic Antidepress Not Detected (NotDetected) 01/31/22 16:10 Ur Phencyclidine Scrn Not Detected (NotDetected) 01/31/22 16:10 Ur Amphetamines Screen Not Detected (NotDetected) 01/31/22 16:10 U Methamphetamines Scrn Detected (NotDetected) H 01/31/22 16:10 U Benzodiazepines Scrn Not Detected (NotDetected) 01/31/22 16:10 Urine Cocaine Screen Not Detected (NotDetected) 01/31/22 16:10 U Marijuana (THC) Screen Detected (NotDetected) H 01/31/22 16:10 Coronavirus (PCR) Not Detected (Not Detectd) 01/29/22 03:25 Vital Signs Temp 97.9 F 02/04/22 06:42 Pulse 81 02/04/22 06:42 Resp 18 02/04/22 06:42 BP 106/69 02/04/22 06:42 Pulse Ox 99 02/04/22 06:42 FiO2 Patient Condition at Discharge: Stable Plan - Discharge Summary Discharge Rx Participant: No New Discharge Prescriptions: New ARIPiprazole [Abilify] 10 mg PO HS 15 Days tab DULoxetine HCL [Cymbalta] 60 mg PO BID-W/MEALS 30 Days cap Levothyroxine Sodium [Synthroid] 75 mcg PO DAILY@0630 30 Days tab Gabapentin [Neurontin] 600 mg PO TID 30 Days cap ARIPiprazole IM [Abilify Maintena] 400 mg IM QMONTHLY #1 each Continue Topiramate [Topamax] 200 mg PO BID Discontinued DULoxetine HCL [Cymbalta] 60 mg PO HS 30 Days capsule Gabapentin 600 mg PO BID cloNIDine HCL 0.2 mg PO HS QUEtiapine [SEROquel] 50 mg PO HS Levothyroxine Sodium [Synthroid] 75 mcg PO DAILY 30 Days tab traZODone HCL 50 mg PO HS Discharge Medication List Topiramate [Topamax] 200 mg PO BID 06/26/21 [History] ARIPiprazole IM [Abilify Maintena] 400 mg IM QMONTHLY #1 each 02/04/22 [Rx] ARIPiprazole [Abilify] 10 mg PO HS 15 Days tab 02/04/22 [Rx] DULoxetine HCL [Cymbalta] 60 mg PO BID-W/MEALS 30 Days cap 02/04/22 [Rx] Gabapentin [Neurontin] 600 mg PO TID 30 Days cap 02/04/22 [Rx] Levothyroxine Sodium [Synthroid] 75 mcg PO DAILY@0630 30 Days tab 02/04/22 [Rx] Follow up Appointment(s)/Referral(s): [facility] [Outside] - 02/06/22 9:00 am ([facility]) Dewayne George MD [Primary Care Provider] - 1-2 days Patient Instructions/Handouts: How to Stop Smoking (DC), Bipolar Disorder (DC), Cannabis Abuse (DC), Methamphetamine Abuse (DC) Activity/Diet/Wound Care/Special Instructions: Avoid the use of street drugs and alcohol. Take all prescriptions as prescribed. When you are in need of refills on your medications, please contact your medical provider and/or outpatient psychiatrist to have this done. Please go to scheduled outpatient appointment for aftercare treatment. If symptoms return or become worse, call the crisis line at and/or go to the nearest emergency room for evaluation. Discharge Disposition: HOME SELF-CARE
== END 2022-02-04 13:36 | disposition home or self-care (01) | DRG 885 ==
LOC: EC 18:55 → 3MHU 01-29 04:49
PROVIDERS: ADMIT Psychiatry & Neurology Psychiatry; ATTEND Psychiatry & Neurology Psychiatry
DX: F31.81 Bipolar II disorder (principal); F23 Brief psychotic disorder; F15.20 Other stimulant dependence, uncomplicated; F43.10 Post-traumatic stress disorder, unspecified; F19.959 Other psychoactive substance use, unspecified with psychoactive substance-induced psychotic disorder, unspecified; F39 Unspecified mood [affective] disorder; M79.7 Fibromyalgia; G40.909 Epilepsy, unspecified, not intractable, without status epilepticus; E03.9 Hypothyroidism, unspecified; M19.90 Unspecified osteoarthritis, unspecified site; F41.9 Anxiety disorder, unspecified; G89.29 Other chronic pain; M54.9 Dorsalgia, unspecified; F12.10 Cannabis abuse, uncomplicated; Z86.14 Personal history of Methicillin resistant Staphylococcus aureus infection; Z71.51 Drug abuse counseling and surveillance of drug abuser; Z86.16 Personal history of COVID-19; Z85.41 Personal history of malignant neoplasm of cervix uteri; Z79.899 Other long term (current) drug therapy; Z79.890 Hormone replacement therapy; Z59.00 Homelessness unspecified; Z56.0 Unemployment, unspecified
CPT/HCPCS: 80306; 81001; 81025; 82075; 87635; 99285

== ENCOUNTER 2022-02-15 11:29 | Inpatient (IN) | payer OTHER ==
--- NOTE | 2022-02-15 12:48 | ED ---
General Adult HPI - General Chief complaint: Overdose Stated complaint: Over dose Time Seen by Provider: 02/15/22 12:05 Source: patient, RN notes reviewed, old records reviewed Mode of arrival: EMS Limitations: no limitations - History of Present Illness Initial comments: Patient is a 41-year-old female who presents emergency department for concern for overdose. Patient does admit to smoking methamphetamine yesterday, having 1 beer yesterday, and She states she may taken 1 or 2 extra Percocets.. Patient was found unresponsive at home by family. They administered intranasal Narcan prior to EMS arrival and patient became responsive again. Patient has not required further intervention with Narcan. She is awake, alert, but somewhat sleepy. Does not believe she took too much of her Percocet. She denies any suicidal ideations, attempts complaints. Denies any visual or auditory hallucinations. Denies any homicidal ideations, attempts complaints. Currently denies any acute complaints, including denying chest pain, shortness breath, abdominal pain, nausea, vomiting. Patient presents following a suspected opiate overdose. - Related Data Home Medications Medication Instructions Recorded Confirmed Topiramate [Topamax] 200 mg PO BID 06/26/21 01/29/22 Previous Rx's Medication Instructions Recorded ARIPiprazole IM [Abilify Maintena] 400 mg IM QMONTHLY #1 each 02/04/22 ARIPiprazole [Abilify] 10 mg PO HS 15 Days tab 02/04/22 DULoxetine HCL [Cymbalta] 60 mg PO BID-W/MEALS 30 Days cap 02/04/22 Gabapentin [Neurontin] 600 mg PO TID 30 Days cap 02/04/22 Levothyroxine Sodium [Synthroid] 75 mcg PO DAILY@0630 30 Days tab 02/04/22 Allergies Allergy/AdvReac Type Severity Reaction Status Date / Time aspirin Allergy Unknown Verified 02/15/22 11:40 ibuprofen Allergy Unknown Verified 02/15/22 11:40 Penicillins Allergy Unknown Verified 02/15/22 11:40 Review of Systems ROS Statement: Those systems with pertinent positive or pertinent negative responses have been documented in the HPI. Review of Systems: CONST: Denies fever EYES: Denies blurry vision ENT: Denies nasal congestion C/V: Denies Chest pain RESP: Denies shortness of breath GI: Denies abdominal pain : Denies dysuria SKIN: Denies rash. MSK: Denies joint pain. NEURO: Denies headache PSYCH: Denies suicidal and homicidal ideations/plans/attempts. Denies visual or auditory hallucinations. ROS Other: All systems not noted in ROS Statement are negative. Past Medical History Past Medical History: Cancer, Fibromyalgia, Osteoarthritis (OA), Seizure Disorder, Thyroid Disorder Additional Past Medical History / Comment(s): Pt tested covid + on 09/21/[address] George's office. Other hx: MIgraines, chronic back pain, occasional edema legs/feet, hypothyroid, cervical cancer with treatment. History of Any Multi-Drug Resistant Organisms: MRSA Date of last positivie culture/infection: 2007 MDRO Source:: L knee Past Surgical History: Adenoidectomy, Section, Tubal Ligation Additional Past Surgical History / Comment(s): Procedure for cervical cancer/pt cannot recall type of procedure, D&C, lumbar epidurals Past Anesthesia/Blood Transfusion Reactions: Postoperative Nausea & Vomiting (PONV) Additional Past Anesthesia/Blood Transfusion Reaction / Comment(s): Occasional PONV Past Psychological History: Anxiety, Depression Smoking Status: Current some day smoker, Vaper Past Alcohol Use History: Occasional Past Drug Use History: Methamphetamine, Prescription Drug Abuse - Past Family History Father History Unknown: Yes Additional Family Medical History / Comment(s): Father is . Mother Family Medical History: No Reported History Additional Family Medical History / Comment(s): Mother is healthy General Exam - General Exam Comments Initial Comments: General: Appears in no acute distress. Likely sleepy. No distress. HEAD: Normal with no signs of head trauma. EYES: PERRLA, EOMI, conjunctiva normal, no discharge. Pupils are 1mm, boarderline pinpoint. ENT: Hearing grossly intact, normal oropharynx. RESPIRATORY: Clear breath sounds bilaterally. No wheezes, rales, or rhonchi. Saturating well on room air. C/V: Regular rate and rhythm. S1 and S2 auscultated, no edema, peripheral pulses 2+ and intact throughout ABD: Abd is soft, nontender, nondistended EXT: Normal range of motion, no obvious deformity SKIN: No rashes or lesions observed on exposed skin. NEURO: Alert and oriented x 4. Cranial nerves II-XII intact. No focal sensory or strength deficits. Limitations: no limitations Course Vital Signs 02/15/22 02/15/22 02/15/22 11:41 12:36 13:46 Temperature 97.8 F Pulse Rate 84 69 Respiratory 14 20 12 Rate Blood Pressure 105/73 105/73 O2 Sat by Pulse 100 96 Oximetry 02/15/22 02/15/22 02/15/22 13:49 14:15 14:19 Temperature 96.8 F L Pulse Rate 69 76 Respiratory 12 12 12 Rate Blood Pressure 107/72 92/61 O2 Sat by Pulse 100 98 Oximetry Medical Decision Making - Medical Decision Making Based on the patient's presentation and physical exam, I do believe that she is experiencing symptoms from an overdose. We'll connected to continuous athletic monitor with continuous pulse oximetry. She is not straightforward with what she took, however I do believe is likely related to her chronic Percocet use. She does not require Narcan here in the department or by EMS he had. We'll con tinue to monitor. Basic labs be obtained including EKG. Chest x-ray will also be obtained. She was in agreement this plan.Denies any suicidal attempt, intentional overdose. Patient's laboratory studies are remarkable for normal electrolytes and CBC. Patient does have a UDS positive for oxycodone, amphetamines, mass. Alcohol, acetaminophen, salicylates are negative. Chest x-ray shows no acute cardio pulmonary process. Patient did repeat CT for a total of 1 mg of Narcan while here in the department and she did become somewhat dyspneic. She remains sleepy at this time after 3 hours of observation, I would like to admit her to the hospital for further observation. I spoke with the admitting physician, Dr. Sorto who is covering for Dr. George who accepted the patient. She'll be continued on continuous pulse ox and continuous cardiac monitoring.Patient remains easily arousable, however sleepy at rest. I do suspect that this overdose is likely secondary to her home prescription me dications. - Lab Data Result diagrams: 02/15/22 12:25 02/15/22 12:25 Lab Results 02/15/22 02/15/22 02/15/22 Range/Units 12:25 12:25 13:24 WBC 6.3 (3.8-10.6) k/uL RBC 4.33 (3.80-5.40) m/uL Hgb 14.5 (11.4-16.0) gm/dL Hct 46.2 H (34.0-46.0) % MCV 106.5 H (80.0-100.0) fL MCH 33.5 (25.0-35.0) pg MCHC 31.5 (31.0-37.0) g/dL RDW 12.9 (11.5-15.5) % Plt Count 148 L (150-450) k/uL MPV 7.8 Neutrophils % 71 % Lymphocytes % 18 % Monocytes % 6 % Eosinophils % 1 % Basophils % 1 % Neutrophils # 4.5 (1.3-7.7) k/uL Lymphocytes # 1.1 (1.0-4.8) k/uL Monocytes # 0.4 (0-1.0) k/uL Eosinophils # 0.1 (0-0.7) k/uL Basophils # 0.1 (0-0.2) k/uL Macrocytosis Moderate Sodium 138 (137-145) mmol/L Potassium 4.2 (3.5-5.1) mmol/L Chloride 99 (98-107) mmol/L Carbon Dioxide 30 (22-30) mmol/L Anion Gap 9 mmol/L BUN 18 H (7-17) mg/dL Creatinine 0.88 (0.52-1.04) mg/dL Est GFR (CKD-EPI)AfAm >90 (>60 ml/min/1.73 sqM) Est GFR (CKD-EPI)NonAf 81 (>60 ml/min/1.73 sqM) Glucose 84 (74-99) mg/dL Calcium 8.5 (8.4-10.2) mg/dL Total Bilirubin 0.4 (0.2-1.3) mg/dL AST 19 (14-36) U/L ALT 25 (4-34) U/L Alkaline Phosphatase 72 (38-126) U/L Total Protein 7.2 (6.3-8.2) g/dL Albumin 4.3 (3.5-5.0) g/dL Salicylates <1.0 mg/dL Urine Opiates Screen Not Detected (NotDetected) Ur Oxycodone Screen Detected H (NotDetected) Urine Methadone Screen Not Detected (NotDetected) Ur Propoxyphene Screen Not Detected (NotDetected) Acetaminophen <10.0 ug/mL Ur Barbiturates Screen Not Detected (NotDetected) U Tricyclic Antidepress Not Detected (NotDetected) Ur Phencyclidine Scrn Not Detected (NotDetected) Ur Amphetamines Screen Detected H (NotDetected) U Methamphetamines Scrn Detected H (NotDetected) U Benzodiazepines Scrn Not Detected (NotDetected) Urine Cocaine Screen Not Detected (NotDetected) U Marijuana (THC) Screen Not Detected (NotDetected) Serum Alcohol <10 mg/dL - EKG Data -: EKG Interpreted by Me EKG Comments: 12-lead Electrocardiogram Interpretation Note EKG was reviewed and interpreted by myself. 12-lead ECG performed at 1228 is interpreted by me as revealing normal sinus rhythm at a rate of 69 beats per minute. [place] is normal. [place] interval is 150 ms, QRS duration is 86 ms, QTc is 423 ms.. There were no ST or T wave abnormalities to suggest myocardial ischemia or injury. R wave progression across the precordium was satisfactory. By my interpretation this EKG is non-diagnostic for acute ischemia. Disposition Clinical Impression: Opiate overdose Disposition: ADMITTED IP TO THIS HOSP Condition: Stable Referrals: Dewayne George MD [Primary Care Provider] - 1-2 days Time of Disposition: 14:35
[2022-02-15 13:05] LABS: Basophils # (A) 0.1 k/uL (0-0.2); Basophils % (A) 1 %; Eosinophils # (A) 0.1 k/uL (0-0.7); Eosinophils % (A) 1 %; HCT 46.2 % (34.0-46.0); HGB 14.5 gm/dL (11.4-16.0); Lymphocytes # (A) 1.1 k/uL (1.0-4.8); Lymphocytes % (A) 18 %; MCH 33.5 pg (25.0-35.0); MCHC 31.5 g/dL (31.0-37.0); MCV 106.5 fL (80.0-100.0); Macrocytosis Moderate; Mean Platelet Volume 7.8; Monocytes # (A) 0.4 k/uL (0-1.0); Monocytes % (A) 6 %; Neutrophils # (A) 4.5 k/uL (1.3-7.7); Neutrophils % (A) 71 %; Platelet Count 148 k/uL (150-450); RBC 4.33 m/uL (3.80-5.40); RDW 12.9 % (11.5-15.5); WBC 6.3 k/uL (3.8-10.6)
[2022-02-15] MEDS ORDERED: NALOXONE 0.4 MG/ML 1 ML VIAL IVP STA ×2 (13:13→14:09)
[2022-02-15 13:19] LABS: ALT 25 U/L (4-34); AST 19 U/L (14-36); Acetaminophen <10.0 ug/mL; African American GFR (CKD) >90 (>60 ml/min/1.73 sqM); Albumin 4.3 g/dL (3.5-5.0); Alcohol <10 mg/dL; Alkaline Phosphatase 72 U/L (38-126); Anion Gap 9 mmol/L; Blood Urea Nitrogen 18 mg/dL (7-17); Calcium 8.5 mg/dL (8.4-10.2); Carbon Dioxide 30 mmol/L (22-30); Chloride 99 mmol/L (98-107); Glucose 84 mg/dL (74-99); Non-African American GFR(CKD) 81 (>60 ml/min/1.73 sqM); Potassium 4.2 mmol/L (3.5-5.1); Salicylate <1.0 mg/dL; Sodium 138 mmol/L (137-145); Total Bilirubin 0.4 mg/dL (0.2-1.3); Total Protein 7.2 g/dL (6.3-8.2)
--- NOTE | 2022-02-15 13:20 | XR ---
EXAMINATION TYPE: XR chest 1V portable DATE OF EXAM: 02/15/2022 Comparison: 07/03/2021 Clinical History: 41-year-old female overdose Findings: Heart normal size. Aorta and pulmonary vasculature within normal limits. Mild interstitial prominence is unchanged. No consolidation or pleural effusion. Impression: Chronic changes without acute cardiopulmonary process.
[2022-02-15 14:01] LABS: Amphetamine Screen,Urine Detected (NotDetected); Barbiturate Screen,Urine Not Detected (NotDetected); Benzodiazepines Screen,Urine Not Detected (NotDetected); Cocaine Screen,Urine Not Detected (NotDetected); Methadone Screen, Urine Not Detected (NotDetected); Opiate Screen,Urine Not Detected (NotDetected); Oxycodone Screen, Urine Detected (NotDetected); Phencyclidine Screen,Urine Not Detected (NotDetected); Tricyclic Antidepressant,Urine Not Detected (NotDetected); Urn Cannabinoid Scrn Not Detected (NotDetected)
[2022-02-15] MEDS ORDERED: SODIUM CHLORIDE 0.9% 1,000 ML IV STA ×2 (14:21)
[2022-02-15] MEDS ORDERED: NALOXONE 0.4 MG/ML 1 ML VIAL IV PRN (15:11)
--- NOTE | 2022-02-15 16:07 | CT ---
EXAMINATION TYPE: CT brain wo con DATE OF EXAM: 02/15/2022 COMPARISON: 06/28/2021 HISTORY: overdose, sleepy CT DLP: 1017.4 mGycm Automated exposure control for dose reduction was used. Images of the brain obtained with no contrast. Ventricles have normal size. There is no mass effect or midline shift. No sign of intracranial hemorr katie. Calvarium is intact. There is normal aeration of the mastoid sinuses. Skull base is intact. IMPRESSION: Negative unenhanced head CT scan. No change.
[2022-02-15] MEDS: HEPARIN SODIUM,PORCINE/PF 5,000 UNIT/0.5 ML SYRINGE SQ SCH (17:12)
--- NOTE | 2022-02-15 17:15 | P.HPIM ---
History of Present Illness H&P Date: 02/15/22 Chief Complaint: Narcotic overdose 41-year-old female who presents emergency department for concern for overdose. Patient does admit to smoking methamphetamine yesterday, having 1 beer yesterday, and She states she may taken 1 or 2 extra Percocets.. Patient was found unresponsive at home by family. They administered intranasal Narcan prior to EMS arrival and patient became responsive again. Patient has not required further intervention with Narcan. She is awake, alert, but somewhat sleepy. Does not believe she took too much of her Percocet. She denies any suicidal ideations, attempts complaints. Denies any visual or auditory hallucinations. Denies any homicidal ideations, attempts complaints. Currently denies any acute complaints, including denying chest pain, shortness breath, abdominal pain, nausea, vomiting. Patient presents following a suspected opiate overdose. Patient's laboratory studies are remarkable for normal electrolytes and CBC. Patient does have a UDS positive for oxycodone, amphetamines, mass. Alcohol, acetaminophen, salicylates are negative. Chest x-ray shows no acute cardio pulmonary process. Patient did have a total of 1 mg of Narcan while here in the department and she did become somewhat dyspneic. She remains sleepy at this time after 3 hours of observation Review of Systems REVIEW OF SYSTEMS: CONSTITUTIONAL: No fever, no malaise, no fatigue. HEENT: No recent visual problems or hearing problems. Denied any sore throat. CARDIOVASCULAR: No chest pain, orthopnea, PND, no palpitations, no syncope. PULMONARY: No shortness of breath, no cough, no hemoptysis. GASTROINTESTINAL: No diarrhea, no nausea, no vomiting, no abdominal pain. NEUROLOGICAL: No headaches, no weakness, no numbness. HEMATOLOGICAL: Denies any bleeding or petechiae. GENITOURINARY: Denies any burning micturition, frequency, or urgency. MUSCULOSKELETAL/RHEUMATOLOGICAL: Denies any joint pain, swelling, or any muscle pain. ENDOCRINE: Denies any polyuria or polydipsia. The rest of the 14-point review of systems is negative. Past Medical History Past Medical History: Cancer, Fibromyalgia, Osteoarthritis (OA), Seizure Disorder, Thyroid Disorder Additional Past Medical History / Comment(s): Pt tested covid + on 09/21/[address] George's office. Other hx: MIgraines, chronic back pain, occasional edema legs/feet, hypothyroid, cervical cancer with treatment. History of Any Multi-Drug Resistant Organisms: MRSA Date of last positivie culture/infection: 2007 MDRO Source:: L knee Past Surgical History: Adenoidectomy, Section, Tubal Ligation Additional Past Surgical History / Comment(s): Procedure for cervical cancer/pt cannot recall type of procedure, D&C, lumbar epidurals Past Anesthesia/Blood Transfusion Reactions: Postoperative Nausea & Vomiting (PONV) Additional Past Anesthesia/Blood Transfusion Reaction / Comment(s): Occasional PONV Past Psychological History: Anxiety, Depression Smoking Status: Current some day smoker, Vaper Past Alcohol Use History: Occasional Past Drug Use History: Methamphetamine, Prescription Drug Abuse - Past Family History Father History Unknown: Yes Additional Family Medical History / Comment(s): Father is . Mother Family Medical History: No Reported History Additional Family Medical History / Comment(s): Mother is healthy Medications and Allergies Home Medications Medication Instructions Recorded Confirmed Type Topiramate [Topamax] 200 mg PO BID 06/26/21 02/15/22 History ARIPiprazole [Abilify] 10 mg PO HS 15 Days tab 02/04/22 02/15/22 Rx DULoxetine HCL [Cymbalta] 60 mg PO BID-W/MEALS 30 Days cap 02/04/22 02/15/22 Rx Gabapentin [Neurontin] 600 mg PO TID 30 Days cap 02/04/22 02/15/22 Rx Levothyroxine Sodium [Synthroid] 75 mcg PO DAILY@0630 30 Days tab 02/04/22 02/15/22 Rx ARIPiprazole IM [Abilify Maintena] 400 mg IM Q30D 02/15/22 02/15/22 History Hyoscyamine Sulfate [Levsin] 0.125 mg PO Q8H PRN 02/15/22 02/15/22 History Nicotine 21Mg/24Hr Patch [Habitrol] 1 patch TRANSDERM DAILY 02/15/22 02/15/22 History Nitrofurantoin Monohyd/M-Cryst 100 mg PO DIRECTED 02/15/22 02/15/22 History [Macrobid] Ondansetron Odt [Zofran Odt] 4 mg PO BID PRN 02/15/22 02/15/22 History Allergies Allergy/AdvReac Type Severity Reaction Status Date / Time aspirin Allergy Unknown Verified 02/15/22 16:05 ibuprofen Allergy Unknown Verified 02/15/22 16:05 Penicillins Allergy Unknown Verified 02/15/22 16:05 Physical Exam Vitals: Vital Signs Temp Pulse Resp BP Pulse Ox 02/15/22 14:19 76 12 92/61 98 02/15/22 14:15 12 02/15/22 13:49 96.8 F L 69 12 107/72 100 02/15/22 13:46 12 02/15/22 12:36 69 20 105/73 96 02/15/22 11:41 97.8 F 84 14 105/73 100 Intake and Output 02/15/22 02/15/22 02/15/22 06:59 14:59 22:59 Other: Weight 55.792 kg General: Appears in no acute distress. Likely sleepy. No distress. HEAD: Normal with no signs of head trauma. EYES: PERRLA, EOMI, conjunctiva normal, no discharge. Pupils are 1mm, boarderline pinpoint. ENT: Hearing grossly intact, normal oropharynx. RESPIRATORY: Clear breath sounds bilaterally. No wheezes, rales, or rhonchi. Saturating well on room air. C/V: Regular rate and rhythm. S1 and S2 auscultated, no edema, peripheral pulses 2+ and intact throughout ABD: Abd is soft, nontender, nondistended EXT: Normal range of motion, no obvious deformity SKIN: No rashes or lesions observed on exposed skin. NEURO: Alert and oriented x 4. Cranial nerves II-XII intact. No focal sensory or strength deficits. Results CBC & Chem 7: 02/15/22 12:25 02/15/22 12:25 Labs: Abnormal Lab Results - Last 24 Hours (Table) 02/15/22 02/15/22 02/15/22 Range/Units 12:25 12:25 13:24 Hct 46.2 H (34.0-46.0) % MCV 106.5 H (80.0-100.0) fL Plt Count 148 L (150-450) k/uL BUN 18 H (7-17) mg/dL Ur Oxycodone Screen Detected H (NotDetected) Ur Amphetamines Screen Detected H (NotDetected) U Methamphetamines Scrn Detected H (NotDetected) Assessment and Plan Assessment: 1. Altered mental status; multiple drug overdose - Urine drug screen is positive for narcotics, amphetamines and methamphetamines; alcohol is negative - Patient received a total of 1 mg of Narcan in ED and was somewhat more arousable - We will monitor closely 2. Multiple substance abuse; urine drug screen is positive for oxycodone, amphetamines and methamphetamines 3. Mild renal injury; BUN is elevated at 18; continue with IV fluid hydration and monitor renal function and electrolytes 4. Hypothyroidism; patient takes Synthroid 75 MCG daily; we will switch to IV levothyroxine. Patient is more alert and able to take medications orally 5. Bipolar disorder; patient takes Abilify, Cymbalta and Topamax; continue to hold patient is more awake and alert DVT prophylaxis; SCDs/subcu heparin CODE STATUS; full code
[2022-02-16] MEDS: HEPARIN SODIUM,PORCINE/PF 5,000 UNIT/0.5 ML SYRINGE SQ SCH ×3 (07:11→17:53)
[2022-02-16 09:19] LABS: HCT 40.5 % (37.2-46.3); HGB 12.9 g/dL (12.0-15.0); MCH 34.2 pg (27.0-32.0); MCHC 31.9 g/dL (32.0-37.0); MCV 107.4 fL (80.0-97.0); Mean Platelet Volume 9.9 fL (9.5-12.2); NRBC Per 100 WBC 0 /100 WBCS (0.0-0.0); Platelet Count 172 X 10*3/uL (140-440); RBC 3.77 X 10*6/uL (4.10-5.20); RDW 13.7 % (11.5-14.5); WBC 8.21 X 10*3/uL (4.50-10.00)
[2022-02-16 09:40] LABS: African American GFR (CKD) 104.7 (60.0-200.0); Anion Gap 8.6 mmol/L (10.00-18.00); BUN/Creat Ratio 18.13 Ratio (12.00-20.00); Blood Urea Nitrogen 14.5 mg/dL (9.0-27.0); Calcium 8.6 mg/dL (8.7-10.3); Carbon Dioxide 26.4 mmol/L (20.0-27.5); Non-African American GFR(CKD) 90.3 (60.0-200.0); Potassium 4.3 mmol/L (3.5-5.5)
[2022-02-16 10:32] LABS: Basophils # (A) 0.02 X 10*3/uL (0.00-0.10); Basophils % (A) 0.2 %; Eosinophils # (A) 0.06 X 10*3/uL (0.04-0.35); Eosinophils % (A) 0.7 %; Immature Grans, Automated 0.4 %; Lymphocytes # (A) 1.57 X 10*3/uL (0.90-5.00); Lymphocytes % (A) 19.1 %; Monocytes # (A) 0.66 X 10*3/uL (0.20-1.00); Neutrophils # (A) 5.87 X 10*3/uL (1.80-7.70); Neutrophils % (A) 71.6 %
[2022-02-16 10:33] LABS: Macrocytosis (M) 2+
[2022-02-16] MEDS ORDERED: ONDANSETRON 4 MG TAB PO PRN (14:21)
--- NOTE | 2022-02-16 17:01 | P.PN ---
Subjective Progress Note Date: 02/16/22 Principal diagnosis: Narcotic overdose Substance abuse Altered mental status 41-year-old female who presents emergency department for concern for overdose. Patient does admit to smoking methamphetamine yesterday, having 1 beer yesterday, and She states she may taken 1 or 2 extra Percocets.. Patient was found unresponsive at home by family. They administered intranasal Narcan prior to EMS arrival and patient became responsive again. Patient has not required further intervention with Narcan. She is awake, alert, but somewhat sleepy. Does not believe she took too much of her Percocet. She denies any suicidal ideations, attempts complaints. Denies any visual or auditory hallucinations. Denies any homicidal ideations, attempts complaints. Currently denies any acute complaints, including denying chest pain, shortness breath, abdominal pain, nausea, vomiting. Patient presents following a suspected opiate overdose. Patient's laboratory studies are remarkable for normal electrolytes and CBC. Patient does have a UDS positive for oxycodone, amphetamines, mass. Alcohol, acetaminophen, salicylates are negative. Chest x-ray shows no acute cardio pulmonary process. Patient did have a total of 1 mg of Narcan while here in the department and she did become somewhat dyspneic. She remains sleepy at this time after 3 hours of observation Patient is seen and evaluated in room at bedside; continues to be sleepy but easily arousable; home medications remain on hold We will continue to monitor patient closely with plans to reinstate home medications once patient is more awake and alert Objective - Vital Signs Vital signs: Vital Signs Temp 97.8 F 02/16/22 11:06 Pulse 62 02/16/22 11:06 Resp 16 02/16/22 11:06 BP 117/72 02/16/22 11:06 Pulse Ox 97 02/16/22 11:06 FiO2 Intake & Output 02/15/22 02/16/22 02/16/22 18:59 06:59 18:59 Weight 55.792 kg - Exam General: Appears in no acute distress. Likely sleepy. No distress. HEAD: Normal with no signs of head trauma. EYES: PERRLA, EOMI, conjunctiva normal, no discharge. Pupils are 1mm, boarderline pinpoint. ENT: Hearing grossly intact, normal oropharynx. RESPIRATORY: Clear breath sounds bilaterally. No wheezes, rales, or rhonchi. Saturating well on room air. C/V: Regular rate and rhythm. S1 and S2 auscultated, no edema, peripheral pulses 2+ and intact throughout ABD: Abd is soft, nontender, nondistended EXT: Normal range of motion, no obvious deformity SKIN: No rashes or lesions observed on exposed skin. NEURO: Alert and oriented x 4. Cranial nerves II-XII intact. No focal sensory or strength deficits. - Labs CBC & Chem 7: 02/16/22 04:57 02/16/22 04:57 Labs: Abnormal Lab Results - Last 24 Hours (Table) 02/15/22 02/15/22 02/15/22 Range/Units 12:25 12:25 13:24 RBC (4.10-5.20) X 10*6/uL Hct 46.2 H (34.0-46.0) % MCV 106.5 H (80.0-100.0) fL MCH (27.0-32.0) pg MCHC (32.0-37.0) g/dL Plt Count 148 L (150-450) k/uL Anion Gap (10.00-18.00) mmol/L BUN 18 H (7-17) mg/dL Calcium (8.7-10.3) mg/dL Ur Oxycodone Screen Detected H (NotDetected) Ur Amphetamines Screen Detected H (NotDetected) U Methamphetamines Scrn Detected H (NotDetected) 02/16/22 02/16/22 Range/Units 04:57 04:57 RBC 3.77 L (4.10-5.20) X 10*6/uL Hct (34.0-46.0) % MCV 107.4 H (80.0-100.0) fL MCH 34.2 H (27.0-32.0) pg MCHC 31.9 L (32.0-37.0) g/dL Plt Count (150-450) k/uL Anion Gap 8.60 L (10.00-18.00) mmol/L BUN (7-17) mg/dL Calcium 8.6 L (8.7-10.3) mg/dL Ur Oxycodone Screen (NotDetected) Ur Amphetamines Screen (NotDetected) U Methamphetamines Scrn (NotDetected) Assessment and Plan Assessment: 1. Altered mental status; multiple drug overdose - Urine drug screen is positive for narcotics, amphetamines and methamphetamines; alcohol is negative - Patient received a total of 1 mg of Narcan in ED and was somewhat more arousable - We will monitor closely 2. Multiple substance abuse; urine drug screen is positive for oxycodone, amphetamines and methamphetamines 3. Mild renal injury; BUN is elevated at 18; continue with IV fluid hydration and monitor renal function and electrolytes 4. Hypothyroidism; patient takes Synthroid 75 MCG daily; we will switch to IV levothyroxine. Patient is more alert and able to take medications orally 5. Bipolar disorder; patient takes Abilify, Cymbalta and Topamax; continue to hold patient is more awake and alert DVT prophylaxis; SCDs/subcu heparin CODE STATUS; full code
[2022-02-16] MEDS: NICOTINE 7MG/24HR PATCH TRANSDERM SCH (22:42)
[2022-02-17] MEDS: HEPARIN SODIUM,PORCINE/PF 5,000 UNIT/0.5 ML SYRINGE SQ SCH ×2 (00:06→08:56)
[2022-02-17 08:37] VITALS: BP 105/66; PULSE 78; RESP 16; TEMP 97.6
[2022-02-17] MEDS: NICOTINE 7MG/24HR PATCH TRANSDERM SCH (08:56)
[2022-02-17] MEDS ORDERED: LEVOTHYROXINE 75 MCG TAB PO SCH (11:15)
--- NOTE | 2022-02-17 11:30 | P.DS ---
Providers Date of admission: 02/15/22 15:11 Expected date of discharge: 02/17/22 Attending physician: Dewayne George MD Primary care physician: Dewayne George MD Hospital Course: Final Diagnoses: Altered mental status, acute metabolic and toxic encephalopathy, toxicology screen positive for oxycodone, amphetamines and methamphetamines; alcohol is negative. Status post Narcan. Denies suicidal ideations, paranoia or other delusions. Mild acute renal insufficiency, resolved Hypothyroidism History of polysubstance abuse, counseled regarding abstaining from all substances including alcohol, marijuana, methamphetamines Bipolar disorder Nicotine dependence Cannabis use disorder Methamphetamine use disorder Hospital course:Cordelia Reid is a 41 yo F with PMH of bipolar disorder, polysubstance use, current methamphetamine abuse, currently homeless, hypothyroidism, brought into the ER by EMS regarding concern for overdose. Patient reported smoking methamphetamine, drinking 1 beer and consumed 1 Percocet that she purchased from the street. Discovered unresponsive at home by family. Received intranasal Narcan, and regained consciousness. Denies any suicidal ideations, homicidal ideations, hallucinations, delusions. Brain CT and chest x-ray reported negative.She denies any problems today, states she feels fine and is requesting discharge. No chest pain, shortness of breath, headache, fever, chills. Patient will be discharged home today in a stable condition with guarded prognosis after labs drawn and resources provided to patient as per case management. General: well developed, well nourished female in NAD, calm, cooperative HEENT: NC/AT, mmm Neck: supple, no JVD or thyromegaly CV: RRR, no murmur Lungs: Normal effort, clear throughout Abd: soft, nontender, non distended Neuro: alert and oriented x3, no focal deficit. The impression and plan of care has been dictated as directed. : I performed a history and examination of this patient, discussed the same with the dictator. I agree with the dictator's note ,documented as a scribe. Any additional findings or plans will be noted. Patient Condition at Discharge: Stable Plan - Discharge Summary Discharge Rx Participant: Yes New Discharge Prescriptions: Continue Topiramate [Topamax] 200 mg PO BID ARIPiprazole [Abilify] 10 mg PO HS 15 Days tab DULoxetine HCL [Cymbalta] 60 mg PO BID-W/MEALS 30 Days cap Levothyroxine Sodium [Synthroid] 75 mcg PO DAILY@0630 30 Days tab Nitrofurantoin Monohyd/M-Cryst [Macrobid] 100 mg PO DIRECTED Nicotine 21Mg/24Hr Patch [Habitrol] 1 patch TRANSDERM DAILY Gabapentin [Neurontin] 600 mg PO TID 30 Days cap Ondansetron Odt [Zofran ODT] 4 mg PO BID PRN PRN Reason: Nausea Hyoscyamine Sulfate [Levsin] 0.125 mg PO Q8H PRN PRN Reason: Gi Upset ARIPiprazole IM [Abilify Maintena] 400 mg IM Q30D Discharge Medication List Topiramate [Topamax] 200 mg PO BID 06/26/21 [History] ARIPiprazole [Abilify] 10 mg PO HS 15 Days tab 02/04/22 [Rx] DULoxetine HCL [Cymbalta] 60 mg PO BID-W/MEALS 30 Days cap 02/04/22 [Rx] Gabapentin [Neurontin] 600 mg PO TID 30 Days cap 02/04/22 [Rx] Levothyroxine Sodium [Synthroid] 75 mcg PO DAILY@0630 30 Days tab 02/04/22 [Rx] ARIPiprazole IM [Abilify Maintena] 400 mg IM Q30D 02/15/22 [History] Hyoscyamine Sulfate [Levsin] 0.125 mg PO Q8H PRN 02/15/22 [History] Nicotine 21Mg/24Hr Patch [Habitrol] 1 patch TRANSDERM DAILY 02/15/22 [History] Nitrofurantoin Monohyd/M-Cryst [Macrobid] 100 mg PO DIRECTED 02/15/22 [History] Ondansetron Odt [Zofran ODT] 4 mg PO BID PRN 02/15/22 [History] Follow up Appointment(s)/Referral(s): LEANDRO,Dr. BYNUM. [Other] - 1 Week Dewayne George MD [Primary Care Provider] - 3 Days
[2022-02-17 15:06] LABS: Hepatitis A Antibody IgM Nonreactive (Nonreactive); Hepatitis B Core IgM Nonreactive (Nonreactive); Hepatitis C IgG Antibody Reactive (Nonreactive)
[2022-02-17 15:07] LABS: Hepatitis B Surface Antigen Nonreactive (Nonreactive)
[2022-02-17] MEDS ORDERED: TOPIRAMATE 100 MG TAB PO SCH (21:00)
[2022-02-18] MEDS ORDERED: LEVOTHYROXINE 75 MCG TAB PO SCH (06:30)
[2022-02-18 10:44] LABS: Neisseria gonorrhoeae rRNA Not detected (Not detected)
[2022-02-19 03:39] LABS: HIV 2 AB Non-Reactive (Non-Reactive); HIV AB P24 Non-Reactive (Non-Reactive); HIV P24 AG Non-Reactive (Non-Reactive)
== END 2022-02-17 12:43 | disposition home or self-care (01) | DRG 917 ==
LOC: EC 11:29 → 4SSUR 15:11
PROVIDERS: ADMIT Family Medicine; ATTEND Family Medicine
DX: T40.691A Poisoning by other narcotics, accidental (unintentional), initial encounter (principal); G92.8 Other toxic encephalopathy; M79.7 Fibromyalgia; G40.909 Epilepsy, unspecified, not intractable, without status epilepticus; F41.9 Anxiety disorder, unspecified; F31.9 Bipolar disorder, unspecified; N28.9 Disorder of kidney and ureter, unspecified; F17.290 Nicotine dependence, other tobacco product, uncomplicated; E03.9 Hypothyroidism, unspecified; M19.90 Unspecified osteoarthritis, unspecified site; G89.29 Other chronic pain; M54.9 Dorsalgia, unspecified; F11.10 Opioid abuse, uncomplicated; Z59.00 Homelessness unspecified; F19.10 Other psychoactive substance abuse, uncomplicated; F15.10 Other stimulant abuse, uncomplicated; F12.10 Cannabis abuse, uncomplicated; Z71.51 Drug abuse counseling and surveillance of drug abuser; Z79.82 Long term (current) use of aspirin; Z79.890 Hormone replacement therapy; Z79.899 Other long term (current) drug therapy; Z85.41 Personal history of malignant neoplasm of cervix uteri; Z86.16 Personal history of COVID-19; Z86.14 Personal history of Methicillin resistant Staphylococcus aureus infection
CPT/HCPCS: 36415; 70450; 71045; 80048; 80053; 80074; 80143; 80179; 80306; 80320; 83036; 84443; 85025; 87390; 93005; 96361; 96372; 96374; 99285

== ENCOUNTER 2022-03-25 02:30 | Emergency (ER) | payer OTHER ==
[2022-03-25 05:51] LABS: Glucose,Whole Blood 99 mg/dL (70-110)
[2022-03-25] MEDS ORDERED: diphenhydrAMINE 50 MG/ML 1 ML VIAL IVP STA (06:18)
[2022-03-25] MEDS ORDERED: DEXAMETHASONE SOD PHOSPHATE 10 MG/ML 1 ML VIAL IV STA (06:18)
[2022-03-25] MEDS ORDERED: SODIUM CHLORIDE 0.9% 1,000 ML IV STA (06:18)
[2022-03-25] MEDS ORDERED: METOCLOPRAMIDE 5 MG/ML 2 ML VIAL IVP STA (06:18)
[2022-03-25] MEDS ORDERED: SUMAtriptan succinate 6 MG/0.5 ML VIAL SQ STA (06:19)
--- NOTE | 2022-03-25 06:40 | ED ---
Headache HPI - General Chief Complaint: Headache Stated Complaint: Migraine Time Seen by Provider: 03/25/22 05:56 Source: patient, RN notes reviewed Mode of arrival: ambulatory Limitations: no limitations - History of Present Illness Initial Comments: This is a 42-year-old female with a past medical history of migraines who presents the emergency department for a headache. He states that this is a sharp and throbbing pain in the back of her head. This feels like a typical migraine and she would not describe this as the worse headache of her life. Symptoms started at 10 PM last night. She took ibuprofen with little to no relief. She reports associated nausea and vomiting and photophobia. She does not have any abortive prescription medication. States that she gets migraines every 1-2 months. Denies any fevers, chills, sore throat, cough, dyspnea, chest pain, palpitations, abdominal pain, nausea, vomiting, diarrhea, or back pain. MD Complaint: "migraine" Onset Description: gradual Location: occipital Quality: throbbing, sharp Consistency: constant Associated Symptoms: nausea, vomiting, photophobia - Related Data Home Medications Medication Instructions Recorded Confirmed Topiramate [Topamax] 200 mg PO BID 06/26/21 02/15/22 ARIPiprazole IM [Abilify Maintena] 400 mg IM Q30D 02/15/22 02/15/22 Hyoscyamine Sulfate [Levsin] 0.125 mg PO Q8H PRN 02/15/22 02/15/22 Nicotine 21Mg/24Hr Patch [Habitrol] 1 patch TRANSDERM DAILY 02/15/22 02/15/22 Nitrofurantoin Monohyd/M-Cryst 100 mg PO DIRECTED 02/15/22 02/15/22 [Macrobid] Ondansetron Odt [Zofran ODT] 4 mg PO BID PRN 02/15/22 02/15/22 Previous Rx's Medication Instructions Recorded ARIPiprazole [Abilify] 10 mg PO HS 15 Days tab 02/04/22 DULoxetine HCL [Cymbalta] 60 mg PO BID-W/MEALS 30 Days cap 02/04/22 Gabapentin [Neurontin] 600 mg PO TID 30 Days cap 02/04/22 Levothyroxine Sodium [Synthroid] 75 mcg PO DAILY@0630 30 Days tab 02/04/22 Butalb/Acetaminophen/Caffeine 1 each PO Q4H PRN #12 tab 03/25/22 [Fioricet 50-325-40] Ondansetron Odt [Zofran Odt] 4 mg PO Q8HR PRN #15 tab 03/25/22 SUMAtriptan succinate 100 mg PO DIRECTED PRN #15 03/25/22 tablet Allergies Allergy/AdvReac Type Severity Reaction Status Date / Time aspirin Allergy Unknown Verified 03/25/22 03:32 ibuprofen Allergy Unknown Verified 03/25/22 03:32 Penicillins Allergy Unknown Verified 03/25/22 03:32 Review of Systems ROS Statement: Those systems with pertinent positive or pertinent negative responses have been documented in the HPI. ROS Other: All systems not noted in ROS Statement are negative. Past Medical History Past Medical History: Cancer, Fibromyalgia, Osteoarthritis (OA), Seizure Disorder, Thyroid Disorder Additional Past Medical History / Comment(s): Pt tested covid + on 09/21/[address] George's office. Other hx: MIgraines, chronic back pain, occasional edema legs/feet, hypothyroid, cervical cancer with treatment. History of Any Multi-Drug Resistant Organisms: MRSA Date of last positivie culture/infection: 2007 MDRO Source:: L knee Past Surgical History: Adenoidectomy, Section, Tubal Ligation Additional Past Surgical History / Comment(s): Procedure for cervical cancer/pt cannot recall type of procedure, D&C, lumbar epidurals Past Anesthesia/Blood Transfusion Reactions: Postoperative Nausea & Vomiting (PONV) Additional Past Anesthesia/Blood Transfusion Reaction / Comment(s): Occasional PONV Past Psychological History: Anxiety, Depression Smoking Status: Current some day smoker, Vaper Past Alcohol Use History: Occasional Past Drug Use History: None Reported, Methamphetamine, Prescription Drug Abuse - Past Family History Father History Unknown: Yes Additional Family Medical History / Comment(s): Father is . Mother Family Medical History: No Reported History Additional Family Medical History / Comment(s): Mother is healthy General Exam Limitations: no limitations General appearance: alert, in no apparent distress Head exam: Present: atraumatic, normocephalic, normal inspection Eye exam: Present: normal appearance, PERRL, EOMI. Absent: scleral icterus, conjunctival injection, periorbital swelling Respiratory exam: Present: normal lung sounds bilaterally. Absent: respiratory distress, wheezes, rales, rhonchi, stridor Cardiovascular Exam: Present: regular rate, normal rhythm, normal heart sounds. Absent: systolic murmur, diastolic murmur, rubs, gallop, clicks GI/Abdominal exam: Present: soft, normal bowel sounds. Absent: distended, tenderness, guarding, rebound, rigid Neurological exam: Present: alert, oriented X3, CN II-XII intact Psychiatric exam: Present: normal affect, normal mood Skin exam: Present: warm, dry, intact, normal color. Absent: rash Course Vital Signs 03/25/22 03:32 Pulse Rate 78 Respiratory 16 Rate O2 Sat by Pulse 98 Oximetry Medical Decision Making - Medical Decision Making This is a 42-year-old female who presents to the emergency department for a migraine. She was given a migraine cocktail consisting of IV fluids, Reglan, Decadron, Toradol, and Benadryl. She was also given subcutaneous sumatriptan. She reported significant symptomatic improvement following medication administration. Prescription for sumatriptan, Fioricet, and Zofran provided with dosing instructions reviewed with the patient. Advised she try the sumatriptan and before using the Fioricet. She will follow up with her primary care provider to reevaluate symptoms and discuss ongoing prescriptions for abortive migraine medication if indicated. Return precautions reviewed in depth, the patient is instructed to return to the emergency department with any new, worsening, or concerning symptoms. Patient verbalized understanding. This case was discussed in detail with the attending ED physician. Presentation, findings, and treatment plan discussed in detail as well. - Lab Data Lab Results 03/25/22 Range/Units 05:50 POC Glucose (mg/dL) 99 (70-110) mg/dL POC Glu Dispensary Technician Donell Maxwell Disposition Clinical Impression: Migraine Disposition: HOME SELF-CARE Instructions (If sedation given, give patient instructions): Migraine Headache (ED) Additional Instructions: Return to the emergency department with any new, worsening, or concerning symptoms. Take the sumatriptan at the onset of a migraine, repeat dose in 2 hours if symptoms are still present. If the sumatriptan is not effective, try taking the Fioricet. You can take 1-2 tablets every 4 hours as needed, do not exceed 6 tablets in 24 hours. The Zofran can be taken up to every 8 hours as needed for nausea and vomiting. Follow up with your primary care provider in 1- 2 days. Prescriptions: Butalb/Acetaminophen/Caffeine [Fioricet 50-325-40] 1 each PO Q4H PRN #12 tab PRN Reason: Migraine Headache SUMAtriptan succinate 100 mg PO DIRECTED PRN #15 tablet PRN Reason: Migraine Headache Ondansetron Odt [Zofran Odt] 4 mg PO Q8HR PRN #15 tab PRN Reason: Nausea And Vomiting Is patient prescribed a controlled substance at d/c from ED?: Yes Referrals: Dewayne George MD [Primary Care Provider] - 1-2 days
[2022-03-25] MEDS ORDERED: KETOROLAC 15 MG/ML 1 ML VIAL IVP STA (06:43)
[2022-03-25 08:16] VITALS: BP 121/64; PULSE 86; RESP 18; TEMP 97.5
== END 2022-03-25 08:15 | disposition home or self-care (01) ==
LOC: EC 02:30
DX: G43.909 Migraine, unspecified, not intractable, without status migrainosus (principal); M19.90 Unspecified osteoarthritis, unspecified site; E07.9 Disorder of thyroid, unspecified; F41.9 Anxiety disorder, unspecified; F32.A Depression, unspecified; F17.290 Nicotine dependence, other tobacco product, uncomplicated; Z88.0 Allergy status to penicillin; Z88.6 Allergy status to analgesic agent; Z79.899 Other long term (current) drug therapy
CPT/HCPCS: 36415; 99284; 96374; 96375 ×3; 96361; 96372; J3030; J1200; J1100; J2765; J1885

== ENCOUNTER 2022-06-23 06:12 | Inpatient (IN) | payer OTHER ==
[2022-06-23 06:23] LABS: Glucose,Whole Blood 125 mg/dL (70-110)
[2022-06-23] MEDS ORDERED: SODIUM CHLORIDE 0.9% 1,000 ML IV ONE (06:31)
--- NOTE | 2022-06-23 06:38 | ED ---
General Adult HPI - General Source: patient, RN notes reviewed, old records reviewed Mode of arrival: EMS - History of Present Illness -: days(s) (1) Associated Symptoms: nausea/vomiting, other (diarrhea) Treatments Prior to Arrival: other (iv, glucose, zofran) <Woo Bustos - Last Filed: 06/23/22 16:53> <Conor Johnson - Last Filed: 06/23/22 18:41> - General Chief complaint: Altered Mental Status Stated complaint: Poss seizure Time Seen by Provider: 06/23/22 06:23 - History of Present Illness Initial comments: 42-year-old female presents via EMS, alert and oriented 4,presents with complaints of watery diarrhea that started today with nausea vomiting. States unable to keep anything down. States that she thinks that she may have been given drugs without her knowledge. Patient does have a history of migraines, chronic back pain, depression, drug abuse. (Woo Bustos) - Related Data Home Medications Medication Instructions Recorded Confirmed Topiramate [Topamax] 200 mg PO BID 06/26/21 06/23/22 Nicotine 21Mg/24Hr Patch [Habitrol] 1 patch TRANSDERM DAILY 02/15/22 06/23/22 Cyclobenzaprine [Flexeril] 10 mg PO BID PRN 06/23/22 06/23/22 DULoxetine HCL [Cymbalta] 60 mg PO DAILY 06/23/22 06/23/22 Diclofenac Sodium Gel [Voltaren 4 gm TOPICAL QID PRN 06/23/22 06/23/22 Gel] Gabapentin 600 mg PO BID 06/23/22 06/23/22 Meloxicam [Mobic] 7.5 mg PO DAILY 06/23/22 06/23/22 Previous Rx's Medication Instructions Recorded Levothyroxine Sodium [Synthroid] 75 mcg PO DAILY@0630 30 Days tab 02/04/22 Allergies Allergy/AdvReac Type Severity Reaction Status Date / Time aspirin Allergy Unknown Verified 06/23/22 09:50 ibuprofen Allergy Unknown Verified 06/23/22 09:50 Penicillins Allergy Unknown Verified 06/23/22 09:50 Review of Systems ROS Other: All systems not noted in ROS Statement are negative. <Woo Bustos - Last Filed: 06/23/22 16:53> ROS Other: All systems not noted in ROS Statement are negative. <AlexConor - Last Filed: 06/23/22 18:41> ROS Statement: Those systems with pertinent positive or pertinent negative responses have been documented in the HPI. Past Medical History Past Medical History: Cancer, Fibromyalgia, Osteoarthritis (OA), Seizure Disorder, Thyroid Disorder Additional Past Medical History / Comment(s): Pt tested covid + on 09/21/[address] George's office. Other hx: MIgraines, chronic back pain, occasional edema legs/feet, hypothyroid, cervical cancer with treatment. History of Any Multi-Drug Resistant Organisms: MRSA Date of last positivie culture/infection: 2007 MDRO Source:: L knee Past Surgical History: Adenoidectomy, Section, Tubal Ligation Additional Past Surgical History / Comment(s): Procedure for cervical cancer/pt cannot recall type of procedure, D&C, lumbar epidurals Past Anesthesia/Blood Transfusion Reactions: Postoperative Nausea & Vomiting (PONV) Additional Past Anesthesia/Blood Transfusion Reaction / Comment(s): Occasional PONV Past Psychological History: Anxiety, Depression Smoking Status: Current some day smoker, Vaper Past Alcohol Use History: Occasional Past Drug Use History: None Reported, Methamphetamine, Prescription Drug Abuse - Past Family History Father History Unknown: Yes Additional Family Medical History / Comment(s): Father is . Mother Family Medical History: No Reported History Additional Family Medical History / Comment(s): Mother is healthy <Woo Bustos - Last Filed: 06/23/22 16:53> General Exam General appearance: alert, in no apparent distress Head exam: Present: atraumatic Eye exam: Absent: scleral icterus, periorbital swelling ENT exam: Present: mucous membranes dry Neck exam: Absent: meningismus Respiratory exam: Absent: respiratory distress, accessory muscle use Cardiovascular Exam: Present: regular rate GI/Abdominal exam: Present: soft, normal bowel sounds. Absent: distended, tenderness, guarding, rebound, rigid Extremities exam: Present: normal capillary refill Neurological exam: Present: alert, oriented X3 Psychiatric exam: Present: normal affect, normal mood Skin exam: Present: warm, dry. Absent: cyanosis, diaphoretic, pallor <Woo Bustos - Last Filed: 06/23/22 16:53> Course - Reevaluation(s) Time: 10:06 Time: 11:31 <Woo Bustos - Last Filed: 06/23/22 16:53> Vital Signs 06/23/22 06/23/22 06/23/22 06:13 08:47 09:45 Temperature 97.1 F L Pulse Rate 82 71 76 Respiratory 20 18 18 Rate Blood Pressure 119/76 89/57 96/58 O2 Sat by Pulse 100 97 98 Oximetry - Reevaluation(s) Reevaluation #1: 06/23/22 10:[address] George who recommended EPS admission and him on consult. (Woo Bustos) Reevaluation #2: 06/23/22 11:31 Patient delusional stating that she came into the hospital on her own. States does not remember any doctors or anyone speaking to her since being here. Argumentative regarding having EPS come speak to her. States she is going to be calling her electrical tech. (Woo Bustos) Medical Decision Making - Lab Data Result diagrams: 06/23/22 06:45 06/23/22 06:45 <Woo Bustos - Last Filed: 06/23/22 16:53> - Lab Data Result diagrams: 06/23/22 06:45 06/23/22 06:45 <Conor Johnson - Last Filed: 06/23/22 18:41> - Medical Decision Making 42-year-old female presents via EMS, alert and oriented 4,presents with compla ints of watery diarrhea that started today with nausea vomiting. States unable to keep anything down. States that she thinks that she may have been given drugs without her knowledge. Patient does have a history of migraines, chronic back pain, depression, drug abuse. Patient's last admission 02/15/2022 for altered mental status, acute metabolic and toxic encephalopathy. At that time a toxicology screen was positive for oxycodone, amphetamines and methamphetamines. She does have a history of polysubstance abuse including alcohol and marijuana methamphetamines. She also has a history of bipolar disorder. CT of the brain interpreted by me shows no evidence of intracranial bleed, midline shift or skull fracture. Radiologist interpretation no acute intracranial process or significant change from prior dated 02/15/2022. Influenza and coronavirus an RSV swab negative. EtOH negative. Mild leukocytosis likely from patient's vomiting. Patient was given IV hydration. Urine drug screen comes back positive for tricyclic antidepressants, amphetamines, methadone and marijuana While awaiting labs she became argumentative stating no provider has been to see her since coming in. I explained that I was in the room multiple times to listen to her concerns regarding possible poisoning. She continues to argue stating she is going to call her electrical tech. She believes that someone is trying to poison her and giving her drugs. She appears acutely psychotic with pressured speech. I did speak with her primary care Dr George who recommended an EPS evaluation. EPS nurse at bedside to speak with patient. Case discussed with Dr. Johnson and petjanette and cert filed. Was pt. sent in by a medical professional or institution? @ -no Did you speak to anyone other than the patient for history? @ no Did you review nursing and triage notes? @ -yes i agree Were old charts reviewed? @ -yes previous psych admissions Differential Diagnosis? @ -Differential Altered Mental Status: Hypoglycemia, DKA, hypercapnia, ETOH, overdose, CO poisoning, trauma, myxedema coma, HTN encephalopathy, infection, encephalitis, psychosis, intercranial hemorrhage, hepatic encephalopathy, meningitis, CVA, this is not meant to be an all-inclusive list EKG interpreted by me (3pts min.)? @ -[none] X-rays interpreted by me (1pt min.)? @ yes as above CT interpreted by me (1pt min.)? @ -yes as above U/S interpreted by me (1pt. min.)? @ -[none] What testing was considered but not performed? (CT, X-rays, U/S, labs)? Why? @ none What meds were considered but not given? Why? @ -none Did you discuss the management of the patient with other professionals? @ -psych nurse. Dr George Did you reconcile home meds? @ no Was smoking cessation discussed for >3mins.? @ -no Was critical care preformed (if so, how long)? @ no Were there social determinants of health that impacted care today? How? (Homelessness, low income, unemployed, alcoholism, drug addiction, transportation, low edu. Level, literacy, decrease access to med. care, [facility], rehab)? @ -drug addiction, homelessness Was there de-escalation of care discussed even if they declined? (Discuss DNR or withdrawal of care, Hospice)? @ no What co-morbidities impacted this encounter? (DM, HTN, Smoking, COPD, CAD, Cancer, CVA, Hep., AIDS, mental health diagnosis, sleep apnea, morbid obesity)? @ migraines, back pain, depression, drug abuse, mental illness Was patient admitted / discharged? @ -admitted Undiagnosed new problem with uncertain prognosis? @ -[none] Drug Therapy requiring intensive monitoring for toxicity (Heparin, Nitro, Insulin, Cardizem)? @ no Were any procedures done? @ -no Diagnosis/symptom? @ delusional, polysubstance abuse, altered mental status Acute, or Chronic, or Acute on Chronic? @ -acute Uncomplicated (without systemic symptoms) or Complicated (systemic symptoms)? @ complicated Side effects of treatment? @ -[none] Exacerbation, Progression, or Severe Exacerbation] @ -[no] Poses a threat to life or bodily function? @ -[no] (Woo Bustos) Clinical CERT was completed by myself. I agree with the above assessment. (Conor Veloz) - Lab Data Lab Results 06/23/22 06/23/22 06/23/22 Range/Units 06:18 06:36 06:45 WBC 10.8 H (3.8-10.6) k/uL RBC 3.92 (3.80-5.40) m/uL Hgb 13.3 (11.4-16.0) gm/dL Hct 40.0 (34.0-46.0) % MCV 102.2 H (80.0-100.0) fL MCH 34.0 (25.0-35.0) pg MCHC 33.3 (31.0-37.0) g/dL RDW 13.8 (11.5-15.5) % Plt Count 139 L (150-450) k/uL MPV 7.7 Neutrophils % 77 % Lymphocytes % 15 % Monocytes % 4 % Eosinophils % 2 % Basophils % 0 % Neutrophils # 8.3 H (1.3-7.7) k/uL Lymphocytes # 1.6 (1.0-4.8) k/uL Monocytes # 0.4 (0-1.0) k/uL Eosinophils # 0.2 (0-0.7) k/uL Basophils # 0.0 (0-0.2) k/uL Macrocytosis Slight Sodium (137-145) mmol/L Potassium (3.5-5.1) mmol/L Chloride (98-107) mmol/L Carbon Dioxide (22-30) mmol/L Anion Gap mmol/L BUN (7-17) mg/dL Creatinine (0.52-1.04) mg/dL Est GFR (CKD-EPI)AfAm (>60 ml/min/1.73 sqM) Est GFR (CKD-EPI)NonAf (>60 ml/min/1.73 sqM) Glucose (74-99) mg/dL POC Glucose (mg/dL) 125 H (70-110) mg/dL POC Glu Land Degradation Analyst ID Omaira Mojica Calcium (8.4-10.2) mg/dL Total Bilirubin (0.2-1.3) mg/dL AST (14-36) U/L ALT (4-34) U/L Alkaline Phosphatase (38-126) U/L Total Protein (6.3-8.2) g/dL Albumin (3.5-5.0) g/dL Urine Color Urine Appearance (Clear) Urine pH (5.0-8.0) Ur Specific [place] (1.001-1.035) Urine Protein (Negative) Urine Glucose (UA) (Negative) Urine Ketones (Negative) Urine Blood (Negative) Urine Nitrite (Negative) Urine Bilirubin (Negative) Urine Urobilinogen (<2.0) mg/dL Ur Leukocyte Esterase (Negative) Urine RBC (0-5) /hpf Urine WBC (0-5) /hpf Ur Squamous Epith Cells (0-4) /hpf Urine Bacteria (None) /hpf Hyaline Casts (0-2) /lpf Urine Mucus (None) /hpf Urine HCG, Qual (Not Detectd) Salicylates mg/dL Urine Opiates Screen (NotDetected) Ur Oxycodone Screen (NotDetected) Urine Methadone Screen (NotDetected) Ur Propoxyphene Screen (NotDetected) Acetaminophen ug/mL Ur Barbiturates Screen (NotDetected) U Tricyclic Antidepress (NotDetected) Ur Phencyclidine Scrn (NotDetected) Ur Amphetamines Screen (NotDetected) U Methamphetamines Scrn (NotDetected) U Benzodiazepines Scrn (NotDetected) Urine Cocaine Screen (NotDetected) U Marijuana (THC) Screen (NotDetected) Serum Alcohol mg/dL Influenza Type A (PCR) Not Detected (Not Detectd) Influenza Type B (PCR) Not Detected (Not Detectd) RSV (PCR) Not Detected (Not Detectd) SARS-CoV-2 (PCR) Not Detected (Not Detectd) 06/23/22 06/23/22 06/23/22 Range/Units 06:45 09:51 11:00 WBC (3.8-10.6) k/uL RBC (3.80-5.40) m/uL Hgb (11.4-16.0) gm/dL Hct (34.0-46.0) % MCV (80.0-100.0) fL MCH (25.0-35.0) pg MCHC (31.0-37.0) g/dL RDW (11.5-15.5) % Plt Count (150-450) k/uL MPV Neutrophils % % Lymphocytes % % Monocytes % % Eosinophils % % Basophils % % Neutrophils # (1.3-7.7) k/uL Lymphocytes # (1.0-4.8) k/uL Monocytes # (0-1.0) k/uL Eosinophils # (0-0.7) k/uL Basophils # (0-0.2) k/uL Macrocytosis Sodium 141 (137-145) mmol/L Potassium 3.5 (3.5-5.1) mmol/L Chloride 111 H (98-107) mmol/L Carbon Dioxide 19 L (22-30) mmol/L Anion Gap 11 mmol/L BUN 25 H (7-17) mg/dL Creatinine 0.88 (0.52-1.04) mg/dL Est GFR (CKD-EPI)AfAm >90 (>60 ml/min/1.73 sqM) Est GFR (CKD-EPI)NonAf 81 (>60 ml/min/1.73 sqM) Glucose 115 H (74-99) mg/dL POC Glucose (mg/dL) (70-110) mg/dL POC Glu Land Degradation Analyst ID Calcium 8.7 (8.4-10.2) mg/dL Total Bilirubin 0.8 (0.2-1.3) mg/dL AST 51 H (14-36) U/L ALT 38 H (4-34) U/L Alkaline Phosphatase 65 (38-126) U/L Total Protein 8.0 (6.3-8.2) g/dL Albumin 4.5 (3.5-5.0) g/dL Urine Color Yellow Urine Appearance Cloudy H (Clear) Urine pH 5.5 (5.0-8.0) Ur Specific [place] 1.026 (1.001-1.035) Urine Protein Trace H (Negative) Urine Glucose (UA) Negative (Negative) Urine Ketones 1+ H (Negative) Urine Blood Negative (Negative) Urine Nitrite Positive H (Negative) Urine Bilirubin Negative (Negative) Urine Urobilinogen <2.0 (<2.0) mg/dL Ur Leukocyte Esterase Trace H (Negative) Urine RBC 1 (0-5) /hpf Urine WBC 4 (0-5) /hpf Ur Squamous Epith Cells 2 (0-4) /hpf Urine Bacteria Many H (None) /hpf Hyaline Casts 1 (0-2) /lpf Urine Mucus Rare H (None) /hpf Urine HCG, Qual (Not Detectd) Salicylates 1.5 mg/dL Urine Opiates Screen Not Detected (NotDetected) Ur Oxycodone Screen Not Detected (NotDetected) Urine Methadone Screen Not Detected (NotDetected) Ur Propoxyphene Screen Not Detected (NotDetected) Acetaminophen <10.0 ug/mL Ur Barbiturates Screen Not Detected (NotDetected) U Tricyclic Antidepress Detected H (NotDetected) Ur Phencyclidine Scrn Not Detected (NotDetected) Ur Amphetamines Screen Detected H (NotDetected) U Methamphetamines Scrn Detected H (NotDetected) U Benzodiazepines Scrn Not Detected (NotDetected) Urine Cocaine Screen Not Detected (NotDetected) U Marijuana (THC) Screen Detected H (NotDetected) Serum Alcohol <10 mg/dL Influenza Type A (PCR) (Not Detectd) Influenza Type B (PCR) (Not Detectd) RSV (PCR) (Not Detectd) SARS-CoV-2 (PCR) (Not Detectd) 06/23/22 Range/Units 11:00 WBC (3.8-10.6) k/uL RBC (3.80-5.40) m/uL Hgb (11.4-16.0) gm/dL Hct (34.0-46.0) % MCV (80.0-100.0) fL MCH (25.0-35.0) pg MCHC (31.0-37.0) g/dL RDW (11.5-15.5) % Plt Count (150-450) k/uL MPV Neutrophils % % Lymphocytes % % Monocytes % % Eosinophils % % Basophils % % Neutrophils # (1.3-7.7) k/uL Lymphocytes # (1.0-4.8) k/uL Monocytes # (0-1.0) k/uL Eosinophils # (0-0.7) k/uL Basophils # (0-0.2) k/uL Macrocytosis Sodium (137-145) mmol/L Potassium (3.5-5.1) mmol/L Chloride (98-107) mmol/L Carbon Dioxide (22-30) mmol/L Anion Gap mmol/L BUN (7-17) mg/dL Creatinine (0.52-1.04) mg/dL Est GFR (CKD-EPI)AfAm (>60 ml/min/1.73 sqM) Est GFR (CKD-EPI)NonAf (>60 ml/min/1.73 sqM) Glucose (74-99) mg/dL POC Glucose (mg/dL) (70-110) mg/dL POC Glu Land Degradation Analyst ID Calcium (8.4-10.2) mg/dL Total Bilirubin (0.2-1.3) mg/dL AST (14-36) U/L ALT (4-34) U/L Alkaline Phosphatase (38-126) U/L Total Protein (6.3-8.2) g/dL Albumin (3.5-5.0) g/dL Urine Color Urine Appearance (Clear) Urine pH (5.0-8.0) Ur Specific [place] (1.001-1.035) Urine Protein (Negative) Urine Glucose (UA) (Negative) Urine Ketones (Negative) Urine Blood (Negative) Urine Nitrite (Negative) Urine Bilirubin (Negative) Urine Urobilinogen (<2.0) mg/dL Ur Leukocyte Esterase (Negative) Urine RBC (0-5) /hpf Urine WBC (0-5) /hpf Ur Squamous Epith Cells (0-4) /hpf Urine Bacteria (None) /hpf Hyaline Casts (0-2) /lpf Urine Mucus (None) /hpf Urine HCG, Qual Not Detected (Not Detectd) Salicylates mg/dL Urine Opiates Screen (NotDetected) Ur Oxycodone Screen (NotDetected) Urine Methadone Screen (NotDetected) Ur Propoxyphene Screen (NotDetected) Acetaminophen ug/mL Ur Barbiturates Screen (NotDetected) U Tricyclic Antidepress (NotDetected) Ur Phencyclidine Scrn (NotDetected) Ur Amphetamines Screen (NotDetected) U Methamphetamines Scrn (NotDetected) U Benzodiazepines Scrn (NotDetected) Urine Cocaine Screen (NotDetected) U Marijuana (THC) Screen (NotDetected) Serum Alcohol mg/dL Influenza Type A (PCR) (Not Detectd) Influenza Type B (PCR) (Not Detectd) RSV (PCR) (Not Detectd) SARS-CoV-2 (PCR) (Not Detectd) Disposition Decision Date: 06/23/22 <Woo Bustos - Last Filed: 06/23/22 16:53> <Conor Johnson - Last Filed: 06/23/22 18:41> Clinical Impression: Altered mental status, Polysubstance abuse, Acute psychosis Disposition: ADMITTED IP TO THIS HOSP Referrals: Dewayne George MD [Primary Care Provider] - 1-2 days
[2022-06-23 06:53] LABS: Basophils % (A) 0 %; Eosinophils # (A) 0.2 k/uL (0-0.7); Eosinophils % (A) 2 %; HGB 13.3 gm/dL (11.4-16.0); Lymphocytes # (A) 1.6 k/uL (1.0-4.8); Lymphocytes % (A) 15 %; MCHC 33.3 g/dL (31.0-37.0); MCV 102.2 fL (80.0-100.0); Macrocytosis Slight; Mean Platelet Volume 7.7; Monocytes # (A) 0.4 k/uL (0-1.0); Monocytes % (A) 4 %; Neutrophils # (A) 8.3 k/uL (1.3-7.7); Neutrophils % (A) 77 %; Platelet Count 139 k/uL (150-450); RBC 3.92 m/uL (3.80-5.40); RDW 13.8 % (11.5-15.5); WBC 10.8 k/uL (3.8-10.6)
[2022-06-23 07:27] LABS: ALT 38 U/L (4-34); AST 51 U/L (14-36); African American GFR (CKD) >90 (>60 ml/min/1.73 sqM); Albumin 4.5 g/dL (3.5-5.0); Alcohol <10 mg/dL; Alkaline Phosphatase 65 U/L (38-126); Anion Gap 11 mmol/L; Blood Urea Nitrogen 25 mg/dL (7-17); Calcium 8.7 mg/dL (8.4-10.2); Carbon Dioxide 19 mmol/L (22-30); Chloride 111 mmol/L (98-107); Glucose 115 mg/dL (74-99); Non-African American GFR(CKD) 81 (>60 ml/min/1.73 sqM); Potassium 3.5 mmol/L (3.5-5.1); Sodium 141 mmol/L (137-145); Total Bilirubin 0.8 mg/dL (0.2-1.3)
--- NOTE | 2022-06-23 08:14 | CT ---
EXAMINATION TYPE: CT brain wo con CT DLP: 1113.9 mGycm, Automated exposure control for dose reduction was used. DATE OF EXAM: 06/23/2022 8:03 AM COMPARISON: Multiple CT brains with most recent 02/15/2022. CLINICAL INDICATION:Female, 42 years old with history of altered mental, AMS TECHNIQUE: Brain: Multiple axial CT images of the brain were obtained without IV contrast. Coronal and sagittal reformats reviewed. FINDINGS: Brain: Extra-axial spaces: No abnormal extra-axial fluid collections. Ventricular system: Within normal limits Cerebral parenchyma: No acute intraparenchymal hemorrhage or mass effect. The zhong-white junction is well differentiated. Cerebellum: Unremarkable. Mass effect: No evidence of midline shift. Intracranial vasculature: unremarkable Soft tissues: Normal. Calvarium/osseous structures: No depressed skull fracture. Paranasal sinuses and mastoid air cells: Clear Visualized orbits: Orbital contents are intact. IMPRESSION: No acute intracranial process or significant change from prior.
[2022-06-23] MEDS: SODIUM CHLORIDE 0.9% 1,000 ML IV SCH ×2 (08:57→21:04)
[2022-06-23] MEDS ORDERED: SODIUM CHLORIDE 0.9% 500 ML 500 ML IV ONE (09:07)
[2022-06-23] MEDS ORDERED: NALOXONE 0.4 MG/ML 1 ML VIAL IVP PRN (09:48)
[2022-06-23 10:39] LABS: Acetaminophen <10.0 ug/mL; Salicylate 1.5 mg/dL
[2022-06-23 11:21] LABS: Amphetamine Screen,Urine Detected (NotDetected); Barbiturate Screen,Urine Not Detected (NotDetected); Benzodiazepines Screen,Urine Not Detected (NotDetected); Cocaine Screen,Urine Not Detected (NotDetected); Methadone Screen, Urine Not Detected (NotDetected); Opiate Screen,Urine Not Detected (NotDetected); Oxycodone Screen, Urine Not Detected (NotDetected); Phencyclidine Screen,Urine Not Detected (NotDetected); Tricyclic Antidepressant,Urine Detected (NotDetected); Urn Cannabinoid Scrn Detected (NotDetected)
[2022-06-23 11:32] LABS: Appearance,Urine Cloudy (Clear); Bacteria,Urine Many /hpf; Bilirubin,Urine Negative (Negative); Blood,Urine Negative (Negative); Color,Urine Yellow; Glucose,Urine (UA) Negative (Negative); Hyaline Casts,Urine 1 /lpf (0-2); Ketones,Urine 1+ (Negative); Leukocyte Esterase,Urine Trace (Negative); Mucus,Urine Rare /hpf; Nitrite,Urine Positive (Negative); PH, Urine 5.5 (5.0-8.0); Protein,Urine Trace (Negative); RBC,Urine 1 /hpf (0-5); Specific Gravity,Urine 1.026 (1.001-1.035); Squamous Epithelial Cell,Urine 2 /hpf (0-4); Urobilinogen,Urine <2.0 mg/dL (<2.0); WBC,Urine 4 /hpf (0-5)
--- NOTE | 2022-06-23 15:31 | XR ---
EXAMINATION TYPE: XR chest 2V DATE OF EXAM: 06/23/2022 COMPARISON: Chest x-ray February 15, 2022 HISTORY: Altered mental status and weakness. TECHNIQUE: Frontal and lateral views of the chest are obtained. FINDINGS: There is no suspicious new focal air space opacity, pleural effusion, or pneumothorax seen . The cardiac silhouette size is stable and within normal limits. Underlying scoliosis is redemonstr ated. IMPRESSION: No acute cardiopulmonary process. No significant change from prior.
[2022-06-23] MEDS ORDERED: MAG HYDROX/AL HYDROX/SIMETH 30 ML CUP PO PRN (20:56)
[2022-06-23] MEDS ORDERED: HALOPERIDOL LACTATE 5 MG/ML 1 ML VIAL IM PRN (20:56)
[2022-06-23] MEDS ORDERED: MAGNESIUM HYDROXIDE 2,400 MG/10 ML CUP PO PRN (20:56)
[2022-06-23] MEDS ORDERED: LORazepam 1 MG TAB PO PRN (20:56)
[2022-06-23] MEDS ORDERED: haloperidoL 5 MG TAB PO PRN (20:57)
[2022-06-23] MEDS ORDERED: LORazepam 2 MG/ML INJ IM PRN (20:57)
[2022-06-23] MEDS: GABAPENTIN 300 MG CAP PO SCH (21:07)
[2022-06-23] MEDS: TOPIRAMATE 100 MG TAB PO SCH (21:35)
[2022-06-24] MEDS: DULoxetine HCL 60 MG CAPSULE.DR PO SCH (09:41)
[2022-06-24] MEDS: GABAPENTIN 300 MG CAP PO SCH ×2 (09:41→21:26)
[2022-06-24] MEDS: LEVOTHYROXINE 75 MCG TAB PO SCH (09:41)
[2022-06-24] MEDS: MELOXICAM 7.5 MG TAB PO SCH (09:42)
[2022-06-24] MEDS: TOPIRAMATE 100 MG TAB PO SCH ×2 (09:42→21:26)
[2022-06-24] MEDS: NICOTINE 14MG/24HR PATCH TRANSDERM SCH ×2 (10:12→17:32)
[2022-06-24] MEDS ORDERED: hydrOXYzine pamoate 25 MG CAP PO PRN (11:51)
--- NOTE | 2022-06-24 11:55 | P.HP ---
Psychiatric H&P - . H&P Date: 06/24/22 History & Physical: Allergies Allergy/AdvReac Type Severity Reaction Status Date / Time aspirin Allergy Unknown Verified 06/23/22 09:50 ibuprofen Allergy Unknown Verified 06/23/22 09:50 Penicillins Allergy Unknown Verified 06/23/22 09:50 Vital Signs Temp 98.3 F 06/23/22 21:38 Pulse 100 06/23/22 21:38 Resp 18 06/23/22 21:38 BP 117/60 06/23/22 21:38 Pulse Ox 97 06/23/22 21:38 FiO2 Intake & Output 06/23/22 06/24/22 06/24/22 18:59 06:59 18:59 Weight 60.237 kg Laboratory Last Values WBC 10.8 k/uL (3.8-10.6) H 06/23/22 06:45 RBC 3.92 m/uL (3.80-5.40) 06/23/22 06:45 Hgb 13.3 gm/dL (11.4-16.0) 06/23/22 06:45 Hct 40.0 % (34.0-46.0) 06/23/22 06:45 MCV 102.2 fL (80.0-100.0) H 06/23/22 06:45 MCH 34.0 pg (25.0-35.0) 06/23/22 06:45 MCHC 33.3 g/dL (31.0-37.0) 06/23/22 06:45 RDW 13.8 % (11.5-15.5) 06/23/22 06:45 Plt Count 139 k/uL (150-450) L 06/23/22 06:45 MPV 7.7 06/23/22 06:45 Neutrophils % 77 % 06/23/22 06:45 Lymphocytes % 15 % 06/23/22 06:45 Monocytes % 4 % 06/23/22 06:45 Eosinophils % 2 % 06/23/22 06:45 Basophils % 0 % 06/23/22 06:45 Neutrophils # 8.3 k/uL (1.3-7.7) H 06/23/22 06:45 Lymphocytes # 1.6 k/uL (1.0-4.8) 06/23/22 06:45 Monocytes # 0.4 k/uL (0-1.0) 06/23/22 06:45 Eosinophils # 0.2 k/uL (0-0.7) 06/23/22 06:45 Basophils # 0.0 k/uL (0-0.2) 06/23/22 06:45 Macrocytosis Slight 06/23/22 06:45 Sodium 141 mmol/L (137-145) 06/23/22 06:45 Potassium 3.5 mmol/L (3.5-5.1) 06/23/22 06:45 Chloride 111 mmol/L (98-107) H 06/23/22 06:45 Carbon Dioxide 19 mmol/L (22-30) L 06/23/22 06:45 Anion Gap 11 mmol/L 06/23/22 06:45 BUN 25 mg/dL (7-17) H 06/23/22 06:45 Creatinine 0.88 mg/dL (0.52-1.04) 06/23/22 06:45 Est GFR (CKD-EPI)AfAm >90 (>60 ml/min/1.73 sqM) 06/23/22 06:45 Est GFR (CKD-EPI)NonAf 81 (>60 ml/min/1.73 sqM) 06/23/22 06:45 Glucose 115 mg/dL (74-99) H 06/23/22 06:45 POC Glucose (mg/dL) 125 mg/dL (70-110) H 06/23/22 06:18 POC Glu Hammer Runner Omaira Pascual 06/23/22 06:[address] Glu mg/dL 109 06/23/22 06:45 Hemoglobin A1c 5.4 % (0.0-6.0) 06/23/22 06:45 Calcium 8.7 mg/dL (8.4-10.2) 06/23/22 06:45 Total Bilirubin 0.8 mg/dL (0.2-1.3) 06/23/22 06:45 AST 51 U/L (14-36) H 06/23/22 06:45 ALT 38 U/L (4-34) H 06/23/22 06:45 Alkaline Phosphatase 65 U/L (38-126) 06/23/22 06:45 Total Protein 8.0 g/dL (6.3-8.2) 06/23/22 06:45 Albumin 4.5 g/dL (3.5-5.0) 06/23/22 06:45 TSH 3.440 mIU/L (0.465-4.680) 06/23/22 06:45 Urine Color Yellow 06/23/22 11:00 Urine Appearance Cloudy (Clear) H 06/23/22 11:00 Urine pH 5.5 (5.0-8.0) 06/23/22 11:00 Ur Specific Oxly 1.026 (1.001-1.035) 06/23/22 11:00 Urine Protein Trace (Negative) H 06/23/22 11:00 Urine Glucose (UA) Negative (Negative) 06/23/22 11:00 Urine Ketones 1+ (Negative) H 06/23/22 11:00 Urine Blood Negative (Negative) 06/23/22 11:00 Urine Nitrite Positive (Negative) H 06/23/22 11:00 Urine Bilirubin Negative (Negative) 06/23/22 11:00 Urine Urobilinogen <2.0 mg/dL (<2.0) 06/23/22 11:00 Ur Leukocyte Esterase Trace (Negative) H 06/23/22 11:00 Urine RBC 1 /hpf (0-5) 06/23/22 11:00 Urine WBC 4 /hpf (0-5) 06/23/22 11:00 Ur Squamous Epith Cells 2 /hpf (0-4) 06/23/22 11:00 Urine Bacteria Many /hpf (None) H 06/23/22 11:00 Hyaline Casts 1 /lpf (0-2) 06/23/22 11:00 Urine Mucus Rare /hpf (None) H 06/23/22 11:00 Urine HCG, Qual Not Detected (Not Detectd) 06/23/22 11:00 Salicylates 1.5 mg/dL 06/23/22 09:51 Urine Opiates Screen Not Detected (NotDetected) 06/23/22 11:00 Ur Oxycodone Screen Not Detected (NotDetected) 06/23/22 11:00 Urine Methadone Screen Not Detected (NotDetected) 06/23/22 11:00 Ur Propoxyphene Screen Not Detected (NotDetected) 06/23/22 11:00 Acetaminophen <10.0 ug/mL 06/23/22 09:51 Ur Barbiturates Screen Not Detected (NotDetected) 06/23/22 11:00 U Tricyclic Antidepress Detected (NotDetected) H 06/23/22 11:00 Ur Phencyclidine Scrn Not Detected (NotDetected) 06/23/22 11:00 Ur Amphetamines Screen Detected (NotDetected) H 06/23/22 11:00 U Methamphetamines Scrn Detected (NotDetected) H 06/23/22 11:00 U Benzodiazepines Scrn Not Detected (NotDetected) 06/23/22 11:00 Urine Cocaine Screen Not Detected (NotDetected) 06/23/22 11:00 U Marijuana (THC) Screen Detected (NotDetected) H 06/23/22 11:00 Serum Alcohol <10 mg/dL 06/23/22 06:45 Influenza Type A (PCR) Not Detected (Not Detectd) 06/23/22 06:36 Influenza Type B (PCR) Not Detected (Not Detectd) 06/23/22 06:36 RSV (PCR) Not Detected (Not Detectd) 06/23/22 06:36 SARS-CoV-2 (PCR) Not Detected (Not Detectd) 06/23/22 06:36 06/24/22 11:54 IDENTIFYING DATA: Patient is a , unemployed, 42-year-old female with significant history of methamphetamine use disorder, thyroid disorder, and seizure disorder who presents to the hospital on 06/23/2022 with altered mental status. HPI: Patient presented to the hospital on 06/23/2022 brought in by EMS after being found altered. Patient was initially discovered to have be altered and was given dextrose and evaluated medically for concern for seizure. EPS attempted to assess the patient during which she began yelling and making statements that her friends had poisoned her. She began to demand for an litigation attorney associate as she felt the ED was not taking care of her appropriately. As per EPS assessment, "Patient presents with pressured and tangential speech. She refused to verify her address and phone number because 'I don't want to say them out loud because then someone is gonna steal my Medicaid!' ... She responds to internal stimuli." She was susbsequently admitted onto the psychiatric unit. Upon assessment on the psychiatric unit, the patient continues to endorse significant psychotic symptoms. She is grossly disorganized and is difficult to get a linear timeline of events that lead up to hospitalization. She states that she has been poisoned by her friends and workers at this hospital who are friends with her friends. She states she had a recent outbreak of a rash and that is how she knows she was poisoned. Furthermore she reports that "they have placed cameras around my bathroom and are video taping me. I heard them talking about it and about me." She reports that she is currently staying with her grandmother. When asked about any substance use, the patient states it has been more thna 3 months since she last used however did test positive for amphetamines, methamphetamines and cannabis on admission. She is currently reporting that she has STDs that need to evaluated. She is admitted for further evaluation and treatment. PAST PSYCHIATRIC HISTORY: As per chart review: Patient has a history of depression, methamphetamine abuse, and cannabis abuse. She has had previous trials of Seroquel, Cymbalta, trazodone, Topamax, and Catapres. She was last discharged on a regimen of abilify maintena, cymbalta and gabapentin from this unit in december of 2021. The patient has reportedly not followed up in the outpatient setting and is now court ordered for treatment. Patient denies any prior attempts at suicide. PMH: Past Medical History: Cancer, Fibromyalgia, Osteoarthritis (OA), Seizure Disorder, Thyroid Disorder Additional Past Medical History / Comment(s): Pt tested covid + on 09/21/[address] George's office. Other hx: MIgraines, chronic back pain, occasional edema legs/feet, hypothyroid, cervical cancer with treatment. History of Any Multi-Drug Resistant Organisms: MRSA Date of last positivie culture/infection: 2007 MDRO Source:: L knee Past Surgical History: Adenoidectomy, Section, Tubal Ligation Additional Past Surgical History / Comment(s): Procedure for cervical cancer/pt cannot recall type of procedure, D&C, lumbar epidurals Past Anesthesia/Blood Transfusion Reactions: Postoperative Nausea & Vomiting (PONV) Additional Past Anesthesia/Blood Transfusion Reaction / Comment(s): Occasional PONV Past Psychological History: Anxiety, Depression Smoking Status: Current some day smoker, Vaper Past Alcohol Use History: Occasional Past Drug Use History: None Reported, Methamphetamine, Prescription Drug Abuse ALLERGIES: aspirin, ibuprofen, penicillins. CHEMICAL DEPENDENCY HISTORY: The patient vehemently denies any drug use for amphetamines, methamphetamines, marijuana on admission. She has a history of being fixated on pain management occasions in the past. FAMILY PSYCHIATRIC/SUBSTANCE USE HISTORY: As per chart review, the patient's sister and mother "bipolar schizophrenics." SOCIAL HISTORY: As per chart review: "The patient has undergone significant trauma. In 2002, the patient experienced a stillbirth of her child. Furthermore, her in 2004.'s in between 2002 and 2004 she has had numerous grandparents as well. The patient is now . She is currently unemployed. The patient has spent some time living in [place] prior to returning to [place]." MENTAL STATUS EXAM: General Appearance: Patient appears to be stated age is alert, however difficult to direct, but attempts to cooperate. Patient appears to have very poor hygiene and grooming. Behavior: Patient is lying down in bed however display psychomotor agitation. Poor eye contact. Speech: Patient's speech is pressured, no change, nonlinear. Mood/Affect: Patient reports their mood is "not good," affect is dysphoric and tearful. Suicidality/Homicidality: Patient is denying any suicidal or homicidal ideation Perceptions: Patient is denying any auditory or visual hallucinations. Though content/process: The patient endorses significant paranoid delusions. Memory and concentration: Grossly poor Judgment and insight: Very poor STRENGTHS/WEAKNESSES: Patient is currently under court order. Weakness is the patient engages in polysubstance abuse and nonadherence with treatment. INTELLECT: average IMPRESSIONS: Schizoaffective Disorder, bipolar type Methamphetamine use disorder Cannabis use disorder Tobacco use disorder PLAN: -Patient is admitted under involuntary status to [facility] for stabilization of psychiatric symptoms and safety. She is court ordered for treatment. -Medications : Risperdal 1 mg by mouth twice a day with plans to transition to long-acting injectable for mood stabilization/psychosis Continue gabapentin 600 mg by mouth twice a day, Topamax 200 mg by mouth twice a day - Seizure disorder Continue Cymbalta 60 mg by mouth daily for depression/neuropathic pain -Ativan and Haldol PRN for agitation/aggression -Vistaril PRN for anxiety -Patient was counselled on substance abuse however he denies any use. -Patient was informed of the risks, benefits and side effects of the medication and patient verbally consented to taking the medications. Patient signed med consent form and was placed in chart. -Internal Medicine consult to perform medical evaluation and physical. -NRT - nicotine patch -SW on board for discharge planning. Encourage patient to participate in groups to work on coping skills. 06/24/22 11:54
[2022-06-24 17:00] LABS: Chol/HDL Ratio 2.08 Ratio; LDL Cholesterol,Calculated 101.8 mg/dL (0.0-131.0)
[2022-06-24] MEDS: ACETAMINOPHEN TAB 325 MG TAB PO PRN (17:21)
[2022-06-24] MEDS: risperiDONE 1 MG TAB PO SCH (21:26)
[2022-06-25] MEDS: LEVOTHYROXINE 75 MCG TAB PO SCH (06:31)
[2022-06-25] MEDS: NICOTINE 14MG/24HR PATCH TRANSDERM SCH (09:06)
[2022-06-25] MEDS: DULoxetine HCL 60 MG CAPSULE.DR PO SCH (09:06)
[2022-06-25] MEDS: TOPIRAMATE 100 MG TAB PO SCH ×2 (09:06→21:53)
[2022-06-25] MEDS: MELOXICAM 7.5 MG TAB PO SCH (09:06)
[2022-06-25] MEDS: risperiDONE 1 MG TAB PO SCH (09:06)
[2022-06-25] MEDS: GABAPENTIN 300 MG CAP PO SCH ×2 (09:09→21:53)
--- NOTE | 2022-06-25 11:26 | P.PN ---
Progress Note - Text Progress Note Date: 06/25/22 Interval History: Patient was seen resting in bed and was directable and agreeable to speak with procedure writer in her room. Currently, the patient is reporting that she feels "tired." She is not endorsing any suicidal or homicidal ideation, intention, and/or plan today. She is not reporting any auditory or visual hallucinations. She is denying any paranoia or delusions. She expresses she is too tired to continue a conversation. She continues to deny substance abuse. She has been adherent with her medications. Mental Status Exam: General Appearance: Patient appears to be stated age is somnolent, but directable and attempts to cooperate. Behavior: Patient is calmly lying down in bed without any agitated behavior. Speech: Patient's speech is fluent and nonpressured. Mood/Affect: Mood is "tired," affect is congruent and somnolent Suicidality/Homicidality: Patient denies having any suicidal or homicidal ideation intent or plan. Perceptions: Patient denies any visual hallucinations and denies any auditory hallucinations Though content/process: There is no evidence of any delusional thought content and thought process is linear and goal-directed. Memory and concentration: AOX3, grossly intact for the purposes of this session Judgment and insight: Poor at baseline Vital Signs Temp 98.3 F 06/23/22 21:38 Pulse 100 06/23/22 21:38 Resp 18 06/23/22 21:38 BP 117/60 06/23/22 21:38 Pulse Ox 97 06/23/22 21:38 FiO2 Laboratory Results - Last 24 Hours 06/23/22 06:45 Triglycerides 66.00 Cholesterol 221.00 H LDL Cholesterol, Calc 101.8 VLDL Cholesterol, Calc 13.20 HDL Cholesterol 106.00 H Cholesterol/HDL Ratio 2.08 Assessment Schizoaffective Disorder, bipolar type Methamphetamine use disorder Cannabis use disorder Tobacco use disorder Plan: -Patient continues to meet criteria for inpatient psychiatric admission for symptom stabilization and safety. Patient is court ordered for treatment. -Medications: Increase Risperdal to 2 mg by mouth twice a day with plans to transition to long-acting injectable for mood stabilization/psychosis Continue gabapentin 600 mg by mouth twice a day, Topamax 200 mg by mouth twice a day - Seizure disorder Decrease cymbalta to 30 mg by mouth daily with plans to taper due to polypharmacy . -When necessary Ativan and Haldol for agitation/aggression. -NRT - nicotine patch -SW on board for discharge planning. Encouraged the patient to participate in milieu.
[2022-06-25] MEDS: ACETAMINOPHEN TAB 325 MG TAB PO PRN (16:57)
[2022-06-25] MEDS ORDERED: LIDOCAINE VISCOUS 2% 15 ML CUP MUCOUS MEM ONE (18:08)
[2022-06-25] MEDS: risperiDONE 2 MG TAB PO SCH (21:53)
[2022-06-26] MEDS: LEVOTHYROXINE 75 MCG TAB PO SCH (06:20)
[2022-06-26 06:22] VITALS: BP 151/52; PULSE 86; RESP 14; TEMP 96.8
[2022-06-26] MEDS ORDERED: DULoxetine HCL 30 MG CAPSULE.DR PO SCH (09:00)
[2022-06-26] MEDS: GABAPENTIN 300 MG CAP PO SCH (09:32)
[2022-06-26] MEDS: TOPIRAMATE 100 MG TAB PO SCH ×2 (09:32→20:41)
[2022-06-26] MEDS: NICOTINE 14MG/24HR PATCH TRANSDERM SCH (09:32)
[2022-06-26] MEDS: risperiDONE 2 MG TAB PO SCH (09:33)
[2022-06-26] MEDS: MELOXICAM 7.5 MG TAB PO SCH (09:34)
[2022-06-26] MEDS: ACETAMINOPHEN TAB 325 MG TAB PO PRN ×2 (09:36→20:41)
[2022-06-26] MEDS ORDERED: risperiDONE 120 MG SYR (NO COST) PHARMACY STOCK SQ ONE (09:54)
--- NOTE | 2022-06-26 12:20 | P.PN ---
Progress Note - Text Progress Note Date: 06/26/22 Interval History: Patient was seen attending group and was directable and agreeable to speak with senior underwriter in the office. Currently, the patient is reporting that she feels "better." She has been attending groups and reports better energy. She continues to be fixated on the belief that she has been poisoned and that "Ed, a nurse in the ED" is affiliated with the friends that have poisoned her or gave her STDs. She has requested STD testing. She denies any dysuria, polyuria, discharge, fever or chills. She was again informed she tested positive for methamphetamines however continues to deny any use. She was shown that she tested positive for meth 4 out of the last 5 admissions. She otherwise denies any auditory or visual hallucinations. She reports no suicidal or homicidal ideation, intention, and/or plan. She reports no medical issues or concerns. Patient requests Adderall. Mental Status Exam: General Appearance: Patient appears to be stated age is alert, directable and cooperative. Behavior: Patient is calmly lying down in bed without any agitated behavior. Speech: Patient's speech is fluent and nonpressured. Mood/Affect: Mood is "I think I have STDs," affect is euthymic with full range. Suicidality/Homicidality: Patient denies having any suicidal or homicidal ideation intent or plan. Perceptions: Patient denies any visual hallucinations and denies any auditory hallucinations Though content/process: There is no evidence of any delusional thought content and thought process is linear and goal-directed. Memory and concentration: AOX3, grossly intact for the purposes of this session Judgment and insight: Poor at baseline Vital Signs Temp 96.8 F L 06/26/22 06:21 Pulse 86 06/26/22 06:21 Resp 14 06/26/22 06:21 BP 151/52 06/26/22 06:21 Pulse Ox 97 06/23/22 21:38 FiO2 Laboratory Results - Last 24 Hours 06/26/22 06:00 Treponema pallidum Ab Nonreactive Assessment Schizoaffective Disorder, bipolar type Methamphetamine use disorder Cannabis use disorder Tobacco use disorder Plan: -Patient continues to meet criteria for inpatient psychiatric admission for symptom stabilization and safety. Patient is court ordered for treatment. -Medications: Start Risperdal Perseris 120 mg SubQ today. Topamax 200 mg by mouth twice a day - Seizure disorder Discontinue Cymbalta. Increase Gabapentin to 400 mg three times a day for off-label anxiety -When necessary Ativan and Haldol for agitation/aggression. -NRT - nicotine patch -SW on board for discharge planning. Encouraged the patient to participate in milieu.
[2022-06-26] MEDS: BENZOCAINE 20 % GEL 11.9 GM TUBE MM PRN ×2 (12:23→20:41)
[2022-06-26 13:52] LABS: HIV 2 AB Non-Reactive (Non-Reactive); HIV AB P24 Non-Reactive (Non-Reactive); HIV P24 AG Non-Reactive (Non-Reactive)
[2022-06-26 14:06] LABS: C. trachomatis,PCR Negative (Neg,Equiv); Chlamydia trachomatis Source Urine; N. gonorrhoeae,PCR Negative (Neg,Equiv); Neisseria Source Urine
[2022-06-26] MEDS: GABAPENTIN 400 MG CAP PO SCH ×2 (16:50→20:41)
[2022-06-27 05:16] LABS: Herpes simplex I and/or II IgM 1.98 INDEX (<=0.90); Herpes simplex IgG I Ab 31.4 (< or = 0.90); Herpes simplex IgG II Ab 1.2 (< or = 0.90)
[2022-06-27] MEDS: LEVOTHYROXINE 75 MCG TAB PO SCH (07:01)
[2022-06-27] MEDS: TOPIRAMATE 100 MG TAB PO SCH (08:55)
[2022-06-27] MEDS: NICOTINE 14MG/24HR PATCH TRANSDERM SCH (08:55)
[2022-06-27] MEDS: MELOXICAM 7.5 MG TAB PO SCH (08:56)
[2022-06-27] MEDS: GABAPENTIN 400 MG CAP PO SCH (08:56)
[2022-06-27] MEDS ORDERED: DULoxetine HCL 30 MG CAPSULE.DR PO STA (10:29)
--- NOTE | 2022-06-27 12:21 | P.DS ---
Providers Date of admission: 06/23/22 20:49 Expected date of discharge: 06/27/22 Attending physician: Wiliam Perkins MD Consults: 06/23/22 20:56 Consult Physician Routine Consulting Provider: Dewayne George Consult Reason/Comments: H&P and medical Do you want consulting provider notified?: Yes, Notify in am Primary care physician: Dewayne George MD - Discharge Diagnosis(es) (1) Schizoaffective disorder, bipolar type Current Visit: Yes Status: Acute Priority: High (2) Methamphetamine use disorder, severe Current Visit: Yes Status: Acute Priority: High (3) Tobacco use disorder Current Visit: Yes Status: Chronic Priority: Medium (4) Cannabis use disorder Current Visit: Yes Status: Chronic Priority: Medium Hospital Course: Admission HPI: Patient is a , unemployed, 42-year-old female with significant history of methamphetamine use disorder, thyroid disorder, and seizure disorder who presents to the hospital on 06/23/2022 with altered mental status. Patient presented to the hospital on 06/23/2022 brought in by EMS after being found altered. Patient was initially discovered to have be altered and was given dextrose and evaluated medically for concern for seizure. EPS attempted to assess the patient during which she began yelling and making statements that her friends had poisoned her. She began to demand for an assistant attorney general as she felt the ED was not taking care of her appropriately. As per EPS assessment, "Patient presents with pressured and tangential speech. She refused to verify her address and phone number because 'I don't want to say them out loud because then someone is gonna steal my Medicaid!' ... She responds to internal stimuli." She was susbsequently admitted onto the psychiatric unit. Upon assessment on the psychiatric unit, the patient continues to endorse significant psychotic symptoms. She is grossly disorganized and is difficult to get a linear timeline of events that lead up to hospitalization. She states that she has been poisoned by her friends and workers at this hospital who are friends with her friends. She states she had a recent outbreak of a rash and that is how she knows she was poisoned. Furthermore she reports that "they have placed cameras around my bathroom and are video taping me. I heard them talking about it and about me." She reports that she is currently staying with her g randmother. When asked about any substance use, the patient states it has been more thna 3 months since she last used however did test positive for amphetamines, methamphetamines and cannabis on admission. She is currently reporting that she has STDs that need to evaluated. She is admitted for further evaluation and treatment. As per chart review: Patient has a history of depression, methamphetamine abuse, and cannabis abuse. She has had previous trials of Seroquel, Cymbalta, trazodone, Topamax, and Catapres. She was last discharged on a regimen of abilify maintena, cymbalta and gabapentin from this unit in december of 2021. The patient has reportedly not followed up in the outpatient setting and is now court ordered for treatment. Patient denies any prior attempts at suicide. Hospital course: Upon admission to the unit patient was initially presenting as delusional and psychotic. She was also notably dysphoric. Patient was however directable and agreeable to commence treatment. She was already court-ordered for mental health treatment. Patient was compliant with the medications and denied any side effects throughout hospital course. Patient was started on Risperdal for psyc hosis and her home medications of gabapentin, topamax, and cymbalta were continued. Patient spoke of her stressors and engaged in therapy both group and individual. Patient was also seen by medical team for history and physical exam. Over the course of the hospitalization, the patient became more grounded in reality and less psychotic. She was less forthcoming with her bizarre delusions of poisoning and conspiracy against her. She displayed improvement in mood, energy, sleep, appetite, and was linear and logical in conversation. She tolerated her medication well and was transitioned to risperdal perseris on 06/26/2022. On the day of discharge, she is not reporting any suicidal or homicidal ideation, intention, and/or plan. She reports no auditory or visual hallucinations. She reports no paranoia or other delusions. She has been adherent with her medications and is not reporting any significant side effects. She has a significant history of methamphetamine abuse however vehemently denies use despite testing positive on admission. She was counseled at length on abstaining from all substances including alcohol, marijuana, tobacco, and illicit drugs. She was offered however declined inpatient substance-abuse rehabilitation. She expresses future orientation and is excited to see her grandmother. As the patient on longer met criteria for continued inpatient psychiatric admission, she was subsequent to discharge. She reported no medical issues or concerns on the day of discharge and denies any chest pain, shortness of breath, palpitations, or EPS symptoms. Mental status exam: General Appearance: Patient appears to be stated age is alert, pleasant, and cooperative. Patient is in no acute distress and has fair hygiene and grooming Behavior: Patient is calmly seated without any agitated behavior. Speech: Patient's speech is fluent and nonpressured. Mood/Affect: Patient reports their mood is "much better", affect is congruent and euthymic to bright. Suicidality/Homicidality: Patient denies having any suicidal or homicidal ideation intent or plan. Perceptions: Patient denies any auditory or visual hallucinations. Though content/process: There is no evidence of any delusional thought content and thought process is linear and goal-directed. Patient is future oriented Memory and concentration: AOX3, grossly intact for the purposes of this session. Can spell "WORLD" backwards correctly. Judgment and insight: Improved with guarded prognosis Impression: Schizoaffective Disorder, bipolar type Methamphetamine use disorder Cannabis use disorder Tobacco use disorder Plan: -Continue with discharge today as patient has improved and stabilized psychiatrically and is not currently an imminent threat to herself and/or others. Patient will remain at chronically elevated risk for harm to self and/or others due to his impulsivity and polysubstance abuse. -Continue medications: Cymbalta 30 mg by mouth twice a day for depression/anxiety Synthroid 75 g for thyroid disorder Risperdal perseris 120 mg SubQ last administered on 06/26/2022. Next dose due on 07/24/2022. Habitrol patches for nicotine cessation Gabapentin 400 mg by mouth 3 times a day for offlabel anxiety and for neuropathic pain. -Patient was counseled on the need for medication compliance and appropriate follow-up at mental health and also primary care for medical issues. Patient verbalized understanding and agreed. -Social work to arrange for and conduct family meeting to ensure safety upon discharge and answer any questions/concerns. Social work also to arrange for patients follow up appointments with [facility] for psychiatric care along with follow up with primary care provider. -Patient counseled on abstaining from recreational drugs and marijuana and alcohol. Was informed/educated on the adverse effects on their physical and mental health. Patient verbally agreed and understood. Patient was offered substance abuse treatment however declined at this time. -Patient was instructed to return to the hospital or seek immediate medical care if their psychiatric or medical symptoms do worsen or reoccur. -Psychoeducation and supportive therapy provided to patient. Risks and benefits of pharmacological treatment versus the risks and benefits of nontreatment weight and discussed. Informed consent discussion held. Common side effects of psychotropics discussed such as, but not limited to headache, GI disturbance, sexual dysfunction, movement disorders, sedation, and orthostatic hypotension. Life threatening and blackbox warnings of prescribed medications also discussed. Potential risks of operating a vehicle or heavy machinery discussed with patient at length. Advised on importance of compliance and a reliable and responsible manner. Patient advised to review FDA consumer labeling of all medications prior to taking. Patient verbalized understanding of potential risks, and agrees with current treatment plan. Patient advised to medically contact physician/emergency personnel if any acute changes in condition occur. Vital Signs Temp 96.8 F L 06/26/22 06:21 Pulse 86 06/26/22 06:21 Resp 14 06/26/22 06:21 BP 151/52 06/26/22 06:21 Pulse Ox 97 06/23/22 21:38 FiO2 Laboratory Results WBC 10.8 k/uL (3.8-10.6) H 06/23/22 06:45 RBC 3.92 m/uL (3.80-5.40) 06/23/22 06:45 Hgb 13.3 gm/dL (11.4-16.0) 06/23/22 06:45 Hct 40.0 % (34.0-46.0) 06/23/22 06:45 MCV 102.2 fL (80.0-100.0) H 06/23/22 06:45 MCH 34.0 pg (25.0-35.0) 06/23/22 06:45 MCHC 33.3 g/dL (31.0-37.0) 06/23/22 06:45 RDW 13.8 % (11.5-15.5) 06/23/22 06:45 Plt Count 139 k/uL (150-450) L 06/23/22 06:45 MPV 7.7 06/23/22 06:45 Neutrophils % 77 % 06/23/22 06:45 Lymphocytes % 15 % 06/23/22 06:45 Monocytes % 4 % 06/23/22 06:45 Eosinophils % 2 % 06/23/22 06:45 Basophils % 0 % 06/23/22 06:45 Neutrophils # 8.3 k/uL (1.3-7.7) H 06/23/22 06:45 Lymphocytes # 1.6 k/uL (1.0-4.8) 06/23/22 06:45 Monocytes # 0.4 k/uL (0-1.0) 06/23/22 06:45 Eosinophils # 0.2 k/uL (0-0.7) 06/23/22 06:45 Basophils # 0.0 k/uL (0-0.2) 06/23/22 06:45 Macrocytosis Slight 06/23/22 06:45 Sodium 141 mmol/L (137-145) 06/23/22 06:45 Potassium 3.5 mmol/L (3.5-5.1) 06/23/22 06:45 Chloride 111 mmol/L (98-107) H 06/23/22 06:45 Carbon Dioxide 19 mmol/L (22-30) L 06/23/22 06:45 Anion Gap 11 mmol/L 06/23/22 06:45 BUN 25 mg/dL (7-17) H 06/23/22 06:45 Creatinine 0.88 mg/dL (0.52-1.04) 06/23/22 06:45 Est GFR (CKD-EPI)AfAm >90 (>60 ml/min/1.73 sqM) 06/23/22 06:45 Est GFR (CKD-EPI)NonAf 81 (>60 ml/min/1.73 sqM) 06/23/22 06:45 Glucose 115 mg/dL (74-99) H 06/23/22 06:45 POC Glucose (mg/dL) 125 mg/dL (70-110) H 06/23/22 06:18 POC Glu Automatic Thread Winder JEAN Omaira Mojica 06/23/22 06:[address] Glu mg/dL 109 06/23/22 06:45 Hemoglobin A1c 5.4 % (0.0-6.0) 06/23/22 06:45 Calcium 8.7 mg/dL (8.4-10.2) 06/23/22 06:45 Total Bilirubin 0.8 mg/dL (0.2-1.3) 06/23/22 06:45 AST 51 U/L (14-36) H 06/23/22 06:45 ALT 38 U/L (4-34) H 06/23/22 06:45 Alkaline Phosphatase 65 U/L (38-126) 06/23/22 06:45 Total Protein 8.0 g/dL (6.3-8.2) 06/23/22 06:45 Albumin 4.5 g/dL (3.5-5.0) 06/23/22 06:45 Triglycerides 66.00 mg/dL (0.00-149.00) 06/23/22 06:45 Cholesterol 221.00 mg/dL (0.00-200.00) H 06/23/22 06:45 LDL Cholesterol, Calc 101.8 mg/dL (0.0-131.0) 06/23/22 06:45 VLDL Cholesterol, Calc 13.20 mg/dL (5.00-40.00) 06/23/22 06:45 HDL Cholesterol 106.00 mg/dL (40.00-60.00) H 06/23/22 06:45 Cholesterol/HDL Ratio 2.08 Ratio 06/23/22 06:45 TSH 3.440 mIU/L (0.465-4.680) 06/23/22 06:45 Urine Color Yellow 06/23/22 11:00 Urine Appearance Cloudy (Clear) H 06/23/22 11:00 Urine pH 5.5 (5.0-8.0) 06/23/22 11:00 Ur Specific [place] 1.026 (1.001-1.035) 06/23/22 11:00 Urine Protein Trace (Negative) H 06/23/22 11:00 Urine Glucose (UA) Negative (Negative) 06/23/22 11:00 Urine Ketones 1+ (Negative) H 06/23/22 11:00 Urine Blood Negative (Negative) 06/23/22 11:00 Urine Nitrite Positive (Negative) H 06/23/22 11:00 Urine Bilirubin Negative (Negative) 06/23/22 11:00 Urine Urobilinogen <2.0 mg/dL (<2.0) 06/23/22 11:00 Ur Leukocyte Esterase Trace (Negative) H 06/23/22 11:00 Urine RBC 1 /hpf (0-5) 06/23/22 11:00 Urine WBC 4 /hpf (0-5) 06/23/22 11:00 Ur Squamous Epith Cells 2 /hpf (0-4) 06/23/22 11:00 Urine Bacteria Many /hpf (None) H 06/23/22 11:00 Hyaline Casts 1 /lpf (0-2) 06/23/22 11:00 Urine Mucus Rare /hpf (None) H 06/23/22 11:00 Urine HCG, Qual Not Detected (Not Detectd) 06/23/22 11:00 Salicylates 1.5 mg/dL 06/23/22 09:51 Urine Opiates Screen Not Detected (NotDetected) 06/23/22 11:00 Ur Oxycodone Screen Not Detected (NotDetected) 06/23/22 11:00 Urine Methadone Screen Not Detected (NotDetected) 06/23/22 11:00 Ur Propoxyphene Screen Not Detected (NotDetected) 06/23/22 11:00 Acetaminophen <10.0 ug/mL 06/23/22 09:51 Ur Barbiturates Screen Not Detected (NotDetected) 06/23/22 11:00 U Tricyclic Antidepress Detected (NotDetected) H 06/23/22 11:00 Ur Phencyclidine Scrn Not Detected (NotDetected) 06/23/22 11:00 Ur Amphetamines Screen Detected (NotDetected) H 06/23/22 11:00 U Methamphetamines Scrn Detected (NotDetected) H 06/23/22 11:00 U Benzodiazepines Scrn Not Detected (NotDetected) 06/23/22 11:00 Urine Cocaine Screen Not Detected (NotDetected) 06/23/22 11:00 U Marijuana (THC) Screen Detected (NotDetected) H 06/23/22 11:00 Serum Alcohol <10 mg/dL 06/23/22 06:45 Treponema pallidum Ab Nonreactive (Nonreactive) 06/26/22 06:00 Chlamydia Source Urine 06/25/22 20:53 Chlamydia DNA (PCR) Negative (Neg,Equiv) 06/25/22 20:53 HSV I&II IgM Ab 1.98 INDEX (<=0.90) H 06/26/22 06:00 HSV I IgG Ab 31.40 (< or = 0.90) H 06/26/22 06:00 HSV II IgG 1.20 (< or = 0.90) H 06/26/22 06:00 HIV-1 Antibody Non-Reactive (Non-Reactive) 06/26/22 06:00 HIV Ag/Ab Interpret 06/26/22 06:00 HIV p24 Antibody Non-Reactive (Non-Reactive) 06/26/22 06:00 HIV-2 Antibody Non-Reactive (Non-Reactive) 06/26/22 06:00 HIV P24 Antigen Non-Reactive (Non-Reactive) 06/26/22 06:00 Influenza Type A (PCR) Not Detected (Not Detectd) 06/23/22 06:36 Influenza Type B (PCR) Not Detected (Not Detectd) 06/23/22 06:36 N. gonorrhoeae Source Urine 06/25/22 20:53 N.gonorrhoeae DNA Probe Negative (Neg,Equiv) 06/25/22 20:53 RSV (PCR) Not Detected (Not Detectd) 06/23/22 06:36 SARS-CoV-2 (PCR) Not Detected (Not Detectd) 06/23/22 06:36 Allergies Allergy/AdvReac Type Severity Reaction Status Date / Time aspirin Allergy Unknown Verified 06/23/22 09:50 ibuprofen Allergy Unknown Verified 06/23/22 09:50 Penicillins Allergy Unknown Verified 06/23/22 09:50 Patient Condition at Discharge: Stable Plan - Discharge Summary New Discharge Prescriptions: New DULoxetine HCL [Cymbalta] 30 mg PO BID 30 Days #60 cap Levothyroxine Sodium [Synthroid] 75 mcg PO DAILY@30 30 Days #30 tab risperiDONE ER inj [Perseris] 120 mg SQ Q28D #1 each Nicotine 14Mg/24Hr Patch [Habitrol] 1 patch TRANSDERM DAILY 15 Days #15 patch Gabapentin [Neurontin] 400 mg PO TID 15 Days #45 cap Continue Topiramate [Topamax] 200 mg PO BID Meloxicam [Mobic] 7.5 mg PO DAILY Diclofenac Sodium Gel [Voltaren Gel] 4 gm TOPICAL QID PRN PRN Reason: Pain Discontinued Levothyroxine Sodium [Synthroid] 75 mcg PO DAILY@0630 30 Days tab Nicotine 21Mg/24Hr Patch [Habitrol] 1 patch TRANSDERM DAILY Gabapentin 600 mg PO BID DULoxetine HCL [Cymbalta] 60 mg PO DAILY Cyclobenzaprine [Flexeril] 10 mg PO BID PRN PRN Reason: Muscle Spasm Discharge Medication List Topiramate [Topamax] 200 mg PO BID 06/26/21 [History] Diclofenac Sodium Gel [Voltaren Gel] 4 gm TOPICAL QID PRN 06/23/22 [History] Meloxicam [Mobic] 7.5 mg PO DAILY 06/23/22 [History] DULoxetine HCL [Cymbalta] 30 mg PO BID 30 Days #60 cap 06/27/22 [Rx] Gabapentin [Neurontin] 400 mg PO TID 15 Days #45 cap 06/27/22 [Rx] Levothyroxine Sodium [Synthroid] 75 mcg PO DAILY@0630 30 Days #30 tab 06/27/22 [Rx] Nicotine 14Mg/24Hr Patch [Habitrol] 1 patch TRANSDERM DAILY 15 Days #15 patch 06/27/22 [Rx] risperiDONE ER inj [Perseris] 120 mg SQ Q28D #1 each 06/27/22 [Rx] Follow up Appointment(s)/Referral(s): [facility] [Outside] - 06/27/22 9:00 am (intake on unit with Karine) Dewayne George MD [Primary Care Provider] - 1-2 days Activity/Diet/Wound Care/Special Instructions: Avoid the use of street drugs and alcohol. Take all prescriptions as prescribed. When you are in need of refills on your medications, please contact your medical provider and/or outpatient psychiatrist to have this done. Please go to scheduled outpatient appointment for aftercare treatment. If symptoms return or become worse, call the crisis line at and/or go to the nearest emergency room for evaluation Discharge Disposition: HOME SELF-CARE
[2022-06-27] MEDS ORDERED: DULoxetine HCL 30 MG CAPSULE.DR PO SCH (21:00)
== END 2022-06-27 13:34 | disposition home or self-care (01) | DRG 885 ==
LOC: EC 06:12 → 3MHU 20:49
PROVIDERS: ADMIT Psychiatry & Neurology Psychiatry; ATTEND Psychiatry & Neurology Psychiatry
DX: F25.0 Schizoaffective disorder, bipolar type (principal); R45.851 Suicidal ideations; F17.290 Nicotine dependence, other tobacco product, uncomplicated; F41.9 Anxiety disorder, unspecified; M79.7 Fibromyalgia; K76.82 Hepatic encephalopathy; G89.29 Other chronic pain; Z20.822 Contact with and (suspected) exposure to COVID-19; E03.9 Hypothyroidism, unspecified; G43.909 Migraine, unspecified, not intractable, without status migrainosus; Z79.1 Long term (current) use of non-steroidal anti-inflammatories (NSAID); Z79.899 Other long term (current) drug therapy; Z79.890 Hormone replacement therapy; Z85.41 Personal history of malignant neoplasm of cervix uteri; Z86.16 Personal history of COVID-19; Z86.14 Personal history of Methicillin resistant Staphylococcus aureus infection; Z88.6 Allergy status to analgesic agent; Z88.0 Allergy status to penicillin; Z98.51 Tubal ligation status; Z71.6 Tobacco abuse counseling; Z71.51 Drug abuse counseling and surveillance of drug abuser
CPT/HCPCS: 36415; 70450; 71046; 80053; 80061; 80143; 80179; 80306; 80320; 81001; 81025; 83036; 84443; 85025; 86694; 86695; 86696; 86780; 87390; 87491; 87591; 87636; 96360; 96361; 99285

== ENCOUNTER 2024-01-18 13:00 | Inpatient (IN) | payer OTHER ==
[~2024-01-18 13:00] MED LIST: HYDROmorphone 1 MG/ML 1 ML SYRINGE ONE; ONDANSETRON 4 MG/2 ML VIAL ONE; PANTOPRAZOLE 40 MG/10 ML VIAL ONE; SODIUM CHLORIDE 0.9% 1,000 ML BAG ONE; cefTRIAXone IN SWFI 1,000 MG/10 ML SYRINGE IVP ONE
[2024-01-18] MEDS ORDERED: metroNIDAZOLE-NS PMX 100 ML ONE (19:36)
[2024-01-18] MEDS ORDERED: SODIUM CHLORIDE 0.9% 1,000 ML BAG ONE (19:45)
[2024-01-18] MEDS ORDERED: MORPHINE SULFATE 4 MG/ML SYRINGE ONE ×2 (20:21→23:09)
[2024-01-18] MEDS ORDERED: TOPIRAMATE 25 MG TAB ONE (23:07)
[2024-01-18] MEDS ORDERED: GABAPENTIN 300 MG CAP ONE (23:08)
[2024-01-19] MEDS ORDERED: TOPIRAMATE 100 MG TAB ONE (00:01)
[2024-01-19] MEDS ORDERED: SODIUM CHLORIDE 0.9% 50 ML BAG ONE (00:01)
[2024-01-19] MEDS ORDERED: SODIUM CHLORIDE 0.9% 1,000 ML BAG ONE (00:01)
[2024-01-19] MEDS ORDERED: LEVOTHYROXINE 75 MCG TAB ONE (06:14)
[2024-01-19] MEDS ORDERED: MORPHINE SULFATE 4 MG/ML SYRINGE ONE ×2 (06:28→23:07)
[2024-01-19] MEDS ORDERED: DULoxetine HCL 60 MG CAPSULE.DR PO ONE (09:44)
[2024-01-19] MEDS ORDERED: ENOXAPARIN 40 MG/0.4 ML SYRINGE SQ ONE (09:44)
[2024-01-19] MEDS ORDERED: NICOTINE 21MG/24HR PATCH TRANSDERM ONE (09:45)
[2024-01-19] MEDS ORDERED: GABAPENTIN 300 MG CAP ONE ×3 (09:45→20:50)
[2024-01-19] MEDS ORDERED: TOPIRAMATE 25 MG TAB ONE (09:50)
[2024-01-19] MEDS ORDERED: cefTRIAXone 2 GM VIAL ONE (09:51)
[2024-01-19] MEDS ORDERED: metroNIDAZOLE-NS PMX 100 ML ONE ×2 (09:51→16:33)
[2024-01-19] MEDS ORDERED: POTASSIUM CHLORIDE ER 20 MEQ TAB.ER PO ONE (13:12)
[2024-01-19] MEDS ORDERED: MAGNESIUM SULFATE-D5W PMX 200 ML IVPB ONE (13:21)
[2024-01-19] MEDS ORDERED: DEXAMETHASONE SOD PHOSPHATE 4 MG/ML 1 ML VIAL ONE (16:57)
[2024-01-20] MEDS ORDERED: SODIUM CHLORIDE 0.9% 1,000 ML BAG ONE (00:01)
[2024-01-20] MEDS ORDERED: SODIUM CHLORIDE 0.9% 50 ML BAG ONE (00:01)
[2024-01-20] MEDS ORDERED: metroNIDAZOLE-NS PMX 100 ML ONE ×4 (00:07→17:11)
[2024-01-20] MEDS ORDERED: MORPHINE SULFATE 4 MG/ML SYRINGE ONE ×2 (02:11→21:46)
[2024-01-20] MEDS ORDERED: LEVOTHYROXINE 75 MCG TAB ONE (05:56)
[2024-01-20] MEDS ORDERED: GABAPENTIN 300 MG CAP ONE ×2 (08:41→21:24)
[2024-01-20] MEDS ORDERED: TOPIRAMATE 25 MG TAB ONE ×2 (08:43→21:25)
[2024-01-20] MEDS ORDERED: ENOXAPARIN 40 MG/0.4 ML SYRINGE SQ ONE (08:45)
[2024-01-20] MEDS ORDERED: DULoxetine HCL 60 MG CAPSULE.DR PO ONE (08:45)
[2024-01-20] MEDS ORDERED: NICOTINE 21MG/24HR PATCH TRANSDERM ONE (08:45)
[2024-01-20] MEDS ORDERED: cefTRIAXone 2 GM VIAL ONE (08:54)
[2024-01-20] MEDS ORDERED: HYDROcodone/APAP 7.5-325MG 1 EACH TAB ONE ×2 (11:19→21:24)
[2024-01-21] MEDS ORDERED: SODIUM CHLORIDE 0.9% 50 ML BAG ONE (00:01)
[2024-01-21] MEDS ORDERED: SODIUM CHLORIDE 0.9% 1,000 ML BAG ONE (00:01)
[2024-01-21] MEDS ORDERED: metroNIDAZOLE-NS PMX 100 ML ONE ×4 (01:13→17:37)
[2024-01-21] MEDS ORDERED: DEXAMETHASONE SOD PHOSPHATE 4 MG/ML 1 ML VIAL ONE (05:54)
[2024-01-21] MEDS ORDERED: LEVOTHYROXINE 75 MCG TAB ONE (06:27)
[2024-01-21] MEDS ORDERED: GABAPENTIN 300 MG CAP ONE ×3 (06:36→20:26)
[2024-01-21] MEDS ORDERED: TOPIRAMATE 25 MG TAB ONE ×2 (08:34→08:39)
[2024-01-21] MEDS ORDERED: cefTRIAXone 2 GM VIAL ONE (08:34)
[2024-01-21] MEDS ORDERED: ENOXAPARIN 40 MG/0.4 ML SYRINGE SQ ONE (08:34)
[2024-01-21] MEDS ORDERED: NICOTINE 21MG/24HR PATCH TRANSDERM ONE (08:34)
[2024-01-21] MEDS ORDERED: PANTOPRAZOLE 40 MG/10 ML VIAL ONE ×2 (08:35→20:26)
[2024-01-21] MEDS ORDERED: DULoxetine HCL 60 MG CAPSULE.DR PO ONE (08:35)
[2024-01-21] MEDS ORDERED: HYDROcodone/APAP 7.5-325MG 1 EACH TAB ONE (12:56)
[2024-01-21] MEDS ORDERED: POTASSIUM CHLORIDE ER 20 MEQ TAB.ER PO ONE (17:26)
[2024-01-21] MEDS ORDERED: ONDANSETRON 4 MG/2 ML VIAL ONE (20:26)
[2024-01-21] MEDS ORDERED: MORPHINE SULFATE 4 MG/ML SYRINGE ONE (20:56)
[2024-01-22] MEDS ORDERED: SODIUM CHLORIDE 0.9% 50 ML BAG ONE (00:01)
[2024-01-22] MEDS ORDERED: SODIUM CHLORIDE 0.9% 1,000 ML BAG ONE (00:01)
[2024-01-22] MEDS ORDERED: HYDROcodone/APAP 7.5-325MG 1 EACH TAB ONE ×2 (04:13→20:35)
[2024-01-22] MEDS ORDERED: LEVOTHYROXINE 75 MCG TAB ONE (05:54)
[2024-01-22] MEDS ORDERED: GABAPENTIN 300 MG CAP ONE ×3 (05:54→20:34)
[2024-01-22] MEDS ORDERED: metroNIDAZOLE-NS PMX 100 ML ONE ×3 (05:57→18:19)
[2024-01-22] MEDS ORDERED: ENOXAPARIN 40 MG/0.4 ML SYRINGE SQ ONE (09:04)
[2024-01-22] MEDS ORDERED: DULoxetine HCL 60 MG CAPSULE.DR PO ONE (09:04)
[2024-01-22] MEDS ORDERED: PANTOPRAZOLE 40 MG/10 ML VIAL ONE ×2 (09:04→20:34)
[2024-01-22] MEDS ORDERED: NICOTINE 21MG/24HR PATCH TRANSDERM ONE (09:05)
[2024-01-22] MEDS ORDERED: cefTRIAXone 2 GM VIAL ONE (09:06)
[2024-01-22] MEDS ORDERED: MORPHINE SULFATE 4 MG/ML SYRINGE ONE (11:40)
[2024-01-22] MEDS ORDERED: TOPIRAMATE 25 MG TAB ONE ×2 (21:01→21:02)
[2024-01-23] MEDS ORDERED: metroNIDAZOLE-NS PMX 100 ML ONE ×4 (00:24→17:16)
[2024-01-23] MEDS ORDERED: MORPHINE SULFATE 4 MG/ML SYRINGE ONE ×2 (01:02→15:03)
[2024-01-23] MEDS ORDERED: HYDROcodone/APAP 7.5-325MG 1 EACH TAB ONE (05:56)
[2024-01-23] MEDS ORDERED: LEVOTHYROXINE 75 MCG TAB ONE (05:56)
[2024-01-23] MEDS ORDERED: GABAPENTIN 300 MG CAP ONE ×2 (08:00→17:16)
[2024-01-23] MEDS ORDERED: ENOXAPARIN 40 MG/0.4 ML SYRINGE SQ ONE (08:01)
[2024-01-23] MEDS ORDERED: DULoxetine HCL 60 MG CAPSULE.DR PO ONE (08:01)
[2024-01-23] MEDS ORDERED: PANTOPRAZOLE 40 MG/10 ML VIAL ONE (08:01)
[2024-01-23] MEDS ORDERED: NICOTINE 21MG/24HR PATCH TRANSDERM ONE (08:02)
[2024-01-23] MEDS ORDERED: cefTRIAXone 2 GM VIAL ONE (08:09)
[2024-01-23] MEDS ORDERED: PROCHLORPERAZINE INJ 10 MG/2 ML VIAL ONE (15:03)
[2024-01-23] MEDS ORDERED: NALOXONE 0.4 MG/ML 1 ML VIAL IVP PRN (22:26)
[2024-01-23] MEDS ORDERED: MORPHINE SULFATE 4 MG/ML SYRINGE IVP PRN (22:26)
[2024-01-23] MEDS ORDERED: PROCHLORPERAZINE INJ 10 MG/2 ML VIAL IVP PRN (22:28)
[2024-01-24] MEDS: SODIUM CHLORIDE 0.9% 1,000 ML IV SCH (02:55)
[2024-01-24] MEDS: metroNIDAZOLE-NS PMX 500 MG in SALINE 1 100ML.BAG IVPB SCH (02:55)
[2024-01-24] MEDS: LEVOTHYROXINE 75 MCG TAB PO SCH (06:34)
[2024-01-24] MEDS: NICOTINE 21MG/24HR PATCH TRANSDERM SCH (09:59)
[2024-01-24] MEDS: GABAPENTIN 300 MG CAP PO SCH (09:59)
[2024-01-24] MEDS: TOPIRAMATE 100 MG TAB PO SCH (09:59)
[2024-01-24] MEDS: DULoxetine HCL 60 MG CAPSULE.DR PO SCH (10:00)
[2024-01-24] MEDS: ENOXAPARIN 40 MG/0.4 ML SYRINGE SQ SCH (10:00)
--- NOTE | 2024-01-24 10:54 | P.PN ---
Progress Note - Text Progress Note Date: 01/24/24 Patient Seen and Examined. No acute events overnight. Still having some diffuse abdominal pain. Having diarrhea VSS General-NAD Abdomen-soft, mildly distended, mild diffuse TTP 43 year old female with colitis -Ok to advance to soft diet -Will need outpatient colonoscopy -Continue antibiotics -No acute surgical intervention
[2024-01-24] MEDS: PANTOPRAZOLE 40 MG/10 ML VIAL IVP SCH (11:22)
[2024-01-24] MEDS: HYDROcodone/APAP 5-325MG 1 EACH TAB PO PRN (12:45)
--- NOTE | 2024-01-24 16:35 | P.PN ---
Subjective Progress Note Date: 01/24/24 Hospital course: Patient is a 43-year-old female with a past medical history of polysubstance abuse with heroin and methamphetamines and hypothyroidism. Presented to the 01/18/2024 with a chief complaint of abdominal pain, nausea, and vomiting. She underwent evaluation in the emergency department. Labs were completed and reviewed showing no significant abnormalities. Urinalysis was positive for leukocytes but only 57 WBCs. Urine hCG was negative. Urine drug screen was positive for amphetamines and methamphetamines. CT abdomen and pelvis revealed complicated colitis with colonic wall thickening throughout cecum, ascending colon, descending colon, and sigmoid colon with hyperdense focus within distal small bowel lumen possibly reflecting small bowel hemorrhage. Patient admitted under our services with consultation to general surgery. Physical exam: Patient seen and fully evaluated at bedside this morning, she reports continued diffuse abdominal pain worse in the left lower quadrant. She does report her pain is improving. She denies nausea or vomiting does admit to having multiple episodes of diarrhea. Denies melena or hematochezia. Vital signs reviewed and stable. General: Nontoxic, no distress and appears stated age. Derm: Skin warm and dry, normal coloration for ethnicity. Head: Atraumatic, normocephalic and symmetric. Eyes: EOM's intact, no lid lag, and anicteric sclera Mouth: no lip lesions, mucus membranes moist Cardiovascular: regular rate and rhythm with normal S1S2, no murmur, positive posterior tibial pulses bilaterally, and cap refill < 2 seconds. Lungs: Respirations even, regular, and unlabored on room air. Lungs CTA bilaterally, no rhonchi, no rales, no wheezing, and no accessory muscle usage. Abdominal: soft, nondistended, diffuse tenderness reported upon palpation. Ext: ROM intact. No gross muscle atrophy, no edema, no contractures Neuro: Speech clear, face symmetrical and CN II-XII grossly intact with no noted focal neuro deficits Psych: Alert and oriented to person, place, time, and situation. Appropriate and pleasant affect. Assessment and Plan of Care: Complicated colitis involving cecum, ascending colon, descending colon, and sigmoid colon Hypomagnesemia Hypokalemia General Surgery following, reviewed documentation in chart. General surgery stating patient will need outpatient colonoscopy once complete course of treatment for current colitis. Diet advanced to soft diet, monitor how patient tolerates Continue IV antibiotics with Flagyl and Rocephin. Symptomatic care and pain management. Now that diet has advanced, will discontinue IV fluids. Zofran as needed for nausea or vomiting. Protonix 40 mg IVP twice daily for GI prophylaxis. Polysubstance abuse with heroin and methamphetamines Anxiety and depression Continue duloxetine 60 mg daily, Neurontin 300 mg 3 times daily, and Topamax 200 mg twice daily. Strongly recommend cessation of methamphetamines and heroin. Recommend inpatient drug and alcohol rehabilitation facility Hypothyroidism Continue daily medication regimen with levothyroxine 75 mcg daily. Data and imaging reviewed: Vital signs reviewed. Blood pressure 106/66, heart rate 61, rest [place] rate 16, temp 98.7 F, and SpO2 of 99% on room air. CODE STATUS: Full Code DVT prophylaxis: Lovenox Anticipated discharge date: Likely within the next 24 to 48 hours pending patient's tolerance of advancing diet. Anticipated discharge place: Home Patient was seen independently by Nurse Pracitioner. This document was prepared using [employer] dictation software. Please allow for errors in machine specialist, while rare they do occur. Arnie Fulton NP rendered care for this patient independently, reviewed the findings and plan as documented in the note above. I did not physically speak with or examine the patient on this date. Objective - Vital Signs Vital signs: Vital Signs Temp 98.7 F 01/24/24 08:08 Pulse 61 01/24/24 08:08 Resp 16 01/24/24 08:08 BP 106/66 01/24/24 08:08 Pulse Ox 99 01/24/24 08:08 FiO2 Intake & Output 01/23/24 01/24/24 01/24/24 18:59 06:59 18:59 Intake Total 354 Balance 354 Weight 55.792 kg Intake: Oral 354 Other: # Voids 4
--- NOTE | 2024-01-25 10:03 | P.PN ---
Subjective Progress Note Date: 01/25/24 Hospital course: Patient is a 43-year-old female with a past medical history of polysubstance abuse with heroin and methamphetamines and hypothyroidism. Presented to the 01/18/2024 with a chief complaint of abdominal pain, nausea, and vomiting. She underwent evaluation in the emergency department. Labs were completed and reviewed showing no significant abnormalities. Urinalysis was positive for leukocytes but only 57 WBCs. Urine hCG was negative. Urine drug screen was positive for amphetamines and methamphetamines. CT abdomen and pelvis revealed complicated colitis with colonic wall thickening throughout cecum, ascending colon, descending colon, and sigmoid colon with hyperdense focus within distal small bowel lumen possibly reflecting small bowel hemorrhage. Patient admitted under our services with consultation to general surgery. Physical exam: Patient seen and fully evaluated at bedside this morning, she reports continued diffuse abdominal pain worse in the right lower quadrant this morning. She also reports increased nausea and states no bowel movement or further episodes of diarrhea since the evening of 01/23/2024. She denies any episodes of vomiting. Vital signs reviewed and stable. General: Nontoxic, no distress and appears stated age. Derm: Skin warm and dry, normal coloration for ethnicity. Head: Atraumatic, normocephalic and symmetric. Eyes: EOM's intact, no lid lag, and anicteric sclera Mouth: no lip lesions, mucus membranes moist Cardiovascular: regular rate and rhythm with normal S1S2, no murmur, positive posterior tibial pulses bilaterally, and cap refill < 2 seconds. Lungs: Respirations even, regular, and unlabored on room air. Lungs CTA bilaterally, no rhonchi, no rales, no wheezing, and no accessory muscle usage. Abdominal: soft, nondistended, diffuse tenderness reported upon palpation. Ext: ROM intact. No gross muscle atrophy, no edema, no contractures Neuro: Speech clear, face symmetrical and CN II-XII grossly intact with no noted focal neuro deficits Psych: Alert and oriented to person, place, time, and situation. Appropriate and pleasant affect. Assessment and Plan of Care: Complicated colitis involving cecum, ascending colon, descending colon, and sigmoid colon Hypomagnesemia Hypokalemia General Surgery following, discussed patient's reports of worsening pain with Dr. Fine. Patient to be made n.p.o. and will place order for CT with IV and oral contrast. NPO except for medications Continue IV antibiotics with Flagyl and Rocephin. Symptomatic care and pain management. Order placed for CT abdomen and pelvis with oral and IV contrast. Repeat CBC, CMP, and magnesium STAT 1 L bolus LR for hypotension with blood pressure 89/50 followed by maintenance infusion at 125 an hour. Zofran as needed for nausea or vomiting. Protonix 40 mg IVP twice daily for GI prophylaxis. Polysubstance abuse with heroin and methamphetamines Anxiety and depression Continue duloxetine 60 mg daily, Neurontin 300 mg 3 times daily, and Topamax 200 mg twice daily. Strongly recommend cessation of methamphetamines and heroin. Recommend inpatient drug and alcohol rehabilitation facility Hypothyroidism Continue daily medication regimen with levothyroxine 75 mcg daily. Data and imaging reviewed: Vital signs reviewed. Blood pressure 89/50, heart rate 63, respiratory rate 16, temp 98.3 F, and SpO2 of 100% on room air. CODE STATUS: Full Code DVT prophylaxis: Lovenox Anticipated discharge date: Pending clinical course. Anticipated discharge place: Home Patient was seen independently by Nurse Pracitioner. This document was prepared using [employer] dictation software. Please allow for errors in community health worker, while rare they do occur. Arnie Fulton NP rendered care for this patient independently, reviewed the findings and plan as documented in the note above. I did not physically speak with or examine the patient on this date. Objective - Vital Signs Vital signs: Vital Signs Temp 98.3 F 01/25/24 03:16 Pulse 63 01/25/24 03:16 Resp 16 01/25/24 03:16 BP 89/50 01/25/24 03:16 Pulse Ox 100 01/25/24 03:16 FiO2 Intake & Output 01/24/24 01/25/24 01/25/24 18:59 06:59 18:59 Intake Total 694 960 Balance 694 960 Intake: Oral 694 960 Other: # Voids 4 2
[2024-01-25] MEDS: ACETAMINOPHEN IV (For NPO) 1,000 MG in EMPTY BAG 1 BAG IVPB SCH (10:53)
[2024-01-25] MEDS: LACTATED RINGERS 1,000 ML IV SCH (10:54)
[2024-01-25] MEDS: LACTATED RINGERS 1,000 ML IV ONE (10:54)
[2024-01-25] MEDS: HYDROcodone/APAP 5-325MG 1 EACH TAB ONE ×4 (12:22→12:23)
[2024-01-25] MEDS: MORPHINE SULFATE 4 MG/ML SYRINGE ONE (12:22)
[2024-01-25 12:28] VITALS: BMI 21.1
[2024-01-25 15:05] LABS: HCT 36.7 % (34.0-46.0); HGB 11.6 gm/dL (11.4-16.0); MCH 31.6 pg (25.0-35.0); MCHC 31.7 g/dL (31.0-37.0); MCV 99.6 fL (80.0-100.0); Macrocytosis Slight; Mean Platelet Volume 8.1; Platelet Count 230 k/uL (150-450); RBC 3.68 m/uL (3.80-5.40); RDW 14.5 % (11.5-15.5); WBC 4.9 k/uL (3.8-10.6)
[2024-01-25 15:06] LABS: ALT 10 U/L (4-34); AST 17 U/L (14-36); African American GFR (CKD) 73 (>60 ml/min/1.73 sqM); Albumin 2.3 g/dL (3.5-5.0); Albumin/Globulin Ratio 0.9; Alkaline Phosphatase 57 U/L (38-126); Anion Gap 1 mmol/L; Blood Urea Nitrogen 10 mg/dL (7-17); Calcium 7.9 mg/dL (8.4-10.2); Carbon Dioxide 21 mmol/L (22-30); Chloride 116 mmol/L (98-107); Globulin 2.7 g/dL; Glucose 113 mg/dL (74-99); Magnesium 1.6 mg/dL (1.6-2.3); Non-African American GFR(CKD) 63 (>60 ml/min/1.73 sqM); Potassium 3.9 mmol/L (3.5-5.1); Sodium 138 mmol/L (137-145); Total Bilirubin 0.2 mg/dL (0.2-1.3)
--- NOTE | 2024-01-25 15:38 | P.PN ---
Subjective Patient seen and evaluated at bedside. Patient admits to similar pain compare to the previous week. Denies nausea or emesis at this time. Objective - Vital Signs Vital signs: Vital Signs Temp 98.4 F 01/25/24 08:00 Pulse 71 01/25/24 08:00 Resp 16 01/25/24 08:00 BP 108/70 01/25/24 08:00 Pulse Ox 100 01/25/24 08:00 FiO2 Intake & Output 01/24/24 01/25/24 01/25/24 18:59 06:59 18:59 Intake Total 600 113 8334 Balance 120 311 5307 Weight 55.792 kg Intake: Intake, IV Titration 1550 Amount ACETAMINOPHEN IV (For NPO 100 ) 1,000 mg In Empty Bag 1 bag @ 400 mls/hr IVPB Q6H [facility] Rx#:[id number] Lactated Ringers 1,000 ml 250 @ 125 mls/hr IV .Q8H [facility] Rx#:[id number] Lactated Ringers 1,000 ml 1000 @ 999 mls/hr IV .Q1H1M [facility] Rx#:[id number] cefTRIAXone 2 gm In 100 Sodium Chloride 0.9% 50 ml @ 100 mls/hr IVPB Q24HR [facility] Rx#:[id number] metroNIDAZOLE-NS PMX 500 100 mg In Saline 1 100ml.bag @ 100 mls/hr IVPB Q6HR [facility] Rx#:[id number] Oral 694 960 Other: Voiding Method Toilet # Voids 4 2 - Exam gen: nad cv: rrr pul: non labored breathing abd: soft, non distended, minimal tenderness to palpation in the right lower quadrant, no guarding or rebound tenderness - Labs CBC & Chem 7: 01/25/24 14:23 01/25/24 14:23 Labs: Abnormal Lab Results - Last 24 Hours (Table) 01/25/24 01/25/24 Range/Units 14:23 14:23 RBC 3.68 L (3.80-5.40) m/uL Chloride 116 H (98-107) mmol/L Carbon Dioxide 21 L (22-30) mmol/L Creatinine 1.07 H (0.52-1.04) mg/dL Glucose 113 H (74-99) mg/dL Calcium 7.9 L (8.4-10.2) mg/dL Total Protein 5.0 L (6.3-8.2) g/dL Albumin 2.3 L (3.5-5.0) g/dL Assessment and Plan Assessment: 43 yo female w/ right lower quadrant abdominal pain -follow up ctap -npo for now -low suspicion for surgical abdomen -pending ct, patient may be stable for discharge Time with Patient: Less than 30
[2024-01-25] MEDS: IOPAMIDOL CONTRAST (ORAL USE) VIAL PO PRN (16:37)
[2024-01-25] MEDS: ONDANSETRON 4 MG/2 ML VIAL IVP PRN (18:32)
[2024-01-25] MEDS: MAGNESIUM SULFATE-D5W PMX 1 GM in DEXTROSE/WATER 1 100ML.BAG IVPB SCH (18:32)
--- NOTE | 2024-01-25 19:14 | CT ---
EXAMINATION TYPE: CT abdomen pelvis w con CT DLP: 491.6 mGycm, Automated exposure control for dose reduction was used. DATE OF EXAM: 01/25/2024 6:32 PM COMPARISON: None. CLINICAL INDICATION:Female, 43 years old with history of F/U on extensive colitis, pt reports worse p ain; abdominal pain, colitis TECHNIQUE: Axial CT abdomen pelvis w con;Sagittal and coronal reformats were created on a separate w orkstation. Contrast used:100 mL of Isovue 300 with IV Contrast, (none if empty) Oral contrast used: with Oral Contrast (none if empty) FINDINGS: LOWER CHEST: Trace bilateral pleural effusions. ABDOMEN LIVER: Subcentimeter hypodense foci are seen in the right hepatic lobe too small to characterize. The liver parenchyma and attenuation otherwise within normal limits. GALLBLADDER AND BILE DUCTS: Layering increased densities within the lumen consistent with gallstones are present. PANCREAS: Unremarkable. SPLEEN: Unremarkable. ADRENAL GLANDS: Unremarkable. KIDNEYS AND URETERS: No evidence of hydronephrosis or renal calculus. Left ureteral stent is noted wi th the proximal portion seen within the renal pelvis and the distal tip terminating within the lumen of the urinary bladder. Right ureter is grossly unremarkable.. PELVIS BLADDER: Incompletely distended with mild circumferential wall thickening. REPRODUCTIVE: The uterus is not definitively visualized. ABDOMEN & PELVIS STOMACH AND BOWEL: Stomach is grossly unremarkable. The small bowel is of normal caliber. There is no table fat stranding seen deep within the pelvis surrounding the distal large bowel and portions of th e rectum. There is bowel wall thickening of the sigmoid colon. No organized surrounding fluid collect ions at this time. No evidence of bowel obstruction. PERITONEUM/RETROPERITONEUM: No evidence of pneumoperitoneum. There is trace free fluid noted within t he pelvis. VASCULATURE: No evidence of aortic aneurysm. MUSCULOSKELETAL: No acute osseous abnormalities LYMPH NODES: No gross evidence for lymphadenopathy. SOFT TISSUE/ABDOMINAL WALL: Diffuse soft tissue edema. IMPRESSION: 1. Findings concerning for acute sigmoid colitis/proctitis. 2. Cholelithiasis. 3. Trace ascites likely reactive. 4. Soft tissue anasarca. 5. Mild circumferential wall thickening of the urinary bladder may relate to incomplete distention ve rsus cystitis. Correlate with urinalysis.
[2024-01-26] MEDS: KETOROLAC 15 MG/ML 1 ML VIAL IVP STA (12:47)
[2024-01-26] MEDS: diphenhydrAMINE 50 MG/ML 1 ML VIAL IVP STA (12:47)
[2024-01-26] MEDS: PROCHLORPERAZINE INJ 10 MG/2 ML VIAL IVP STA (12:48)
--- NOTE | 2024-01-26 15:49 | P.PN ---
Progress Note - Text Progress Note Date: 01/26/24 Patient Seen and Examined. No acute events overnight. She states she is currently not having abdominal pain. She was hungry this morning and requested a Regular Diet. Her CT-AP from yesterday was reviewed which showed acute sigmoid colitis. However, she does not have a leukocytosis. She denies fevers and chills. She denies nausea and vomiting. VSS General-NAD Abdomen-soft, mildly distended, mild diffuse TTP 43 year old female with colitis -Regular diet -Will need outpatient colonoscopy in 4-6 weeks -Continue Rocephin/Flagyl -No acute surgical intervention
--- NOTE | 2024-01-26 16:39 | P.PN ---
Subjective Progress Note Date: 01/26/24 Hospital course: Patient is a 43-year-old female with a past medical history of polysubstance abuse with heroin and methamphetamines and hypothyroidism. Presented to the 01/18/2024 with a chief complaint of abdominal pain, nausea, and vomiting. She underwent evaluation in the emergency department. Labs were completed and reviewed showing no significant abnormalities. Urinalysis was positive for leukocytes but only 57 WBCs. Urine hCG was negative. Urine drug screen was positive for amphetamines and methamphetamines. CT abdomen and pelvis revealed complicated colitis with colonic wall thickening throughout cecum, ascending colon, descending colon, and sigmoid colon with hyperdense focus within distal small bowel lumen possibly reflecting small bowel hemorrhage. Patient admitted under our services with consultation to general surgery. Physical exam: Patient seen and fully evaluated at bedside this morning, she reports having a migraine headache. Discussed patient's reported allergy to aspirin and i buprofen and patient states they make her thirsty. Order placed for migraine cocktail consisting of Toradol, Benadryl, and Compazine. Patient does report feeling hungry and states abdominal pain is improving. She states she does not care how bad her stomach hurts she is not having surgery, so I am better. Vital signs reviewed and stable. General: Nontoxic, no distress and appears stated age. Derm: Skin warm and dry, normal coloration for ethnicity. Head: Atraumatic, normocephalic and symmetric. Eyes: EOM's intact, no lid lag, and anicteric sclera Mouth: no lip lesions, mucus membranes moist Cardiovascular: regular rate and rhythm with normal S1S2, no murmur, positive posterior tibial pulses bilaterally, and cap refill < 2 seconds. Lungs: Respirations even, regular, and unlabored on room air. Lungs CTA bilaterally, no rhonchi, no rales, no wheezing, and no accessory muscle usage. Abdominal: soft, nondistended, diffuse tenderness reported upon palpation. Ext: ROM intact. No gross muscle atrophy, no edema, no contractures Neuro: Speech clear, face symmetrical and CN II-XII grossly intact with no noted focal neuro deficits Psych: Alert and oriented to person, place, time, and situation. Appropriate and pleasant affect. Assessment and Plan of Care: Complicated colitis involving cecum, ascending colon, descending colon, and sigmoid colon Hypomagnesemia Hypokalemia General Surgery following, reviewed documentation in chart. NPO pending further recommendations from general surgery team. Continue IV antibiotics with Flagyl and Rocephin. Symptomatic care and pain management. CT abdomen and pelvis with IV and oral contrast was completed showing findings concerning for acute sigmoid colitis, cholelithiasis, and trace ascites and reports of mild circumferential wall thickening of the urinary bladder. Pending advancement of diet, continue maintenance infusion at 125 an hour. Zofran as needed for nausea or vomiting. Protonix 40 mg IVP twice daily for GI prophylaxis. Polysubstance abuse with heroin and methamphetamines Anxiety and depression Continue duloxetine 60 mg daily, Neurontin 300 mg 3 times daily, and Topamax 200 mg twice daily. Strongly recommend cessation of methamphetamines and heroin. Recommend inpatient drug and alcohol rehabilitation facility Hypothyroidism Continue daily medication regimen with levothyroxine 75 mcg daily. Data and imaging reviewed: Vital signs reviewed. Blood pressure 108/71, heart rate 55, respiratory rate 16, temp 98.3 F, and SpO2 of 99% on room air. Labs reviewed. CBC unremarkable. BMP showing non-anion gap metabolic acidosis with chloride of 116, bicarb of 21, and anion gap of 1. [place] 1.07. Blood glucose 113. Magnesium 1.6. CODE STATUS: Full Code DVT prophylaxis: Lovenox Anticipated discharge date: Pending clinical course. Anticipated discharge place: Home Patient was seen independently by Nurse Pracitioner. This document was prepared using [employer] dictation software. Please allow for errors in principal law clerk, while rare they do occur. I reviewed the documentation as provided by the KAMLA above, who is the original author of this note. I agree with the documented assessment and plan, with the following changes: none Objective - Vital Signs Vital signs: Vital Signs Temp 98.3 F 01/26/24 07:15 Pulse 55 L 01/26/24 07:15 Resp 16 01/26/24 07:15 BP 108/71 01/26/24 07:15 Pulse Ox 99 01/26/24 07:15 FiO2 Intake & Output 01/25/24 01/26/24 01/26/24 18:59 06:59 18:59 Intake Total 1550 Balance 1550 Weight 55.792 kg Intake: Intake, IV Titration 1550 Amount ACETAMINOPHEN IV (For NPO 100 ) 1,000 mg In Empty Bag 1 bag @ 400 mls/hr IVPB Q6H [facility] Rx#:[id number] Lactated Ringers 1,000 ml 250 @ 125 mls/hr IV .Q8H [facility] Rx#:[id number] Lactated Ringers 1,000 ml 1000 @ 999 mls/hr IV .Q1H1M [facility] Rx#:[id number] cefTRIAXone 2 gm In 100 Sodium Chloride 0.9% 50 ml @ 100 mls/hr IVPB Q24HR [facility] Rx#:[id number] metroNIDAZOLE-NS PMX 500 100 mg In Saline 1 100ml.bag @ 100 mls/hr IVPB Q6HR [facility] Rx#:[id number] Other: Voiding Method Toilet # Voids 3 3 - Labs CBC & Chem 7: 01/27/24 07:18 01/27/24 07:18 Labs: Abnormal Lab Results - Last 24 Hours (Table) 01/25/24 01/25/24 Range/Units 14:23 14:23 RBC 3.68 L (3.80-5.40) m/uL Chloride 116 H (98-107) mmol/L Carbon Dioxide 21 L (22-30) mmol/L Creatinine 1.07 H (0.52-1.04) mg/dL Glucose 113 H (74-99) mg/dL Calcium 7.9 L (8.4-10.2) mg/dL Total Protein 5.0 L (6.3-8.2) g/dL Albumin 2.3 L (3.5-5.0) g/dL
--- NOTE | 2024-01-27 07:40 | P.PN ---
Progress Note - Text Progress Note Date: 01/27/24 Patient Seen and Examined. No acute events overnight. She states she is currently not having abdominal pain. Tolerating Diet. She denies fevers and chills. She denies nausea and vomiting. She states she wants to go home. VSS General-NAD Abdomen-soft, mildly distended, mild diffuse TTP 43 year old female with colitis -Regular diet -Will need outpatient colonoscopy in 4-6 weeks -Continue Rocephin/Flagyl -No acute surgical intervention
[2024-01-27 09:05] VITALS: BP 101/63; PULSE 69; RESP 16; TEMP 98.1
[2024-01-27 10:39] LABS: HGB 12.1 g/dL (12.0-15.0); MCH 31.6 pg (27.0-32.0); MCV 101.8 FL (80.0-97.0); Mean Platelet Volume 9.7 FL (9.5-12.2); NRBC Per 100 WBC 0 X 10*3/uL (0.00-0.01); Platelet Count 219 X 10*3/uL (140-440); RBC 3.83 X 10*6/uL (4.10-5.20); RDW 14.3 % (11.5-14.5); WBC 4.81 X 10*3/uL (4.50-10.00)
[2024-01-27 10:47] LABS: ALT 13 U/L (8-44); AST 23 U/L (13-35); Alkaline Phosphatase 58 U/L (41-126); BUN/Creat Ratio 11.55 Ratio (12.00-20.00); Blood Urea Nitrogen 12.7 mg/dL (9.0-27.0); Calcium 8.1 mg/dL (8.7-10.3); Carbon Dioxide 22.3 mmol/L (21.6-31.8); Chloride 112 mmol/L (96-109); Globulin 2.5 g/dL (1.6-3.3); Glucose 73 mg/dL (70-110); Magnesium 1.9 mg/dL (1.5-2.4); Potassium 4.2 mmol/L (3.5-5.5); Sodium 142 mmol/L (135-145); Total Bilirubin <0.2 mg/dL (0.3-1.2); Total Protein 5.5 g/dL (6.2-8.2)
--- NOTE | 2024-01-27 11:44 | P.DS ---
Providers Date of admission: 01/18/24 13:00 Expected date of discharge: 01/27/24 Attending physician: Melania De Jesus MD Consults: 01/23/24 18:33 Consult Physician Routine Consulting Provider: Domingo Gonsalez Consult Reason/Comments: colitis Do you want consulting provider notified?: Already Contacted Placement Type Exists?: Yes Primary care physician: Stated None Hospital Course: Patient is a 43-year-old female with a past medical history of polysubstance abuse with heroin and methamphetamines and hypothyroidism. Presented to the 01/18/2024 with a chief complaint of abdominal pain, nausea, and vomiting. She underwent evaluation in the emergency department. Labs were completed and reviewed showing no significant abnormalities. Urinalysis was positive for leukocytes but only 57 WBCs. Urine hCG was negative. Urine drug screen was positive for amphetamines and methamphetamines. CT abdomen and pelvis revealed complicated colitis with colonic wall thickening throughout cecum, ascending colon, descending colon, and sigmoid colon with hyperdense focus within distal small bowel lumen possibly reflecting small bowel hemorrhage. Patient admitted under our services with consultation to general surgery. patient was initiated on IV fluids and antibiotics with ceftriaxone and Flagyl. she was seen by general surgery who did not advise surgical intervention. patient was also treated symptomatically with pain medications and Zofran. When I saw her today she was feeling much better, she was tolerating diet. No diarrhea, nausea or vomiting. No fevers or chills. Labs look okay. She was cleared by surgery for discharge today. She'll be discharged home in stable condition. Discharge diagnoses Complicated colitis involving cecum, ascending colon, descending colon, and sigmoid colon Hypomagnesemia Hypokalemia Polysubstance abuse with heroin and methamphetamines Anxiety and depression patient was seen and examined on the day of discharge 01/26 Time for discharge 35 minutes. Plan - Discharge Summary Discharge/Stand Alone Forms: AA Meetings Dist 22 & 24 - [facility], AA Meetings [facility], [facility], Who Do I Call?, Community Resources, Outpatient Counseling, Area PCPs
[2024-03-07 15:20] LABS: Cryptosporidium Antigen Negative (Negative)
== END 2024-01-27 13:43 | disposition home or self-care (01) | DRG 249 ==
LOC: MERGE 13:00 → 6NMEDSUR 13:00
PROVIDERS: ADMIT Internal Medicine; ATTEND Internal Medicine
DX: K52.9 Noninfective gastroenteritis and colitis, unspecified (principal); F41.9 Anxiety disorder, unspecified; F32.A Depression, unspecified; E87.6 Hypokalemia; E83.42 Hypomagnesemia; E03.9 Hypothyroidism, unspecified; F17.210 Nicotine dependence, cigarettes, uncomplicated; F19.10 Other psychoactive substance abuse, uncomplicated; F11.10 Opioid abuse, uncomplicated; F15.10 Other stimulant abuse, uncomplicated; Z79.890 Hormone replacement therapy; G40.909 Epilepsy, unspecified, not intractable, without status epilepticus; Z79.82 Long term (current) use of aspirin; Z79.899 Other long term (current) drug therapy
CPT/HCPCS: 74177; 80053; 83630; 83735; 85027; 87040; 87045; 87046; 87328; 87329; 96361; 96374; 96375; 99285

== ENCOUNTER 2024-07-01 01:34 | Emergency (ER) | payer OTHER ==
[2024-07-01 01:45] VITALS: RESP 17; TEMP 97.8
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
[2024-07-01 02:52] LABS: Basophils % (A) 0 %; Eosinophils # (A) 0.2 k/uL (0-0.7); Eosinophils % (A) 2 %; HCT 34.1 % (34.0-46.0); HGB 11.2 gm/dL (11.4-16.0); Lymphocytes # (A) 1.6 k/uL (1.0-4.8); Lymphocytes % (A) 23 %; MCH 31.6 pg (25.0-35.0); MCHC 32.7 g/dL (31.0-37.0); MCV 96.6 fL (80.0-100.0); Mean Platelet Volume 7.5; Monocytes # (A) 0.4 k/uL (0-1.0); Monocytes % (A) 5 %; Neutrophils # (A) 4.9 k/uL (1.3-7.7); Neutrophils % (A) 68 %; Platelet Count 156 k/uL (150-450); RBC 3.53 m/uL (3.80-5.40); RDW 13.4 % (11.5-15.5); WBC 7.2 k/uL (3.8-10.6)
[2024-07-01 03:03] LABS: ALT 10 U/L (4-34); AST 15 U/L (14-36); African American GFR (CKD) 77 (>60 ml/min/1.73 sqM); Alkaline Phosphatase 60 U/L (38-126); Anion Gap 9 mmol/L; Blood Urea Nitrogen 20 mg/dL (7-17); Calcium 7.2 mg/dL (8.4-10.2); Carbon Dioxide 18 mmol/L (22-30); Chloride 110 mmol/L (98-107); Glucose 91 mg/dL (74-99); Non-African American GFR(CKD) 67 (>60 ml/min/1.73 sqM); Potassium 3.4 mmol/L (3.5-5.1); Sodium 137 mmol/L (137-145); Total Bilirubin 0.3 mg/dL (0.2-1.3)
[2024-07-01] MEDS: ACETAMINOPHEN TAB 325 MG TAB PO STA (03:13)
[2024-07-01] MEDS: SODIUM CHLORIDE 0.9% 500 ML 500 ML IV STA (03:14)
[2024-07-01 03:26] LABS: Appearance,Urine Turbid (Clear); Bacteria,Urine Many /hpf; Bilirubin,Urine Negative (Negative); Blood,Urine Large (Negative); Color,Urine Yellow; Glucose,Urine (UA) Negative (Negative); Ketones,Urine Negative (Negative); Leukocyte Esterase,Urine Large (Negative); Mucus,Urine Rare /hpf; Nitrite,Urine Positive (Negative); PH, Urine 6.5 (5.0-8.0); Protein,Urine 2+ (Negative); RBC,Urine >182 /hpf (0-5); Specific Gravity,Urine 1.017 (1.001-1.035); Squamous Epithelial Cell,Urine 3 /hpf (0-4); Urobilinogen,Urine <2.0 mg/dL (<2.0); WBC,Urine >182 /hpf (0-5)
[2024-07-01 03:33] LABS: Amphetamine Screen,Urine Detected (NotDetected); Barbiturate Screen,Urine Not Detected (NotDetected); Benzodiazepines Screen,Urine Not Detected (NotDetected); Cocaine Screen,Urine Not Detected (NotDetected); Methadone Screen, Urine Not Detected (NotDetected); Opiate Screen,Urine Not Detected (NotDetected); Oxycodone Screen, Urine Not Detected (NotDetected); Phencyclidine Screen,Urine Not Detected (NotDetected); Tricyclic Antidepressant,Urine Not Detected (NotDetected); Urn Cannabinoid Scrn Detected (NotDetected)
--- NOTE | 2024-07-01 04:34 | CT ---
EXAM: CT Abdomen and Pelvis Without Intravenous Contrast CLINICAL HISTORY: ITS.REASON CT Reason: RLQ abd pain hematuria TECHNIQUE: Axial computed tomography images of the abdomen and pelvis without intravenous contrast. CTDI is 6.7 mGy and DLP is 364.4 mGy-cm. This CT exam was performed using one or more of the following dose reduction techniques: automated exposure control, adjustment of the mA and/or kV according to patient size, and/or use of iterative reconstruction technique. COMPARISON: No relevant prior studies available. FINDINGS: Lung bases: Unremarkable. No mass. No consolidation. ABDOMEN: Liver: Unremarkable. Gallbladder and bile ducts: Unremarkable. No calcified stones. No ductal dilation. Pancreas: Unremarkable. No ductal dilation. Spleen: Unremarkable. No splenomegaly. Adrenals: Unremarkable. No mass. Kidneys and ureters: Left-sided nephroureteral stent terminates in the urinary bladder. The distal end of the stent is surrounded by calcification/concretion. This may affect functioning the stent as there is moderate left-sided hydronephrosis. Stomach and bowel: Mild fecal retention, correlate for constipation. No obstruction. No mucosal thickening. PELVIS: Appendix: No findings to suggest acute appendicitis. Bladder: Unremarkable. No stones. Reproductive: Unremarkable as visualized. ABDOMEN and PELVIS: Intraperitoneal space: Unremarkable. No free air. No significant fluid collection. Bones/joints: No acute fracture. No dislocation. Soft tissues: Unremarkable. Vasculature: Unremarkable. No abdominal aortic aneurysm. Lymph nodes: Unremarkable. No enlarged lymph nodes. IMPRESSION: 1. Left-sided nephroureteral stent terminates in the urinary bladder. The distal end of the stent is surrounded by calcification/concretion. This may affect functioning the stent as there is moderate left-sided hydronephrosis. 2. Mild fecal retention, correlate for constipation.
[2024-07-01] MEDS: HYDROcodone/APAP 5-325MG 1 EACH TAB PO STA (05:59)
[2024-07-01 06:12] VITALS: BP 112/72; PULSE 73
== END 2024-07-01 06:38 | disposition home or self-care (01) ==
LOC: EC 01:34
DX: R31.9 Hematuria, unspecified (principal); E87.6 Hypokalemia; F17.200 Nicotine dependence, unspecified, uncomplicated; Z88.0 Allergy status to penicillin; Z88.6 Allergy status to analgesic agent; Z88.8 Allergy status to other drugs, medicaments and biological substances; Z86.16 Personal history of COVID-19; Z87.442 Personal history of urinary calculi
CPT/HCPCS: 36415; 74176; 80053; 80306; 81001; 81025; 83605; 85025; 87086; 99285